=== PATIENT | female | born 1985 | race Caucasian/White ===

== ENCOUNTER → 2016-09-18 | Outpatient (CLI) | payer OTHER ==
[~2016-09-18] MED LIST: /CIPR75TA OR; /ONDA4TA OR; /TAMS4CA OR; ACET65TA PO; CIPR500T4 PO; COZA25TA8 PO; HUMALOG SC; HUMIRA SC; HUMUINJ IJ; LISI2.5T3 GT; NOVOLOG100 MG/ML SC; PERC5TAB8 PO; PERC7.5T8 PO; PRIL40CA PO; REMICADE IV; VICO5TAB OR; VIT D 2000 PO; [UNRECOGNIZED DRUG - OTHER] PO; [UNRECOGNIZED DRUG - OTHER] SUBQ
[2016-09-18 18:34] LABS: ALBUMIN 4.2 GM/DL (3.2-5.2); ANION GAP 10 MEQ/L (8-16); BLOOD UREA NITROGEN 21 MG/DL (7-18); CALCIUM LEVEL 9.1 MG/DL (8.5-10.1); CARBON DIOXIDE LEVEL 25 MEQ/L (21-32); CHLORIDE LEVEL 106 MEQ/L (98-107); CREATININE FOR GFR 0.67 MG/DL (0.55-1.02); GLOMERULAR FILTRATION RATE > 60.0 (>60); GLUCOSE, FASTING 81 MG/DL (70-105); PHOSPHORUS LEVEL 3.8 MG/DL (2.5-4.9); SODIUM LEVEL 141 MEQ/L (136-145)
== END ==
LOC: M LAB 16:31
PROVIDERS: ATTEND Internal Medicine Nephrology
DX: N18.2 Chronic kidney disease, stage 2 (mild) (principal); E10.21 Type 1 diabetes mellitus with diabetic nephropathy

== ENCOUNTER → 2016-10-15 | Outpatient (CLI) | payer OTHER ==
--- NOTE | 2016-10-15 15:07 | REP ---
MRI CERVICAL SPINE WITHOUT CONTRAST: HISTORY: Neck pain. There is no disc bulge or herniation. The spinal canal and the neural foramina are patent. The spinal cord is normal in signal intensity. There is no intradural extramedullary lesion. Normal signal intensity is present in the cervical vertebral bodies. IMPRESSION: There is no disc bulge or herniation. Signed by Jax Virk MD 10/15/2016 03:08 P
--- NOTE | 2016-10-15 15:08 | REP ---
MRI THORACIC SPINE WITHOUT CONTRAST: HISTORY: Neck and shoulder pain. There is no disc bulge or herniation. The spinal canal and the neural foramina are patent. The spinal cord is normal in signal intensity. There is no intradural extramedullary lesion. Normal signal intensity is present in the thoracic vertebral bodies. IMPRESSION: There is no disc bulge or herniation. Signed by Jax Virk MD 10/15/2016 03:09 P
--- NOTE | 2016-10-15 15:10 | REP ---
MRI LUMBAR SPINE WITHOUT CONTRAST: HISTORY: Back pain. There is no disc bulge or herniation at the L1-2 through L5-S1 levels. The nerves exit the neural foramina without compression. The conus medullaris is normal in appearance terminating at the level of the L1-2 intervertebral disc. Normal signal intensity is present in the lumbar intervertebral discs and vertebral bodies. IMPRESSION: There is no disc bulge or herniation. Signed by Jax Virk MD 10/15/2016 03:19 P
== END ==
LOC: M RAD 12:40
PROVIDERS: ATTEND Neurological Surgery
DX: M43.04 Spondylolysis, thoracic region (principal); M47.896 Other spondylosis, lumbar region

== ENCOUNTER → 2016-10-16 | Outpatient (CLI) | payer OTHER ==
--- NOTE | 2016-10-16 15:03 | REP ---
CERVICAL SPINE, EIGHT VIEWS: HISTORY: Ankylosing spondylitis. COMPARISON: 05/26/2016 There is no acute fracture. The intervertebral discs are normal in height. An osteophyte is present on the C4 vertebral body. The neural foramina are patent. There are 2 mm of anterior subluxation of C3 on C4 with flexion. There is 1 mm of retrolisthesis of C3 on C4 with extension. There are 2 mm of anterior subluxation of C4 on C5 with flexion. This is not seen in neutral or extension radiographs. IMPRESSION: Degenerative change as described above. Signed by Jax Virk MD 10/16/2016 03:04 P
--- NOTE | 2016-10-16 15:05 | REP ---
LUMBAR SPINE, SEVEN VIEWS: HISTORY: Ankylosing spondylitis. There is no acute fracture or subluxation. The L2-3 through L4-5 intervertebral discs are decreased in height, consistent with disc degeneration. The facet joints are normal in appearance. IMPRESSION: Degenerative change as described above. Signed by Jax Virk MD 10/16/2016 03:05 P
== END ==
LOC: M LAB 13:28
PROVIDERS: ATTEND Neurological Surgery
DX: M45.7 Ankylosing spondylitis of lumbosacral region (principal); M47.892 Other spondylosis, cervical region; M47.896 Other spondylosis, lumbar region

== ENCOUNTER → 2017-02-01 | Outpatient (CLI) | payer OTHER, MEDICAID | LOC: M LAB 17:08 | PROVIDERS: ATTEND Physician Assistant | DX: N91.2 Amenorrhea, unspecified (principal) ==

== ENCOUNTER → 2017-02-24 | Outpatient (CLI) | payer OTHER, MEDICAID ==
[2017-02-24 20:27] LABS: BASO # 0.1 K/mm3 (0.0-0.2); BASO % 1.6 % (0.0-1.0); EOS # 0.1 K/mm3 (0.0-0.50); EOS % 0.8 % (0.0-3.0); LARGE UNSTAINED CELL # 0.1 K/mm3 (0.0-0.4); LARGE UNSTAINED CELL % 1.7 % (0.0-4.0); LYMPH # 1.3 K/mm3 (1.5-4.5); LYMPH % 17.9 % (24.0-44.0); MEAN CORPUSCULAR HEMOGLOBIN 29.9 pg (27.0-33.0); MEAN CORPUSCULAR HGB CONC 33.1 g/dl (32.0-36.5); MEAN CORPUSCULAR VOLUME 90.2 fl (80.0-96.0); MONO # 0.3 K/mm3 (0.0-0.8); MONO % 4.5 % (0.0-5.0); NEUTROPHILS # 5.2 K/mm3 (1.8-7.7); NEUTROPHILS % 73.5 % (36.0-66.0); PLATELET COUNT, AUTOMATED 356 k/mm3 (150-450); RED CELL DISTRIBUTION WIDTH 12.7 % (11.5-14.5); WHITE BLOOD COUNT 7.1 K/mm3 (4.0-10.0)
[2017-02-26 11:31] LABS: HBsAg Prenatal NEGATIVE (NEGATIVE)
== END ==
LOC: M LAB 18:24
PROVIDERS: ATTEND Internal Medicine Rheumatology
DX: Z36 Encounter for antenatal screening of mother (principal); Z3A.00 Weeks of gestation of pregnancy not specified

== ENCOUNTER → 2017-05-10 | Outpatient (CLI) | payer OTHER, MEDICAID ==
--- NOTE | 2017-05-11 07:43 | REP ---
Clinical: Anatomical evaluation. Comparison: 04/22/2017 . Findings: Examination demonstrates a single live intrauterine in breech presentation. motion is identified by technologist. Placenta is noted anteriorly and grade zero without evidence for placenta previa or abruption. Amniotic fluid volume is normal. Cervix measures 3.4 cm in length and appears closed. Nuchal cord is suggested. Gestational age by current measurements 18 weeks 0 days with KAIA 10/11/2017 . FHR equals 150 beats per minute. BPD 4.1 cm 18 weeks 4 days HC 14.3 cm 17 weeks 4 days AC 12.4 cm 18 weeks 0 days FL 2.7 cm 18 weeks 0 days HL 2.5 cm 17 weeks 6 days HC/AC ratio 1.15 Estimated weight 220 grams ( 48th percentile). Anatomical assessment demonstrates normal structures including cranium, choroid plexus, cavum, cerebellum/posterior fossa, lungs, diaphragm, stomach, cord insertion/three-vessel cord, kidneys/bladder, spine, and extremities. Impression: 1. Single live intrauterine in breech presentation. Estimated weight normal. Nuchal cord suggested. 2. Limited evaluation of the facial features and heart/ventricular outflow tracts. Remainder of the anatomical assessment is complete and normal. Signed by Carter Goodman MD 05/11/2017 07:34 A
== END ==
LOC: M SMT 11:04
PROVIDERS: ATTEND Specialist
DX: Z36 Encounter for antenatal screening of mother (principal); Z3A.18 18 weeks gestation of pregnancy

== ENCOUNTER → 2017-05-11 | Outpatient (CLI) | payer OTHER, MEDICAID | LOC: M SMT 15:28 | PROVIDERS: ATTEND Specialist | DX: Z31.438 Encounter for other genetic testing of female for procreative management (principal) ==

== ENCOUNTER → 2017-06-07 | Outpatient (CLI) | payer OTHER, MEDICAID ==
--- NOTE | 2017-06-07 13:20 | REP ---
OB ULTRASOUND: Real-time sonographic evaluation of the gravid uterus performed. There is a single living intrauterine gestation. Estimated gestational age 22 weeks based on prior ultrasound EDC 10/11/2017. Today's measurements indicate appropriate growth. BPD 53 mm = 22 weeks 1 day, 53rd percentile HC 194 mm = 21 weeks 4 days, 39th percentile AC 174 mm = 22 weeks 2 days, 58th percentile Femur length 38 mm = 22 weeks 0 days, 51st percentile HC/AC ratio 1.11 within normal range. Estimated weight 479 grams, 51st percentile. Cervix is closed and measures 3.5 cm in length. heart rate 144 beats per minute. SEEN/GROSSLY UNREMARKABLE Lateral ventricles Yes Posterior fossa Yes Upper lip Yes Four-chamber heart Yes LVOT Yes RVOT Yes Stomach Yes Cord insertion Yes Three vessel cord Yes Kidneys Yes Bladder Yes Spine No position: Vertex. Placenta: Anterior and grade 0 with no previa or abruption. Amniotic fluid: Within normal limits. Signed by Jayjay Martinez MD 06/07/2017 04:32 P
== END ==
LOC: M SMT 10:35
PROVIDERS: ATTEND Specialist
DX: O24.012 Pre-existing type 1 diabetes mellitus, in pregnancy, second trimester (principal); Z36.89 Encounter for other specified antenatal screening; E10.9 Type 1 diabetes mellitus without complications; Z96.41 Presence of insulin pump (external) (internal); Z3A.22 22 weeks gestation of pregnancy

== ENCOUNTER 2017-07-12 09:46 | Outpatient (CLI) | payer MEDICAID, OTHER ==
[~2017-07-12] VITALS: Ht 165.1 cm; Wt 69.0 kg
[2017-07-12] VITALS (7 sets, daily range): BP systolic 116–140; BP diastolic 70–88
[2017-07-12] MEDS ORDERED: LR 1,000 ML IV SCH (10:15)
[2017-07-12] MEDS ORDERED: LACTATED RINGER'S 1000 ML IV ONE (10:15)
[2017-07-12] MEDS ORDERED: ONDANSETRON 4MG/2ML VIAL (J2405) IV ONE (10:30)
[2017-07-12] MEDS ORDERED: NS 1,000 ML IV ONE (11:00)
[2017-07-12] MEDS ORDERED: NS 500 ML IV SCH (11:00)
[2017-07-12] MEDS ORDERED: SODIUM CHLORIDE 0.9% 1000 ML IV SCH (11:00)
[2017-07-12 11:11] LABS: MEAN CORPUSCULAR HEMOGLOBIN 29.9 pg (27.0-33.0); MEAN CORPUSCULAR VOLUME 87.8 fl (80.0-96.0); PLATELET COUNT, AUTOMATED 301 10^3/uL (150-450); RED CELL DISTRIBUTION WIDTH 13.2 % (11.5-14.5); WHITE BLOOD COUNT 7.8 10^3/uL (4.0-10.0)
[2017-07-12] MEDS ORDERED: PRENTAB9 PO (11:19)
[2017-07-12 11:37] LABS: ALBUMIN 2.8 GM/DL (3.2-5.2); ALBUMIN/GLOBULIN RATIO 0.74 (1.00-1.93); ALKALINE PHOSPHATASE 66 U/L (45-117); ALT/SGPT 15 U/L (12-78); ANION GAP 17 MEQ/L (8-16); AST/SGOT 15 U/L (7-37); BILIRUBIN,TOTAL 0.5 MG/DL (0.2-1.0); BLOOD UREA NITROGEN 13 MG/DL (7-18); CALCIUM LEVEL 8.7 MG/DL (8.5-10.1); CARBON DIOXIDE LEVEL 14 MEQ/L (21-32); CHLORIDE LEVEL 103 MEQ/L (98-107); CREATININE FOR GFR 0.72 MG/DL (0.55-1.02); GLOMERULAR FILTRATION RATE > 60.0 (>60); GLUCOSE, FASTING 317 MG/DL (70-105); POTASSIUM SERUM 4.2 MEQ/L (3.5-5.1); SODIUM LEVEL 134 MEQ/L (136-145); TOTAL PROTEIN 6.6 GM/DL (6.4-8.2)
[2017-07-12] MEDS ORDERED: NS 1,000 ML IV SCH (12:00)
[2017-07-12] MEDS ORDERED: FAMOTIDINE IV BAG 20 MG in APPROPRIATE DILUENT 1 EA IV ONE (12:30)
--- NOTE | 2017-07-12 12:33 | IPNPDOC ---
Text Note Date of Service The patient was seen on 07/12/17. NOTE 32yo KAIA 10/07/17. Presents from office @ 27w4d with reports of vomiting since last night. Reports possible food poisoning altho no one else in the house has been ill. Unable to tolerate fluids since 2329. 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 Changed pump site this am. FH 150, moderate variability. No UC CBC 7.8>10.3/30.3<301 CMP - glucose 317, NA 134, K 4.2, LFT WNL UA 1+ protein, 3+ glucose, 2+ ketone, 1+ leuk esterase Consulted Dr King. IV hydration, antiemetics. Recheck labs after 2 litres NS infused. VS,Fishbone, I+O VS, Fishbone, I+O Laboratory Tests 07/12/17 10:47 Red Blood Count 3.45 L, Mean Corpuscular Volume 87.8, Mean Corpuscular Hemoglobin 29.9, Mean Corpuscular Hemoglobin Concent 34.0, Red Cell Distribution Width 13.2, Calcium Level 8.7, Aspartate Amino Transf (AST/SGOT) 15 , Alanine Aminotransferase (ALT/SGPT) 15, Alkaline Phosphatase 66, Total Bilirubin 0.5, Total Protein 6.6, Albumin 2.8 L Vital Signs Date Time Temp Pulse Resp B/P (MAP) Pulse Ox O2 Delivery O2 Flow Rate FiO2 07/12/17 11:13 114 18 140/88 (105) 07/12/17 10:19 98.8 I&O- Last 24 Hours up to 6 AM 07/13/17 06:00 Output Total 300 ml Balance -300 ml April Young CNM Jul 12, 2017 12:32
[2017-07-12 17:37] LABS: MEAN CORPUSCULAR HEMOGLOBIN 29.1 pg (27.0-33.0); MEAN CORPUSCULAR HGB CONC 33.1 g/dl (32.0-36.5); MEAN CORPUSCULAR VOLUME 87.9 fl (80.0-96.0); PLATELET COUNT, AUTOMATED 300 10^3/uL (150-450); RED CELL DISTRIBUTION WIDTH 13.2 % (11.5-14.5); WHITE BLOOD COUNT 6.8 10^3/uL (4.0-10.0)
[2017-07-12 17:57] LABS: ALBUMIN 2.5 GM/DL (3.2-5.2); ALBUMIN/GLOBULIN RATIO 0.63 (1.00-1.93); ALKALINE PHOSPHATASE 67 U/L (45-117); ALT/SGPT 15 U/L (12-78); ANION GAP 16 MEQ/L (8-16); AST/SGOT 11 U/L (7-37); BILIRUBIN,TOTAL 0.5 MG/DL (0.2-1.0); BLOOD UREA NITROGEN 12 MG/DL (7-18); CALCIUM LEVEL 7.6 MG/DL (8.5-10.1); CARBON DIOXIDE LEVEL 15 MEQ/L (21-32); CHLORIDE LEVEL 108 MEQ/L (98-107); CREATININE FOR GFR 0.62 MG/DL (0.55-1.02); GLOMERULAR FILTRATION RATE > 60.0 (>60); GLUCOSE, FASTING 144 MG/DL (70-105); POTASSIUM SERUM 3.8 MEQ/L (3.5-5.1); SODIUM LEVEL 139 MEQ/L (136-145); TOTAL PROTEIN 6.5 GM/DL (6.4-8.2)
--- NOTE | 2017-07-12 20:02 | IPNPDOC ---
Text Note Date of Service The patient was seen on 07/12/17. NOTE Much improved following IV hydration. Tolerating sips and chips NST reassuring. Glucose down to 144. CBC stable Consult Dr King. OK for discharge Encourage fluids, slow increase of solids Keep next appt. Warnings reviewed. VS,Fishbone, I+O VS, Fishbone, I+O Laboratory Tests 07/12/17 10:47 Red Blood Count 3.45 L, Mean Corpuscular Volume 87.8, Mean Corpuscular Hemoglobin 29.9, Mean Corpuscular Hemoglobin Concent 34.0, Red Cell Distribution Width 13.2, Calcium Level 8.7, Aspartate Amino Transf (AST/SGOT) 15 , Alanine Aminotransferase (ALT/SGPT) 15, Alkaline Phosphatase 66, Total Bilirubin 0.5, Total Protein 6.6, Albumin 2.8 L 07/12/17 17:16 Red Blood Count 3.23 L, Mean Corpuscular Volume 87.9, Mean Corpuscular Hemoglobin 29.1, Mean Corpuscular Hemoglobin Concent 33.1, Red Cell Distribution Width 13.2, Calcium Level 7.6 L, Aspartate Amino Transf (AST/SGOT) 11, Alanine Aminotransferase (ALT/SGPT) 15, Alkaline Phosphatase 67, Total Bilirubin 0.5, Total Protein 6.5, Albumin 2.5 L Vital Signs Date Time Temp Pulse Resp B/P (MAP) Pulse Ox O2 Delivery O2 Flow Rate FiO2 07/12/17 16:24 112 18 137/82 (100) 07/12/17 14:24 98.9 I&O- Last 24 Hours up to 6 AM 07/13/17 06:00 Intake Total 1800 ml Output Total 900 ml Balance 900 ml April Young CNM Jul 12, 2017 20:02
== END 2017-07-12 19:00 | disposition home or self-care (01) ==
LOC: M LDO 09:46
PROVIDERS: ATTEND Advanced Practice Midwife
DX: O99.89 Other specified diseases and conditions complicating pregnancy, childbirth and the puerperium (principal); Z3A.27 27 weeks gestation of pregnancy; R11.10 Vomiting, unspecified; O24.012 Pre-existing type 1 diabetes mellitus, in pregnancy, second trimester; E10.9 Type 1 diabetes mellitus without complications; Z96.41 Presence of insulin pump (external) (internal); Z88.8 Allergy status to other drugs, medicaments and biological substances; O99.612 Diseases of the digestive system complicating pregnancy, second trimester
CPT/HCPCS: 36415; 80053; 81001; 85027; 96360; 96361; 96375; J2405

== ENCOUNTER → 2017-07-28 | Outpatient (CLI) | payer OTHER ==
[~2017-07-28] MED LIST changes: +PRENTAB9 PO
--- NOTE | 2017-07-28 14:02 | REP ---
OB ULTRASOUND: Real-time sonographic evaluation of the gravid uterus performed. There is a single living intrauterine gestation. Estimated gestational age 29 weeks 2 days. EDC 10/11/2017. Today's measurements indicate appropriate growth. BPD 76 mm = 30 weeks 4 days, 69th percentile HC 281 mm = 30 weeks 5 days, 72nd percentile AC 273 mm = 31 weeks 3 days, 82nd percentile Femur length 55 mm = 29 weeks 0 days, 43rd percentile HC/AC ratio 1.03 within normal range. Estimated weight 1582 grams, 71st percentile. Cervix is closed and measures 4.3 cm in length. heart rate 144 beats per minute. Amniotic fluid within normal limits, [place] 17.7 within normal range of 9.1-22.2. Biophysical profile score 8 out of 8. S/D ratio 3.51 slightly above normal range of 2.5 to 3.5. RI 0.72 within normal range of 0.59-0.75. The lateral ventricles, posterior fossa, stomach, three vessel cord, kidneys, and bladder are visualized and are grossly unremarkable. position vertex. Placenta posterior and fundal with no previa or abruption, grade 2. Signed by Jayjay Martinez MD 07/29/2017 09:13 A
== END ==
LOC: M SMT 11:07
PROVIDERS: ATTEND Obstetrics & Gynecology
DX: O24.012 Pre-existing type 1 diabetes mellitus, in pregnancy, second trimester (principal); Z3A.30 30 weeks gestation of pregnancy

== ENCOUNTER 2017-08-09 18:23 | Emergency (ER) | payer OTHER ==
[~2017-08-09] VITALS: Ht 165.1 cm; Wt 69.1 kg
[2017-08-09 18:24] VITALS: BP 142/81
[2017-08-09] MEDS ORDERED: ACET50TA PO (19:06)
[2017-08-09] MEDS ORDERED: INSUH10VL SC (19:08)
[2017-08-09] MEDS ORDERED: TUMS500C PO (19:09)
[2017-08-09] MEDS ORDERED: ZANTTAB PO (19:09)
== END 2017-08-09 18:53 | disposition admitted as inpatient to this hospital (09) ==
LOC: M ED 18:23
DX: Z53.21 Procedure and treatment not carried out due to patient leaving prior to being seen by health care provider (principal)

== ENCOUNTER 2017-08-09 18:37 | Outpatient (CLI) | payer OTHER ==
[~2017-08-09] VITALS: Ht 165.1 cm; Wt 76.4 kg
[2017-08-09 18:49] VITALS: BP 146/87
[2017-08-09] MEDS ORDERED: ACET50TA PO (19:06)
[2017-08-09 19:08] VITALS: BP 132/78
[2017-08-09] MEDS ORDERED: INSUH10VL SC (19:08)
[2017-08-09] MEDS ORDERED: ZANTTAB PO (19:09)
[2017-08-09] MEDS ORDERED: TUMS500C PO (19:09)
[2017-08-09 19:23] VITALS: BP 128/90
[2017-08-09 19:35] LABS: BASO % 0.3 % (0.0-1.0); EOS % 0.1 % (0.0-3.0); IMMATURE GRANULOCYTE % 0.7 % (0-0); LYMPH # 0.9 10^3/uL (1.5-4.5); LYMPH % 12.2 % (24.0-44.0); MEAN CORPUSCULAR HEMOGLOBIN 27.9 pg (27.0-33.0); MEAN CORPUSCULAR HGB CONC 32.7 g/dl (32.0-36.5); MEAN CORPUSCULAR VOLUME 85.3 fl (80.0-96.0); MONO # 0.7 10^3/uL (0.0-0.8); MONO % 9.8 % (0.0-5.0); NEUTROPHILS # 5.7 10^3/uL (1.8-7.7); NEUTROPHILS % 76.9 % (36.0-66.0); PLATELET COUNT, AUTOMATED 328 10^3/uL (150-450); RED CELL DISTRIBUTION WIDTH 12.6 % (11.5-14.5); WHITE BLOOD COUNT 7.4 10^3/uL (4.0-10.0)
[2017-08-09] MEDS ORDERED: ACETAMINOPHEN 500 MG TAB PO PRN (20:00)
--- NOTE | 2017-08-09 20:00 | IPNPDOC ---
Text Note Date of Service The patient was seen on 08/09/17. NOTE 32yo KAIA 10/07/17. Presents from ED @ 31w4d with complaints of extreme shortness of breath since last night. Denies LOF or bleeding. Reports backache but no uterine contractions. Fetus active. History significant for type I diabetes. Pt uses an insulin pump. She has previously expeienced DKA. Denies recent n/v/d. Appears air hungry, slow deep inhalations VSS, 100% sat on room air FH 145, moderate variability, + accels Abdomen soft, gravid. No UC palpated or noted on monitor Lower extremity edema + [address] King for orders. Labs and xray pending. VS,Fishbone, I+O VS, Fishbone, I+O Laboratory Tests 08/09/17 19:22 Red Blood Count 3.19 L, Mean Corpuscular Volume 85.3, Mean Corpuscular Hemoglobin 27.9, Mean Corpuscular Hemoglobin Concent 32.7, Red Cell Distribution Width 12.6, Neutrophils (%) (Auto) 76.9 H, Lymphocytes (%) (Auto) 12.2 L, Monocytes (%) (Auto) 9.8 H, Eosinophils (%) (Auto) 0.1, Basophils (%) ( Auto) 0.3, Neutrophils # (Auto) 5.7, Lymphocytes # (Auto) 0.9 L, Monocytes # ( Auto) 0.7, Eosinophils # (Auto) 0.0, Basophils # (Auto) 0.0 Vital Signs Date Time Temp Pulse Resp B/P (MAP) Pulse Ox O2 Delivery O2 Flow Rate FiO2 08/09/17 19:24 111 08/09/17 19:23 128/90 (103) 08/09/17 19:08 22 100 Room Air 08/09/17 19:01 99.3 April Young CNM Aug 09, 2017 20:00
[2017-08-09 20:01] LABS: ALBUMIN 2.4 GM/DL (3.2-5.2); ALBUMIN/GLOBULIN RATIO 0.63 (1.00-1.93); ALKALINE PHOSPHATASE 112 U/L (45-117); ALT/SGPT 17 U/L (12-78); ANION GAP 7 MEQ/L (8-16); AST/SGOT 19 U/L (7-37); BILIRUBIN,TOTAL 0.4 MG/DL (0.2-1.0); BLOOD UREA NITROGEN 9 MG/DL (7-18); CALCIUM LEVEL 8.5 MG/DL (8.5-10.1); CARBON DIOXIDE LEVEL 25 MEQ/L (21-32); CHLORIDE LEVEL 106 MEQ/L (98-107); CREATININE FOR GFR 0.52 MG/DL (0.55-1.02); GLOMERULAR FILTRATION RATE > 60.0 (>60); GLUCOSE, FASTING 115 MG/DL (70-105); POTASSIUM SERUM 3.8 MEQ/L (3.5-5.1); SODIUM LEVEL 138 MEQ/L (136-145); TOTAL PROTEIN 6.2 GM/DL (6.4-8.2); URIC ACID 4.9 MG/DL (2.6-6.0)
--- NOTE | 2017-08-09 20:09 | REP ---
Clinical: Shortness of breath and tachycardia. Comparison: 03/03/2013 . Findings: The mediastinum and cardiac silhouette are stable and within normal limits for portable technique. The lung weber are clear without acute consolidation, effusion, or pneumothorax. Skeletal structures are intact. Impression: No acute cardiopulmonary process appreciated. Signed by Carter Goodman MD 08/09/2017 08:00 P
[2017-08-09] MEDS ORDERED: ALPRAZolam 0.25 MG TAB PO ONE (20:45)
--- NOTE | 2017-08-09 22:01 | ECGEPIP ---
Stationary ECG Study [facility] Test Date: 2017-08-09 Pat Name: YAJAIRA HUNG Department: Room: - Gender: F [employer]: : 1985 Requested By: April Mesa CNM Order Number: [id number] Reading MD: Naseem Cowart Measurements Intervals [place] Rate: 106 P: 44 IA: 130 QRS: 71 QRSD: 90 T: 9 QT: 329 QTc: 439 Interpretive Statements Sinus tachycardia Low QRS complex voltage in the limb leads Delayed anterior R wave progression Nonspecific T wave abnormality No significant change when compared to prior tracing of 11/12/2011 Electronically Signed On 08-09-2017 22:01:10 EST by Naseem Cowart
--- NOTE | 2017-08-09 22:09 | IPNPDOC ---
Text Note Date of Service The patient was seen on 08/09/17. NOTE Pt reports feeling improvement with add'l tylenol and xanax. Respirations easy, vital signs remain stable Cat I tracing EKG stable compared to 2011. Reviewed pt status with Dr King. OK to discharge home with instructions to call with any concerns. Pt has appt tomorrow am. VS,Fishbone, I+O VS, Fishbone, I+O Laboratory Tests 08/09/17 19:22 Red Blood Count 3.19 L, Mean Corpuscular Volume 85.3, Mean Corpuscular Hemoglobin 27.9, Mean Corpuscular Hemoglobin Concent 32.7, Red Cell Distribution Width 12.6, Neutrophils (%) (Auto) 76.9 H, Lymphocytes (%) (Auto) 12.2 L, Monocytes (%) (Auto) 9.8 H, Eosinophils (%) (Auto) 0.1, Basophils (%) ( Auto) 0.3, Neutrophils # (Auto) 5.7, Lymphocytes # (Auto) 0.9 L, Monocytes # ( Auto) 0.7, Eosinophils # (Auto) 0.0, Basophils # (Auto) 0.0, Calcium Level 8.5, Aspartate Amino Transf (AST/SGOT) 19, Alanine Aminotransferase (ALT/SGPT) 17, Lactate Dehydrogenase 181, Alkaline Phosphatase 112, Total Bilirubin 0.4, Uric Acid 4.9, Total Protein 6.2 L, Albumin 2.4 L Vital Signs Date Time Temp Pulse Resp B/P (MAP) Pulse Ox O2 Delivery O2 Flow Rate FiO2 08/09/17 19:24 111 08/09/17 19:23 128/90 (103) 08/09/17 19:08 22 100 Room Air 08/09/17 19:01 99.3 April Young CNM Aug 09, 2017 22:09
== END 2017-08-09 22:20 | disposition home or self-care (01) ==
LOC: M LDO 18:37
PROVIDERS: ATTEND Advanced Practice Midwife
DX: O99.89 Other specified diseases and conditions complicating pregnancy, childbirth and the puerperium (principal); Z3A.31 31 weeks gestation of pregnancy; R06.02 Shortness of breath; M54.9 Dorsalgia, unspecified; O24.013 Pre-existing type 1 diabetes mellitus, in pregnancy, third trimester; Z96.41 Presence of insulin pump (external) (internal); Z88.8 Allergy status to other drugs, medicaments and biological substances; O26.893 Other specified pregnancy related conditions, third trimester

== ENCOUNTER → 2017-08-10 | Outpatient (CLI) | payer OTHER ==
[~2017-08-10] MED LIST changes: +ACET50TA PO; +INSUH10VL SC; +TUMS500C PO; +ZANTTAB PO
== END ==
LOC: M SMT 11:57
PROVIDERS: ATTEND Specialist
DX: R06.09 Other forms of dyspnea (principal)

== ENCOUNTER → 2017-08-17 | Outpatient (CLI) | payer OTHER | LOC: M SMT 13:00 | DX: O24.012 Pre-existing type 1 diabetes mellitus, in pregnancy, second trimester (principal); Z3A.32 32 weeks gestation of pregnancy | CPT/HCPCS: 76816 ==

== ENCOUNTER 2017-08-30 11:34 | Inpatient (IN) | payer OTHER ==
[2017-08-30] MEDS ORDERED: LR 1,000 ML IV (11:55)
[2017-08-30 13:21] LABS: HEMATOCRIT 29.4 % (36.0-47.0); HEMOGLOBIN 9.7 g/dl (12.0-16.0); MEAN CORPUSCULAR HEMOGLOBIN 27.6 pg (27.0-33.0); MEAN CORPUSCULAR VOLUME 83.5 fl (80.0-96.0); PLATELET COUNT, AUTOMATED 246 10^3/uL (150-450); RED BLOOD COUNT 3.52 10^6/uL (4.00-5.40); RED CELL DISTRIBUTION WIDTH 13.9 % (11.5-14.5); WHITE BLOOD COUNT 6.5 10^3/uL (4.0-10.0)
[2017-08-30 13:31] LABS: FIBRINOGEN 394 MG/DL (221-452)
[2017-08-30 13:43] LABS: AMPHETAMINES URINE REFLEX NEGATIVE (NEGATIVE); BARBITURATES URINE REFLEX NEGATIVE (NEGATIVE); BENZODIAZEPINES URINE REFLEX NEGATIVE (NEGATIVE); CANNABINOIDS URINE REFLEX NEGATIVE (NEGATIVE); COCAINE METABOLITE URINE REFLE NEGATIVE (NEGATIVE); METHADONE URINE REFLEX NEGATIVE (NEGATIVE); OPIATES URINE REFLEX NEGATIVE (NEGATIVE); PHENCYCLIDINE URINE REFLEX NEGATIVE (NEGATIVE)
[2017-08-30 13:45] LABS: PROTHROMBIN TIME 12.2 SECONDS (12.4-14.5)
[2017-08-30 13:46] LABS: PARTIAL THROMBOPLASTIN TIME 24.7 SECONDS (26.8-37.9)
[2017-08-30 13:53] LABS: ALBUMIN 2.3 GM/DL (3.2-5.2); ALBUMIN/GLOBULIN RATIO 0.62 (1.00-1.93); ALKALINE PHOSPHATASE 93 U/L (45-117); ALT/SGPT 17 U/L (12-78); ANION GAP 10 MEQ/L (8-16); AST/SGOT 23 U/L (7-37); BILIRUBIN,TOTAL 0.4 MG/DL (0.2-1.0); BLOOD UREA NITROGEN 14 MG/DL (7-18); CARBON DIOXIDE LEVEL 22 MEQ/L (21-32); CHLORIDE LEVEL 104 MEQ/L (98-107); CREATININE FOR GFR 0.71 MG/DL (0.55-1.02); GLOMERULAR FILTRATION RATE > 60.0 (>60); GLUCOSE, FASTING 211 MG/DL (70-105); LDH LACTATE DEHYDROGENASE 224 U/L (84-246); POTASSIUM SERUM 4.1 MEQ/L (3.5-5.1); SODIUM LEVEL 136 MEQ/L (136-145); URIC ACID 7.2 MG/DL (2.6-6.0)
[2017-08-30 15:17] LABS: APPEARANCE, URINE CLOUDY (CLEAR); BACTERIA, URINE AUTO 1+ (NEGATIVE); BILIRUBIN, URINE AUTO NEGATIVE (NEGATIVE); BLOOD, URINE BLOOD 2+ (NEGATIVE); COLOR, URINE YELLOW (YELLOW); GLUCOSE, URINE (UA) AUTO 3+ mg/dL (NEGATIVE); KETONE, URINE AUTO NEGATIVE (NEGATIVE); LEUKOCYTE ESTERASE, URINE AUTO NEGATIVE (NEGATIVE); MUCUS, URINE SMALL (NEGATIVE); NITRITE, URINE AUTO NEGATIVE (NEGATIVE); PROTEIN, URINE AUTO 3+ mg/dL (NEGATIVE); RBC, URINE AUTO 52 /HPF (0-3); SPECIFIC GRAVITY URINE AUTO 1.022 (1.002-1.035); SQUAMOUS EPITHELIAL CELL UR AU 11 /HPF (0-6); UROBILINOGEN, URINE AUTO 0.2 mg/dL (0.0-2.0); WBC, URINE AUTO 8 /HPF (0-3)
[2017-08-30 15:29] LABS: TOTAL PROTEIN,RANDOM URINE 619.9 MG/DL (0.0-12.0)
[2017-08-30] MEDS ORDERED: INSULIN IV RATE CHANGE DOCUMENTATION ML/HR XX (19:30)
[2017-08-30 19:48] LABS: BEDSIDE GLUCOSE 139 MG/DL (70-105)
[2017-08-30] MEDS: NS 1,000 ML IV (19:49)
[2017-08-30] MEDS: BETAMETHASONE SOLUSPAN 6MG/ML INJ 5ML (J0702) IM (19:53)
[2017-08-30] MEDS: INSULIN HUMAN REGULAR 100 UNITS in NS 99 ML IV (20:11)
[2017-08-30] MEDS: FAMOTIDINE 20 MG TAB PO (20:15)
[2017-08-30 21:00] LABS: ESTIMATED AVERAGE GLUCOSE 223 MG/DL (60-110); HEMOGLOBIN A1c 9.4 %
[2017-08-30 21:49] LABS: BEDSIDE GLUCOSE 111 MG/DL (70-105)
[2017-08-30] MEDS: D5W/0.9% SODIUM CHLORIDE 1,000 ML IV (23:44)
[2017-08-30 23:47] LABS: BEDSIDE GLUCOSE 65 MG/DL (70-105)
[2017-08-31] MEDS: NS 1,000 ML IV ×3 (01:42→22:46)
[2017-08-31 06:46] LABS: BEDSIDE GLUCOSE 142 MG/DL (70-105)
[2017-08-31 07:14] LABS: BEDSIDE GLUCOSE 79 MG/DL (70-105)
[2017-08-31 07:14] LABS: BEDSIDE GLUCOSE 84 MG/DL (70-105)
[2017-08-31 07:21] LABS: BASO % 0.2 % (0.0-1.0); EOS % 0.2 % (0.0-3.0); HEMATOCRIT 30.5 % (36.0-47.0); HEMOGLOBIN 9.7 g/dl (12.0-16.0); IMMATURE GRANULOCYTE # 0.1 10^3/uL (0-0); IMMATURE GRANULOCYTE % 1.2 % (0-0); LYMPH # 0.7 10^3/uL (1.5-4.5); MEAN CORPUSCULAR HGB CONC 31.8 g/dl (32.0-36.5); MONO # 0.3 10^3/uL (0.0-0.8); MONO % 3.8 % (0.0-5.0); NEUTROPHILS # 5.5 10^3/uL (1.8-7.7); NEUTROPHILS % 83.6 % (36.0-66.0); PLATELET COUNT, AUTOMATED 282 10^3/uL (150-450); RED BLOOD COUNT 3.59 10^6/uL (4.00-5.40); RED CELL DISTRIBUTION WIDTH 14.5 % (11.5-14.5); WHITE BLOOD COUNT 6.5 10^3/uL (4.0-10.0)
[2017-08-31 07:52] LABS: BEDSIDE GLUCOSE 139 MG/DL (70-105)
[2017-08-31 07:55] LABS: ALBUMIN 2.4 GM/DL (3.2-5.2); ALBUMIN/GLOBULIN RATIO 0.63 (1.00-1.93); ALKALINE PHOSPHATASE 84 U/L (45-117); ALT/SGPT 19 U/L (12-78); ANION GAP 12 MEQ/L (8-16); AST/SGOT 37 U/L (7-37); BILIRUBIN,TOTAL 0.5 MG/DL (0.2-1.0); BLOOD UREA NITROGEN 17 MG/DL (7-18); CALCIUM LEVEL 7.7 MG/DL (8.5-10.1); CARBON DIOXIDE LEVEL 18 MEQ/L (21-32); CHLORIDE LEVEL 105 MEQ/L (98-107); CREATININE FOR GFR 0.79 MG/DL (0.55-1.02); GLOMERULAR FILTRATION RATE > 60.0 (>60); GLUCOSE, FASTING 121 MG/DL (70-105); LDH LACTATE DEHYDROGENASE 217 U/L (84-246); POTASSIUM SERUM 4.6 MEQ/L (3.5-5.1); SODIUM LEVEL 135 MEQ/L (136-145); TOTAL PROTEIN 6.2 GM/DL (6.4-8.2); URIC ACID 7.5 MG/DL (2.6-6.0)
[2017-08-31] MEDS: INSULIN HUMAN REGULAR 100 UNITS in NS 99 ML IV (08:01)
[2017-08-31] MEDS: BETAMETHASONE SOLUSPAN 6MG/ML INJ 5ML (J0702) IM (09:16)
[2017-08-31] MEDS ORDERED: ONDANSETRON 4MG/2ML VIAL (J2405) IV (09:17)
[2017-08-31] MEDS ORDERED: NALOXONE INJ 0.4 MG/1 ML VIAL (J2310) IV ×2 (09:17)
[2017-08-31] MEDS ORDERED: METOCLOPRAMIDE INJ 10MG/2ML VIAL (J2765) IV (09:17)
[2017-08-31] MEDS ORDERED: NALBUPHINE HCL 10 MG/ML AMP (J2300) IV (09:17)
[2017-08-31 09:41] LABS: BEDSIDE GLUCOSE 111 MG/DL (70-105)
[2017-08-31] MEDS: BICITRA 30ML SOLN UDC PO (10:25)
[2017-08-31] MEDS ORDERED: OXYTOCIN INJ 10 UNITS/ML VIAL (J2590) As Ordered (10:58)
[2017-08-31] MEDS ORDERED: MORPHINE PRES-FREE INJ 10 MG/10 ML VIAL (J2274) As Ordered (10:58)
[2017-08-31] MEDS ORDERED: PHENYLephrine HCL 500 MCG/5 ML (100MCG/ML) SYRINGE (J2370) As Ordered (10:58)
[2017-08-31] MEDS ORDERED: ONDANSETRON 4MG/2ML VIAL (J2405) As Ordered (10:58)
[2017-08-31 11:22] LABS: CORD GAS ABE A -9.6; CORD GAS ABE V -8.7; CORD GAS HCO3 A 21.4 MEQ/L; CORD GAS HCO3 V 19.1 MEQ/L; CORD GAS O2 SAT A 19.4 %; CORD GAS O2 SAT V 37.6 %; CORD GAS PCO2 A 71.6 mmHg; CORD GAS PCO2 V 48.3 mmHg; CORD GAS PH A 7.093 UNITS; CORD GAS PH V 7.214 UNITS; CORD GAS PO2 A 14.3 mmHg; CORD GAS PO2 V 20.6 mmHg; CORD GAS SBC A 15.4 MEQ/L; CORD GAS SBC V 16.3 MEQ/L; CORD GAS TCO2 A 23.6 MEQ/L; CORD GAS TCO2 V 20.5 MEQ/L
[2017-08-31] MEDS: OXYTOCIN DRIP 30 UNITS in APPROPRIATE DILUENT 1 EA IV (11:45)
[2017-08-31] MEDS ORDERED: PERCOCET 5MG/325MG TAB PO (11:45)
[2017-08-31] MEDS ORDERED: fentaNYL 100 MCG/2 ML INJECTION (J3010) IV (11:45)
[2017-08-31] MEDS ORDERED: MEPERIDINE INJ 25 MG/ML VIAL (J2175) IV (11:45)
[2017-08-31] MEDS ORDERED: DOCUSATE SODIUM 100 MG CAP PO (11:45)
[2017-08-31] MEDS ORDERED: KETOROLAC 30 MG/ML VIAL (J1885) IV (12:00)
[2017-08-31] MEDS: MAG Sulf (L&D) 4 GM/100 ML 4 GM in APPROPRIATE DILUENT 1 EA IV (12:30)
[2017-08-31] MEDS: MAG Sulf (OBGYN) 20GM/500ML 20,000 MG in APPROPRIATE DILUENT 1 EA IV ×2 (12:50→21:34)
[2017-08-31 13:19] LABS: BEDSIDE GLUCOSE 198 MG/DL (70-105)
[2017-08-31] MEDS: RHOGAM 300 MCG (1500 IU) INJ (J2790) IM (14:51)
[2017-08-31] MEDS: MEASLES,MUMPS,RUBELLA VACCINE INJ (MMR-II) (90707) SC (14:51)
[2017-08-31] MEDS: LR 1,000 ML IV (15:44)
[2017-08-31] MEDS: KETOROLAC 30 MG/ML VIAL (J1885) IV ×2 (17:09→23:29)
[2017-08-31 17:31] LABS: BEDSIDE GLUCOSE 228 MG/DL (70-105)
[2017-08-31] MEDS: ONDANSETRON 4MG/2ML VIAL (J2405) IV (19:50)
[2017-08-31] MEDS ORDERED: INSULIN HUMAN REGULAR 100 UNITS in NS 99 ML IV ×2 (21:11→21:14)
[2017-08-31] MEDS ORDERED: NS 1,000 ML IV (21:14)
[2017-08-31] MEDS ORDERED: INSULIN IV RATE CHANGE DOCUMENTATION ML/HR XX (21:15)
[2017-08-31] MEDS: PROMETHAZINE INJ 25 MG/ML VIAL (J2550) IV (22:35)
[2017-08-31] MEDS: ACETAMINOPHEN 500 MG TAB PO (22:43)
[2017-08-31 22:56] LABS: BEDSIDE GLUCOSE 265 MG/DL (70-105)
[2017-08-31 23:07] LABS: MAGNESIUM LEVEL 6.8 MG/DL (1.8-2.4)
[2017-08-31 23:48] LABS: BEDSIDE GLUCOSE 313 MG/DL (70-105)
[2017-09-01 04:49] LABS: BEDSIDE GLUCOSE 251 MG/DL (70-105)
[2017-09-01] MEDS: NS 1,000 ML IV ×3 (05:11→21:11)
[2017-09-01] MEDS: KETOROLAC 30 MG/ML VIAL (J1885) IV ×2 (05:40→11:45)
[2017-09-01 07:09] LABS: HEMATOCRIT 26.4 % (36.0-47.0); HEMOGLOBIN 8.7 g/dl (12.0-16.0); MEAN CORPUSCULAR HEMOGLOBIN 27.8 pg (27.0-33.0); MEAN CORPUSCULAR VOLUME 84.3 fl (80.0-96.0); PLATELET COUNT, AUTOMATED 269 10^3/uL (150-450); RED BLOOD COUNT 3.13 10^6/uL (4.00-5.40); RED CELL DISTRIBUTION WIDTH 14.6 % (11.5-14.5); WHITE BLOOD COUNT 13.5 10^3/uL (4.0-10.0)
[2017-09-01 07:26] LABS: ALT/SGPT 26 U/L (12-78); AST/SGOT 58 U/L (7-37); BILIRUBIN,TOTAL 0.3 MG/DL (0.2-1.0); CREATININE FOR GFR 0.81 MG/DL (0.55-1.02); GLOMERULAR FILTRATION RATE > 60.0 (>60); LDH LACTATE DEHYDROGENASE 289 U/L (84-246); URIC ACID 8.1 MG/DL (2.6-6.0)
[2017-09-01 08:17] LABS: BEDSIDE GLUCOSE 174 MG/DL (70-105)
[2017-09-01] MEDS: PRENATAL VITAMINS CHEWABLE TABLET PO (08:55)
[2017-09-01] MEDS: MAG Sulf (OBGYN) 20GM/500ML 20,000 MG in APPROPRIATE DILUENT 1 EA IV (08:55)
[2017-09-01] MEDS ORDERED: SLF 3 ML SYR IV (12:15)
[2017-09-01 12:33] LABS: BEDSIDE GLUCOSE 157 MG/DL (70-105)
[2017-09-01] MEDS: SLF 3 ML SYR IV ×2 (14:30→22:00)
[2017-09-01] MEDS: PERCOCET 5MG/325MG TAB PO (17:51)
[2017-09-01 17:52] LABS: BEDSIDE GLUCOSE 135 MG/DL (70-105)
[2017-09-01] MEDS: IBUPROFEN 800 MG TAB PO (18:42)
[2017-09-02] MEDS: PERCOCET 5MG/325MG TAB PO ×3 (00:57→17:29)
[2017-09-02] MEDS: IBUPROFEN 800 MG TAB PO ×3 (03:08→18:32)
[2017-09-02] MEDS: NS 1,000 ML IV ×3 (05:11→21:11)
[2017-09-02] MEDS: SLF 3 ML SYR IV ×3 (06:00→22:00)
[2017-09-02] MEDS ORDERED: medroxyPROGESTERone ACET IM SUSP 150 MG/ML VIAL (J1050) IM (06:30)
[2017-09-02] MEDS: ONDANSETRON 4MG/2ML VIAL (J2405) IV (08:21)
[2017-09-02] MEDS: PRENATAL VITAMINS CHEWABLE TABLET PO (09:00)
[2017-09-02 11:16] LABS: BEDSIDE GLUCOSE 69 MG/DL (70-105)
[2017-09-02 14:53] LABS: BEDSIDE GLUCOSE 271 MG/DL (70-105)
[2017-09-02 18:45] LABS: BEDSIDE GLUCOSE 153 MG/DL (70-105)
[2017-09-02] MEDS: LABETALOL 100 MG TAB PO (20:55)
[2017-09-02] MEDS: ALPRAZolam 0.25 MG TAB PO (21:03)
[2017-09-02 21:12] LABS: BEDSIDE GLUCOSE 105 MG/DL (70-105)
[2017-09-03] MEDS: PERCOCET 5MG/325MG TAB PO (00:08)
[2017-09-03] MEDS: IBUPROFEN 800 MG TAB PO ×3 (02:56→19:04)
[2017-09-03] MEDS: NS 1,000 ML IV ×3 (05:11→20:20)
[2017-09-03] MEDS: SLF 3 ML SYR IV ×3 (08:29→21:17)
[2017-09-03] MEDS: ONDANSETRON 4MG/2ML VIAL (J2405) IV (08:29)
[2017-09-03] MEDS: PRENATAL VITAMINS CHEWABLE TABLET PO (09:50)
[2017-09-03] MEDS: LABETALOL 100 MG TAB PO ×2 (09:51→20:12)
[2017-09-03 12:04] LABS: BEDSIDE GLUCOSE 225 MG/DL (70-105)
[2017-09-03 18:31] LABS: BEDSIDE GLUCOSE 165 MG/DL (70-105)
[2017-09-03 18:31] LABS: BEDSIDE GLUCOSE 149 MG/DL (70-105)
[2017-09-04] MEDS: IBUPROFEN 800 MG TAB PO ×2 (03:28→11:44)
[2017-09-04] MEDS: NS 1,000 ML IV (05:11)
[2017-09-04] MEDS: SLF 3 ML SYR IV (05:49)
[2017-09-04] MEDS: ONDANSETRON 4MG/2ML VIAL (J2405) IV (05:56)
[2017-09-04] MEDS: LABETALOL 100 MG TAB PO (08:03)
[2017-09-04] MEDS: PRENATAL VITAMINS CHEWABLE TABLET PO (08:03)
[2017-09-04] MEDS: medroxyPROGESTERone ACET IM SUSP 150 MG/ML VIAL (J1050) IM (12:25)
[2017-09-04 12:28] LABS: BEDSIDE GLUCOSE 290 MG/DL (70-105)
[2017-09-04 12:28] LABS: BEDSIDE GLUCOSE 287 MG/DL (70-105)
== END 2017-09-04 12:46 | disposition home or self-care (01) | DRG 540 ==
LOC: M LDO 11:34 → M OBS 08-31 18:53 → M LDI 20:00
PROC: 10D00Z1 Extraction of Products of Conception, Low, Open Approach (ICD-10-PCS; principal; 2017-08-31 10:32)
DX: O14.14 Severe pre-eclampsia complicating childbirth (principal); O24.013 Pre-existing type 1 diabetes mellitus, in pregnancy, third trimester; Z3A.34 34 weeks gestation of pregnancy; Z79.4 Long term (current) use of insulin; O34.211 Maternal care for low transverse scar from previous cesarean delivery; O76 Abnormality in fetal heart rate and rhythm complicating labor and delivery; Z37.0 Single live birth

== ENCOUNTER → 2017-12-13 | Outpatient (REF) | payer OTHER | LOC: M LAB REF 12-14 18:58 | DX: J02.0 Streptococcal pharyngitis (principal) | CPT/HCPCS: 87070 ==

== ENCOUNTER → 2020-12-20 | Outpatient (CLI) | payer OTHER ==
[~2020-12-20] MED LIST changes: -/ONDA4TA OR; -/TAMS4CA OR; -ACET50TA PO; +COLA100C5 PO; +FLOM0.4C39 OR; +LABE100T4 PO; +LISI2.5T2 GT; -LISI2.5T3 GT; +MAPA500T2 PO; +MOTR200T44 PO; +ONDA-1 OR; +OXYC1TAB23 PO; +RANI15TA PO; +XANA0.25 PO; +ZANT150T40 PO; -ZANTTAB PO
[2020-12-20 16:27] LABS: BASO # 0.1 10^3/uL (0.0-0.2); BASO % 0.7 % (0.0-1.0); EOS # 0.1 10^3/uL (0.0-0.5); EOS % 1.4 % (0.0-3.0); HEMATOCRIT 35.4 % (36.0-47.0); HEMOGLOBIN 11.1 g/dl (12.0-15.5); LYMPH # 1.1 10^3/uL (1.5-5.0); LYMPH % 16.2 % (24.0-44.0); MEAN CORPUSCULAR HEMOGLOBIN 25.5 pg (27.0-33.0); MEAN CORPUSCULAR HGB CONC 31.4 g/dl (32.0-36.5); MEAN CORPUSCULAR VOLUME 81.4 fl (80.0-96.0); MONO # 0.5 10^3/uL (0.0-0.8); NEUTROPHILS # 5.2 10^3/uL (1.5-8.5); NEUTROPHILS % 74.4 % (36.0-66.0); PLATELET COUNT, AUTOMATED 451 10^3/uL (150-450); RED BLOOD COUNT 4.35 10^6/uL (4.00-5.40)
--- NOTE | 2020-12-20 16:36 | REP ---
INDICATION: RHEUMATOID ARTH W RHEUMATOID FACTOR,LABS 1ST. COMPARISON: Right ankle of 01/03/2016 no prior left ankle TECHNIQUE: Four views bilateral FINDINGS: There is no evidence of a gross fracture.. The examination was obtained with the ankle in extreme flexion. This causes significant limitation as the os calcis is superimposed over the distal tibia, distal fibula, and the talus on all views. IMPRESSION: Extreme limitation in findings as described above bilateral. <Electronically signed by Matti Mcarthur > 12/20/20 [id number]
--- NOTE | 2020-12-20 16:38 | REP ---
INDICATION: RHEUMATOID ARTH W RHEUMATOID FACTOR,LABS 1ST. COMPARISON: None. TECHNIQUE: Three views of the bilateral shoulder were performed. FINDINGS: The acromioclavicular and glenohumeral relationships are within normal limits. There is no acute fracture or destructive osseous lesion. IMPRESSION: Within normal limits bilateral <Electronically signed by Matti Mcarthur > 12/20/20 [id number]
[2020-12-20 16:51] LABS: ALBUMIN 3.8 GM/DL (3.2-5.2); ALT/SGPT 13 U/L (12-78); BILIRUBIN,DIRECT 0.1 MG/DL (0.0-0.2); BILIRUBIN,TOTAL 0.4 MG/DL (0.2-1.0); BLOOD UREA NITROGEN 15 MG/DL (7-18); C REACTIVE PROTEIN QUANTITATIV 3.27 MG/DL (0.00-0.30); CALCIUM LEVEL 9.5 MG/DL (8.5-10.1); CARBON DIOXIDE LEVEL 28 MEQ/L (21-32); CHLORIDE LEVEL 106 MEQ/L (98-107); CREATININE FOR GFR 0.58 MG/DL (0.55-1.30); GLOMERULAR FILTRATION RATE > 60.0 (>60); GLUCOSE, FASTING 93 MG/DL (70-100); POTASSIUM SERUM 4.3 MEQ/L (3.5-5.1); SODIUM LEVEL 138 MEQ/L (136-145); TOTAL PROTEIN 7.8 GM/DL (6.4-8.2)
--- NOTE | 2020-12-20 16:52 | REP ---
INDICATION: RHEUMATOID ARTH W RHEUMATOID FACTOR,LABS 1ST. COMPARISON: None. Prior right wrist examination 08/17/2006 does not load on the read station. It cannot be accessed at this time. TECHNIQUE: Four views each wrist FINDINGS: Right wrist: There is subchondral cyst formation seen involving the distal radius with extreme radiocarpal joint space narrowing. Marginal erosions are seen involving the proximal pole the scaphoid, the trapezium, in the proximal articular surface of the 1st metacarpal. There is no evidence of an acute fracture. Left wrist: There is radiocarpal joint space narrowing and widening of the scapholunate interval. Marginal erosions are seen involving the articular surface of the proximal aspect of the 1st metacarpal and involving the trapezium with advanced degenerative changes seen involving the 1st metacarpophalangeal joint on this wrist series. IMPRESSION: Advanced degenerative changes seen bilaterally as described above. <Electronically signed by Matti Mcarthur > 12/20/20 [id number]
[2020-12-20 16:57] LABS: HEPATITIS B SURFACE ANTIBODY POSITIVE (POSITIVE)
--- NOTE | 2020-12-20 17:07 | REP ---
INDICATION: RHEUMATOID ARTH W RHEUMATOID FACTOR,LABS 1ST. COMPARISON: None. TECHNIQUE: Four views each foot FINDINGS: Left foot: There is significant joint space narrowing seen throughout the foot. Marginal erosions are seen involving the heads of the 2nd through 5th metatarsal tarsals. There multiple hammertoe deformities. Marginal erosions are seen involving the proximal aspect of the proximal phalanx of the 2nd digit. Right foot: Advanced marginal erosions are seen involving the heads of the 2nd through 4th metatarsals. Marginal erosions are also seen involving the bases of the proximal phalanges of the 2nd through the 5th digits. There is advanced asymmetric joint space narrowing throughout. There are multiple hammertoe deformities. IMPRESSION: Chronic bilateral erosive appearing degenerative changes as described above. <Electronically signed by Matti Mcarthur > 12/20/20 [id number]
[2020-12-20 17:09] LABS: HEPATITIS B SURFACE ANTIGEN NEGATIVE (NEGATIVE)
--- NOTE | 2020-12-20 17:11 | REP ---
INDICATION: RHEUMATOID ARTH W RHEUMATOID FACTOR,LABS 1ST. COMPARISON: None. TECHNIQUE: Four views each hand FINDINGS: Left hand: There is significant asymmetric intra digital joint space narrowing affecting all proximal interphalangeal joints and to a lesser degree the distal interphalangeal joints. Marginal erosions are seen involving both sides of all proximal interphalangeal joints and the 5th digital distal interphalangeal joint and the 2nd digital interphalangeal joint. Erosive degenerative changes seen involving the 5th distal interphalangeal joint there is evidence of a 5th digital boutonniere deformity. Right hand: Advanced asymmetric intra digital joint space narrowing is seen involving all proximal interphalangeal joints and to a lesser degree the distal interphalangeal joints of all digits with marginal erosions seen in on both sides of all and PIP joints. There are multiple digits in flexion and possibly developing into boutonniere deformities. IMPRESSION: Severe degenerative changes bilateral as described above. <Electronically signed by Matti Mcarthur > 12/20/20 [id number]
--- NOTE | 2020-12-20 17:14 | REP ---
INDICATION: RHEUMATOID ARTH W RHEUMATOID FACTOR,LABS 1ST COMPARISON: None TECHNIQUE: Multiple views each knee FINDINGS: There is tricompartmental narrowing bilaterally there is no acute fracture, dislocation, or subluxation bilaterally. The bones appear demineralized bilaterally. IMPRESSION: Chronic changes as described above. <Electronically signed by Matti Mcarthur > 12/20/20 [id number]
[2020-12-20 17:48] LABS: ERYTHROCYTE SEDIMENTATION RATE 63 mm/hr (0-20)
[2020-12-24 00:10] LABS: ANA (HEP2) Positive (.); CYCLIC CITRULLINATED PEPTIDE > 250 units (0-19); G6PD2 4.24 x10E6/uL (3.77-5.28); HEPATITIS B CORE ANTIBODY IGG Negative (Negative); SSA SJOGRENS A 0.4 AI (0.0-0.9); SSB SJOGRENS B <0.2 AI (0.0-0.9)
== END ==
LOC: M LAB 15:12
PROVIDERS: ATTEND Internal Medicine
DX: M05.9 Rheumatoid arthritis with rheumatoid factor, unspecified (principal)

== ENCOUNTER → 2021-04-15 | Outpatient (CLI) | payer OTHER ==
[~2021-04-15] MED LIST changes: -LISI2.5T2 GT; +LISI2.5T9 GT
[2021-04-15 15:49] LABS: BASO # 0.1 10^3/uL (0.0-0.2); BASO % 0.8 % (0.0-1.0); EOS # 0.1 10^3/uL (0.0-0.5); EOS % 1.7 % (0.0-3.0); HEMOGLOBIN 11.6 g/dl (12.0-15.5); LYMPH # 1.9 10^3/uL (1.5-5.0); LYMPH % 25.7 % (24.0-44.0); MEAN CORPUSCULAR HGB CONC 31.4 g/dl (32.0-36.5); MEAN CORPUSCULAR VOLUME 82.8 fl (80.0-96.0); MONO # 0.5 10^3/uL (0.0-0.8); MONO % 7.2 % (2.0-8.0); NEUTROPHILS # 4.6 10^3/uL (1.5-8.5); NEUTROPHILS % 63.5 % (36.0-66.0); PLATELET COUNT, AUTOMATED 410 10^3/uL (150-450); RED BLOOD COUNT 4.47 10^6/uL (4.00-5.40); WHITE BLOOD COUNT 7.3 10^3/uL (4.0-10.0)
[2021-04-15 16:14] LABS: ERYTHROCYTE SEDIMENTATION RATE 13 mm/hr (0-20)
[2021-04-15 16:19] LABS: ALBUMIN 3.2 GM/DL (3.2-5.2); ALT/SGPT 25 U/L (12-78); BILIRUBIN,DIRECT 0.1 MG/DL (0.0-0.2); BILIRUBIN,TOTAL 0.4 MG/DL (0.2-1.0); BLOOD UREA NITROGEN 13 MG/DL (7-18); C REACTIVE PROTEIN QUANTITATIV 0.51 MG/DL (0.00-0.30); CALCIUM LEVEL 8.3 MG/DL (8.5-10.1); CARBON DIOXIDE LEVEL 28 MEQ/L (21-32); CHLORIDE LEVEL 104 MEQ/L (98-107); CREATININE FOR GFR 0.61 MG/DL (0.55-1.30); GLOMERULAR FILTRATION RATE > 60.0 (>60); GLUCOSE, FASTING 303 MG/DL (70-100); POTASSIUM SERUM 4.2 MEQ/L (3.5-5.1); SODIUM LEVEL 135 MEQ/L (136-145); TOTAL PROTEIN 6.5 GM/DL (6.4-8.2)
[2021-04-16 13:45] LABS: PTH INTACT 49.1 PG/ML (18.5-88.0)
== END ==
LOC: M LAB 14:35
PROVIDERS: ATTEND Physician Assistant
DX: M05.9 Rheumatoid arthritis with rheumatoid factor, unspecified (principal); E83.51 Hypocalcemia

== ENCOUNTER → 2021-06-13 | Outpatient (CLI) | payer OTHER ==
[2021-06-13 18:24] LABS: BASO % 0.4 % (0.0-1.0); EOS # 0.1 10^3/uL (0.0-0.5); EOS % 0.6 % (0.0-3.0); HEMATOCRIT 35.2 % (36.0-47.0); HEMOGLOBIN 11.3 g/dl (12.0-15.5); LYMPH # 1.6 10^3/uL (1.5-5.0); LYMPH % 17.5 % (24.0-44.0); MEAN CORPUSCULAR HEMOGLOBIN 27.8 pg (27.0-33.0); MEAN CORPUSCULAR HGB CONC 32.1 g/dl (32.0-36.5); MEAN CORPUSCULAR VOLUME 86.5 fl (80.0-96.0); MONO # 0.5 10^3/uL (0.0-0.8); MONO % 5.8 % (2.0-8.0); PLATELET COUNT, AUTOMATED 403 10^3/uL (150-450); RED BLOOD COUNT 4.07 10^6/uL (4.00-5.40); WHITE BLOOD COUNT 9.3 10^3/uL (4.0-10.0)
[2021-06-13 19:01] LABS: ALBUMIN 3.6 GM/DL (3.2-5.2); ALT/SGPT 28 U/L (12-78); BILIRUBIN,DIRECT 0.2 MG/DL (0.0-0.2); BILIRUBIN,TOTAL 0.6 MG/DL (0.2-1.0); BLOOD UREA NITROGEN 10 MG/DL (7-18); CALCIUM LEVEL 8.8 MG/DL (8.5-10.1); CARBON DIOXIDE LEVEL 27 MEQ/L (21-32); CHLORIDE LEVEL 103 MEQ/L (98-107); GLOMERULAR FILTRATION RATE > 60.0 (>60); GLUCOSE, FASTING 201 MG/DL (70-100); POTASSIUM SERUM 4.2 MEQ/L (3.5-5.1); SODIUM LEVEL 137 MEQ/L (136-145); TOTAL PROTEIN 6.9 GM/DL (6.4-8.2)
[2021-06-13 19:32] LABS: ERYTHROCYTE SEDIMENTATION RATE 26 mm/hr (0-20)
== END ==
LOC: M LAB 17:03
PROVIDERS: ATTEND Internal Medicine
DX: M05.9 Rheumatoid arthritis with rheumatoid factor, unspecified (principal)

== ENCOUNTER 2021-07-18 08:31 | Outpatient (CLI) | payer OTHER ==
[~2021-07-18] VITALS: Ht 165.1 cm; Wt 69.0 kg
[~2021-07-18 08:31] MED LIST changes: +ALBUTEROL 90 MCG/ACT 8GM HFA INHALER INH PRN; +ALBUTEROL SULFATE 2.5 MG/0.5 ML INH NEB SOLN INH PRN; +EPINEPHrine INJ 1 MG/ML 1ML AMP IM PRN; +NS 1,000 ML IV SCH; +diphenhydrAMINE 50MG/ML VIAL (J1200) IV PRN; +methylPREDNISolone 125MG 2ML VIAL IV PRN
[2021-07-18 08:57] VITALS: BP 151/83
[2021-07-18] MEDS ORDERED: ACETAMINOPHEN TAB 650MG DOSE (2X325MG) PO ONE (09:00)
[2021-07-18] MEDS ORDERED: [UNRECOGNIZED DRUG - OTHER] IV ONE (09:00)
[2021-07-18 09:27] VITALS: BP 158/79
[2021-07-18 09:57] VITALS: BP 158/72
[2021-07-18 10:57] VITALS: BP 138/81
== END 2021-07-18 10:57 | disposition home or self-care (01) ==
LOC: M OPCLI4PR 08:31
PROVIDERS: ATTEND Physician Assistant
DX: U07.1 COVID-19 (principal)

== ENCOUNTER → 2021-08-12 | Outpatient (CLI) | payer OTHER ==
[~2021-08-12] MED LIST changes: -ALBUTEROL 90 MCG/ACT 8GM HFA INHALER INH PRN; -ALBUTEROL SULFATE 2.5 MG/0.5 ML INH NEB SOLN INH PRN; -EPINEPHrine INJ 1 MG/ML 1ML AMP IM PRN; -NS 1,000 ML IV SCH; -diphenhydrAMINE 50MG/ML VIAL (J1200) IV PRN; -methylPREDNISolone 125MG 2ML VIAL IV PRN
[2021-08-12 17:49] LABS: BASO % 0.4 % (0.0-1.0); EOS % 0.3 % (0.0-3.0); HEMATOCRIT 39.8 % (36.0-47.0); HEMOGLOBIN 12.8 g/dl (12.0-15.5); LYMPH # 1.3 10^3/uL (1.5-5.0); LYMPH % 13.7 % (24.0-44.0); MEAN CORPUSCULAR HEMOGLOBIN 27.9 pg (27.0-33.0); MEAN CORPUSCULAR HGB CONC 32.2 g/dl (32.0-36.5); MEAN CORPUSCULAR VOLUME 86.7 fl (80.0-96.0); MONO # 0.7 10^3/uL (0.0-0.8); MONO % 8.1 % (2.0-8.0); NEUTROPHILS # 7.1 10^3/uL (1.5-8.5); NEUTROPHILS % 77.1 % (36.0-66.0); PLATELET COUNT, AUTOMATED 375 10^3/uL (150-450); RED BLOOD COUNT 4.59 10^6/uL (4.00-5.40); WHITE BLOOD COUNT 9.2 10^3/uL (4.0-10.0)
[2021-08-12 18:08] LABS: ALBUMIN 3.7 GM/DL (3.2-5.2); ALT/SGPT 23 U/L (12-78); BILIRUBIN,DIRECT 0.1 MG/DL (0.0-0.2); BILIRUBIN,TOTAL 0.4 MG/DL (0.2-1.0); BLOOD UREA NITROGEN 12 MG/DL (7-18); C REACTIVE PROTEIN QUANTITATIV 0.31 MG/DL (0.00-0.30); CALCIUM LEVEL 8.7 MG/DL (8.5-10.1); CARBON DIOXIDE LEVEL 27 MEQ/L (21-32); CHLORIDE LEVEL 106 MEQ/L (98-107); GLOMERULAR FILTRATION RATE > 60.0 (>60); GLUCOSE, FASTING 130 MG/DL (70-100); POTASSIUM SERUM 4.3 MEQ/L (3.5-5.1); SODIUM LEVEL 139 MEQ/L (136-145); TOTAL PROTEIN 7.3 GM/DL (6.4-8.2)
[2021-08-12 18:45] LABS: ERYTHROCYTE SEDIMENTATION RATE 25 mm/hr (0-20)
== END ==
LOC: M LAB 17:01
PROVIDERS: ATTEND Internal Medicine
DX: M05.9 Rheumatoid arthritis with rheumatoid factor, unspecified (principal)

== ENCOUNTER → 2021-09-06 | Outpatient (CLI) | payer OTHER ==
[2021-09-06 11:30] LABS: BASO # 0.1 10^3/uL (0.0-0.2); BASO % 0.5 % (0.0-1.0); EOS % 0.3 % (0.0-3.0); HEMATOCRIT 42.8 % (36.0-47.0); HEMOGLOBIN 13.7 g/dl (12.0-15.5); LYMPH % 8.4 % (24.0-44.0); MEAN CORPUSCULAR HEMOGLOBIN 27.7 pg (27.0-33.0); MEAN CORPUSCULAR VOLUME 86.6 fl (80.0-96.0); MONO # 0.7 10^3/uL (0.0-0.8); MONO % 5.8 % (2.0-8.0); NEUTROPHILS # 10.2 10^3/uL (1.5-8.5); NEUTROPHILS % 84.4 % (36.0-66.0); PLATELET COUNT, AUTOMATED 440 10^3/uL (150-450); RED BLOOD COUNT 4.94 10^6/uL (4.00-5.40); WHITE BLOOD COUNT 12.1 10^3/uL (4.0-10.0)
[2021-09-06 11:54] LABS: ERYTHROCYTE SEDIMENTATION RATE 40 mm/hr (0-20)
[2021-09-06 11:58] LABS: ALBUMIN 3.8 GM/DL (3.2-5.2); ALT/SGPT 25 U/L (12-78); BILIRUBIN,DIRECT 0.1 MG/DL (0.0-0.2); BILIRUBIN,TOTAL 0.5 MG/DL (0.2-1.0); BLOOD UREA NITROGEN 11 MG/DL (7-18); C REACTIVE PROTEIN QUANTITATIV 1.11 MG/DL (0.00-0.30); CALCIUM LEVEL 8.7 MG/DL (8.5-10.1); CARBON DIOXIDE LEVEL 25 MEQ/L (21-32); CHLORIDE LEVEL 106 MEQ/L (98-107); CREATININE FOR GFR 0.64 MG/DL (0.55-1.30); GLOMERULAR FILTRATION RATE > 60.0 (>60); GLUCOSE, FASTING 151 MG/DL (70-100); POTASSIUM SERUM 4.1 MEQ/L (3.5-5.1); SODIUM LEVEL 139 MEQ/L (136-145); TOTAL PROTEIN 7.8 GM/DL (6.4-8.2)
== END ==
LOC: M LAB 09:25
PROVIDERS: ATTEND Internal Medicine
DX: M05.9 Rheumatoid arthritis with rheumatoid factor, unspecified (principal)

== ENCOUNTER → 2021-11-11 | Outpatient (CLI) | payer OTHER ==
[2021-11-11 18:33] LABS: BASO % 0.5 % (0.0-1.0); EOS % 0.2 % (0.0-3.0); HEMATOCRIT 40.3 % (36.0-47.0); HEMOGLOBIN 13.6 g/dl (12.0-15.5); LYMPH # 2.2 10^3/uL (1.5-5.0); LYMPH % 25.5 % (24.0-44.0); MEAN CORPUSCULAR HGB CONC 33.7 g/dl (32.0-36.5); MEAN CORPUSCULAR VOLUME 85.9 fl (80.0-96.0); MONO # 0.6 10^3/uL (0.0-0.8); MONO % 6.5 % (2.0-8.0); NEUTROPHILS # 5.8 10^3/uL (1.5-8.5); NEUTROPHILS % 66.7 % (36.0-66.0); PLATELET COUNT, AUTOMATED 458 10^3/uL (150-450); RED BLOOD COUNT 4.69 10^6/uL (4.00-5.40); WHITE BLOOD COUNT 8.6 10^3/uL (4.0-10.0)
[2021-11-11 18:53] LABS: ALBUMIN 3.7 GM/DL (3.2-5.2); ALT/SGPT 29 U/L (12-78); BILIRUBIN,DIRECT 0.2 MG/DL (0.0-0.2); BLOOD UREA NITROGEN 16 MG/DL (7-18); C REACTIVE PROTEIN QUANTITATIV 1.41 MG/DL (0.00-0.30); CARBON DIOXIDE LEVEL 27 MEQ/L (21-32); CHLORIDE LEVEL 106 MEQ/L (98-107); CREATININE FOR GFR 0.62 MG/DL (0.55-1.30); GLOMERULAR FILTRATION RATE > 60.0 (>60); GLUCOSE, FASTING 56 MG/DL (70-100); SODIUM LEVEL 138 MEQ/L (136-145)
[2021-11-11 18:56] LABS: ERYTHROCYTE SEDIMENTATION RATE 13 mm/hr (0-20)
== END ==
LOC: M LAB 16:52
PROVIDERS: ATTEND Internal Medicine
DX: M05.9 Rheumatoid arthritis with rheumatoid factor, unspecified (principal)

== ENCOUNTER 2021-12-02 15:27 | Outpatient (CLI) | payer MEDICAID, OTHER ==
[~2021-12-02] VITALS: Ht 165.1 cm; Wt 71.2 kg
[~2021-12-02 15:27] MED LIST changes: +ABATACEPT 750 MG OVER 30 MINUTES IV ONE; +ACETAMINOPHEN 650MG ER TAB (TYLENOL ARTHRITIS) PO ONE; +ALBUTEROL SULFATE 2.5 MG/0.5 ML INH NEB SOLN INH PRN; +EPINEPHrine INJ 1 MG/ML 1ML AMP IM PRN; +NS 1,000 ML IV SCH; +diphenhydrAMINE 50MG CAP PO ONE; +diphenhydrAMINE 50MG/ML VIAL (J1200) IV PRN; +methylPREDNISolone 125MG 2ML VIAL IV PRN
[2021-12-02 15:30] VITALS: BP 126/71
[2021-12-02 16:41] VITALS: BP 132/80
== END 2021-12-02 16:40 | disposition home or self-care (01) ==
LOC: M INFU 15:27
PROVIDERS: ATTEND Internal Medicine
DX: M05.9 Rheumatoid arthritis with rheumatoid factor, unspecified (principal)
CPT/HCPCS: 96365; J0129

== ENCOUNTER → 2021-12-13 | Outpatient (CLI) | payer OTHER ==
[~2021-12-13] MED LIST changes: -ABATACEPT 750 MG OVER 30 MINUTES IV ONE; -ACETAMINOPHEN 650MG ER TAB (TYLENOL ARTHRITIS) PO ONE; -ALBUTEROL SULFATE 2.5 MG/0.5 ML INH NEB SOLN INH PRN; -EPINEPHrine INJ 1 MG/ML 1ML AMP IM PRN; -NS 1,000 ML IV SCH; -diphenhydrAMINE 50MG CAP PO ONE; -diphenhydrAMINE 50MG/ML VIAL (J1200) IV PRN; -methylPREDNISolone 125MG 2ML VIAL IV PRN
[2021-12-13 12:48] LABS: ALBUMIN 3.5 GM/DL (3.2-5.2); ALT/SGPT 30 U/L (12-78); BILIRUBIN,TOTAL 0.5 MG/DL (0.2-1.0); BLOOD UREA NITROGEN 15 MG/DL (7-18); CALCIUM LEVEL 9.3 MG/DL (8.5-10.1); CARBON DIOXIDE LEVEL 25 MEQ/L (21-32); CHLORIDE LEVEL 107 MEQ/L (98-107); CHOLESTEROL LEVEL 220 MG/DL (<200); CHOLESTEROL RISK RATIO 3.055 (<5); GLOMERULAR FILTRATION RATE > 60.0 (>60); GLUCOSE, FASTING 131 MG/DL (70-100); HDL CHOLESTEROL 72 MG/DL (>40); LDL CHOLESTEROL 132 MG/DL (<100); NON-HDL-C 148 MG/DL; POTASSIUM SERUM 4.4 MEQ/L (3.5-5.1); SODIUM LEVEL 138 MEQ/L (136-145); TOTAL PROTEIN 7.4 GM/DL (6.4-8.2); TRIGLYCERIDES LEVEL 79 MG/DL (<150)
[2021-12-13 15:07] LABS: HEMOGLOBIN A1c 10.2 %
== END ==
LOC: M LAB 11:37
PROVIDERS: ATTEND Physician Assistant
DX: E10.40 Type 1 diabetes mellitus with diabetic neuropathy, unspecified (principal)

== ENCOUNTER → 2021-12-13 | Outpatient (CLI) | payer OTHER ==
[2021-12-13 12:22] LABS: BASO # 0.1 10^3/uL (0.0-0.2); BASO % 0.7 % (0.0-1.0); EOS % 0.1 % (0.0-3.0); HEMATOCRIT 40.2 % (36.0-47.0); HEMOGLOBIN 12.9 g/dl (12.0-15.5); LYMPH # 1.1 10^3/uL (1.5-5.0); LYMPH % 14.7 % (24.0-44.0); MEAN CORPUSCULAR HEMOGLOBIN 28.9 pg (27.0-33.0); MEAN CORPUSCULAR HGB CONC 32.1 g/dl (32.0-36.5); MEAN CORPUSCULAR VOLUME 90.1 fl (80.0-96.0); MONO # 0.6 10^3/uL (0.0-0.8); MONO % 7.3 % (2.0-8.0); NEUTROPHILS # 5.9 10^3/uL (1.5-8.5); NEUTROPHILS % 76.5 % (36.0-66.0); PLATELET COUNT, AUTOMATED 437 10^3/uL (150-450); RED BLOOD COUNT 4.46 10^6/uL (4.00-5.40); WHITE BLOOD COUNT 7.7 10^3/uL (4.0-10.0)
[2021-12-13 12:47] LABS: ALBUMIN 3.5 GM/DL (3.2-5.2); ALT/SGPT 33 U/L (12-78); BILIRUBIN,DIRECT 0.2 MG/DL (0.0-0.2); BILIRUBIN,TOTAL 0.7 MG/DL (0.2-1.0); BLOOD UREA NITROGEN 16 MG/DL (7-18); C REACTIVE PROTEIN QUANTITATIV 0.67 MG/DL (0.00-0.30); CALCIUM LEVEL 8.7 MG/DL (8.5-10.1); CARBON DIOXIDE LEVEL 27 MEQ/L (21-32); CHLORIDE LEVEL 106 MEQ/L (98-107); CREATININE FOR GFR 0.68 MG/DL (0.55-1.30); GLOMERULAR FILTRATION RATE > 60.0 (>60); GLUCOSE, FASTING 132 MG/DL (70-100); POTASSIUM SERUM 4.5 MEQ/L (3.5-5.1); SODIUM LEVEL 137 MEQ/L (136-145); TOTAL PROTEIN 6.8 GM/DL (6.4-8.2)
[2021-12-13 12:51] LABS: ERYTHROCYTE SEDIMENTATION RATE 20 mm/hr (0-20)
== END ==
LOC: M LAB 11:40
PROVIDERS: ATTEND Internal Medicine
DX: M05.9 Rheumatoid arthritis with rheumatoid factor, unspecified (principal)

== ENCOUNTER 2021-12-16 15:33 | Outpatient (CLI) | payer OTHER ==
[~2021-12-16] VITALS: Ht 165.1 cm; Wt 71.2 kg
[~2021-12-16 15:33] MED LIST changes: +ABATACEPT 750 MG OVER 30 MINUTES IV ONE; +ACETAMINOPHEN 650MG ER TAB (TYLENOL ARTHRITIS) PO ONE; +ALBUTEROL SULFATE 2.5 MG/0.5 ML INH NEB SOLN INH PRN; +EPINEPHrine INJ 1 MG/ML 1ML AMP IM PRN; +diphenhydrAMINE 50MG CAP PO ONE; +diphenhydrAMINE 50MG/ML VIAL (J1200) IV PRN; +methylPREDNISolone 125MG 2ML VIAL IV PRN
[2021-12-16 15:55] VITALS: BP 142/80
[2021-12-16 16:32] VITALS: BP 142/79
== END 2021-12-16 16:30 | disposition home or self-care (01) ==
LOC: M INFU 15:33
PROVIDERS: ATTEND Internal Medicine
DX: M05.9 Rheumatoid arthritis with rheumatoid factor, unspecified (principal)
CPT/HCPCS: 96365; J0129

== ENCOUNTER 2021-12-30 15:20 | Outpatient (CLI) | payer OTHER ==
[~2021-12-30] VITALS: Ht 165.1 cm; Wt 71.2 kg
[~2021-12-30 15:20] MED LIST changes: -ACETAMINOPHEN 650MG ER TAB (TYLENOL ARTHRITIS) PO ONE; +ACETAMINOPHEN TAB 650MG DOSE (2X325MG) PO ONE; +NS 1,000 ML IV SCH; +diphenhydrAMINE 25MG CAP PO ONE; -diphenhydrAMINE 50MG CAP PO ONE
[2021-12-30 15:53] VITALS: BP 138/82
[2021-12-30 16:36] VITALS: BP 120/81
== END 2021-12-30 16:35 | disposition home or self-care (01) ==
LOC: M INFU 15:20
PROVIDERS: ATTEND Internal Medicine
DX: M05.9 Rheumatoid arthritis with rheumatoid factor, unspecified (principal)
CPT/HCPCS: 96365; J0129

== ENCOUNTER → 2022-01-13 | Outpatient (CLI) | payer OTHER ==
[~2022-01-13] MED LIST changes: -ABATACEPT 750 MG OVER 30 MINUTES IV ONE; -ACETAMINOPHEN TAB 650MG DOSE (2X325MG) PO ONE; -ALBUTEROL SULFATE 2.5 MG/0.5 ML INH NEB SOLN INH PRN; -EPINEPHrine INJ 1 MG/ML 1ML AMP IM PRN; -NS 1,000 ML IV SCH; -diphenhydrAMINE 25MG CAP PO ONE; -diphenhydrAMINE 50MG/ML VIAL (J1200) IV PRN; -methylPREDNISolone 125MG 2ML VIAL IV PRN
[2022-01-13 17:41] LABS: BASO # 0.1 10^3/uL (0.0-0.2); BASO % 0.4 % (0.0-1.0); EOS % 0.3 % (0.0-3.0); HEMATOCRIT 39.2 % (36.0-47.0); HEMOGLOBIN 12.6 g/dl (12.0-15.5); LYMPH # 2.1 10^3/uL (1.5-5.0); LYMPH % 17.9 % (24.0-44.0); MEAN CORPUSCULAR HEMOGLOBIN 29.1 pg (27.0-33.0); MEAN CORPUSCULAR HGB CONC 32.1 g/dl (32.0-36.5); MEAN CORPUSCULAR VOLUME 90.5 fl (80.0-96.0); MONO # 0.8 10^3/uL (0.0-0.8); MONO % 6.7 % (2.0-8.0); NEUTROPHILS # 8.6 10^3/uL (1.5-8.5); NEUTROPHILS % 74.2 % (36.0-66.0); PLATELET COUNT, AUTOMATED 348 10^3/uL (150-450); RED BLOOD COUNT 4.33 10^6/uL (4.00-5.40); WHITE BLOOD COUNT 11.6 10^3/uL (4.0-10.0)
[2022-01-13 18:09] LABS: ALBUMIN 3.5 GM/DL (3.2-5.2); ALT/SGPT 27 U/L (12-78); BILIRUBIN,DIRECT 0.1 MG/DL (0.0-0.2); BILIRUBIN,TOTAL 0.4 MG/DL (0.2-1.0); BLOOD UREA NITROGEN 20 MG/DL (7-18); CALCIUM LEVEL 9.7 MG/DL (8.5-10.1); CARBON DIOXIDE LEVEL 27 MEQ/L (21-32); CHLORIDE LEVEL 104 MEQ/L (98-107); CREATININE FOR GFR 0.85 MG/DL (0.55-1.30); GLOMERULAR FILTRATION RATE > 60.0 (>60); GLUCOSE, FASTING 256 MG/DL (70-100); POTASSIUM SERUM 4.3 MEQ/L (3.5-5.1); SODIUM LEVEL 139 MEQ/L (136-145); TOTAL PROTEIN 6.7 GM/DL (6.4-8.2)
[2022-01-13 18:14] LABS: ERYTHROCYTE SEDIMENTATION RATE 13 mm/hr (0-20)
== END ==
LOC: M LAB 17:08
PROVIDERS: ATTEND Internal Medicine
DX: M05.9 Rheumatoid arthritis with rheumatoid factor, unspecified (principal)

== ENCOUNTER → 2022-02-09 | Outpatient (CLI) | payer OTHER ==
[2022-02-09 18:07] LABS: BASO # 0.1 10^3/uL (0.0-0.2); BASO % 0.5 % (0.0-1.0); EOS % 0.2 % (0.0-3.0); HEMATOCRIT 39.5 % (36.0-47.0); HEMOGLOBIN 12.8 g/dl (12.0-15.5); LYMPH # 1.9 10^3/uL (1.5-5.0); LYMPH % 19.8 % (24.0-44.0); MEAN CORPUSCULAR HGB CONC 32.4 g/dl (32.0-36.5); MEAN CORPUSCULAR VOLUME 89.6 fl (80.0-96.0); MONO # 0.7 10^3/uL (0.0-0.8); MONO % 6.8 % (2.0-8.0); NEUTROPHILS # 6.8 10^3/uL (1.5-8.5); PLATELET COUNT, AUTOMATED 439 10^3/uL (150-450); RED BLOOD COUNT 4.41 10^6/uL (4.00-5.40); WHITE BLOOD COUNT 9.5 10^3/uL (4.0-10.0)
[2022-02-09 18:29] LABS: ALBUMIN 3.5 GM/DL (3.2-5.2); ALT/SGPT 29 U/L (12-78); BILIRUBIN,DIRECT 0.2 MG/DL (0.0-0.2); BILIRUBIN,TOTAL 0.5 MG/DL (0.2-1.0); BLOOD UREA NITROGEN 13 MG/DL (7-18); C REACTIVE PROTEIN QUANTITATIV 1.99 MG/DL (0.00-0.30); CALCIUM LEVEL 9.3 MG/DL (8.5-10.1); CARBON DIOXIDE LEVEL 25 MEQ/L (21-32); CHLORIDE LEVEL 107 MEQ/L (98-107); CREATININE FOR GFR 0.63 MG/DL (0.55-1.30); GLOMERULAR FILTRATION RATE > 60.0 (>60); GLUCOSE, FASTING 95 MG/DL (70-100); POTASSIUM SERUM 4.2 MEQ/L (3.5-5.1); SODIUM LEVEL 139 MEQ/L (136-145)
[2022-02-09 19:03] LABS: ERYTHROCYTE SEDIMENTATION RATE 24 mm/hr (0-20)
== END ==
LOC: M LAB 17:25
PROVIDERS: ATTEND Internal Medicine
DX: M05.9 Rheumatoid arthritis with rheumatoid factor, unspecified (principal)

== ENCOUNTER 2022-02-24 15:05 | Outpatient (CLI) | payer OTHER ==
[~2022-02-24] VITALS: Ht 165.1 cm; Wt 71.2 kg
[~2022-02-24 15:05] MED LIST changes: +ABATACEPT 750 MG OVER 30 MINUTES IV ONE; +ACETAMINOPHEN 650MG ER TAB (TYLENOL ARTHRITIS) PO ONE; +ALBUTEROL SULFATE 2.5 MG/0.5 ML INH NEB SOLN INH PRN; +EPINEPHrine INJ 1 MG/ML 1ML AMP IM PRN; +NS 1,000 ML IV SCH; +diphenhydrAMINE 50MG CAP PO ONE; +diphenhydrAMINE 50MG/ML VIAL (J1200) IV PRN; +methylPREDNISolone 125MG 2ML VIAL IV PRN
[2022-02-24 15:23] VITALS: BP 160/84
[2022-02-24 16:12] VITALS: BP 131/82
== END 2022-02-24 16:20 | disposition home or self-care (01) ==
LOC: M INFU 15:05
PROVIDERS: ATTEND Internal Medicine
DX: M05.9 Rheumatoid arthritis with rheumatoid factor, unspecified (principal)
CPT/HCPCS: 96365; J0129

== ENCOUNTER → 2022-03-14 | Outpatient (CLI) | payer OTHER ==
[~2022-03-14] MED LIST changes: -ABATACEPT 750 MG OVER 30 MINUTES IV ONE; -ACETAMINOPHEN 650MG ER TAB (TYLENOL ARTHRITIS) PO ONE; -ALBUTEROL SULFATE 2.5 MG/0.5 ML INH NEB SOLN INH PRN; -EPINEPHrine INJ 1 MG/ML 1ML AMP IM PRN; -LABE100T4 PO; +LABE100T6 PO; -NS 1,000 ML IV SCH; -diphenhydrAMINE 50MG CAP PO ONE; -diphenhydrAMINE 50MG/ML VIAL (J1200) IV PRN; -methylPREDNISolone 125MG 2ML VIAL IV PRN
[2022-03-14 12:17] LABS: BASO # 0.1 10^3/uL (0.0-0.2); BASO % 1.1 % (0.0-1.0); EOS # 0.1 10^3/uL (0.0-0.5); EOS % 1.6 % (0.0-3.0); HEMATOCRIT 41.7 % (36.0-47.0); HEMOGLOBIN 13.3 g/dl (12.0-15.5); LYMPH # 2.3 10^3/uL (1.5-5.0); LYMPH % 25.5 % (24.0-44.0); MEAN CORPUSCULAR HEMOGLOBIN 28.3 pg (27.0-33.0); MEAN CORPUSCULAR HGB CONC 31.9 g/dl (32.0-36.5); MEAN CORPUSCULAR VOLUME 88.7 fl (80.0-96.0); MONO # 0.8 10^3/uL (0.0-0.8); MONO % 8.8 % (2.0-8.0); NEUTROPHILS # 5.5 10^3/uL (1.5-8.5); PLATELET COUNT, AUTOMATED 445 10^3/uL (150-450); WHITE BLOOD COUNT 8.9 10^3/uL (4.0-10.0)
[2022-03-14 12:51] LABS: ALBUMIN 3.3 GM/DL (3.2-5.2); ALT/SGPT 31 U/L (12-78); BILIRUBIN,DIRECT < 0.1 MG/DL (0.0-0.2); BILIRUBIN,TOTAL 0.4 MG/DL (0.2-1.0); BLOOD UREA NITROGEN 11 MG/DL (7-18); C REACTIVE PROTEIN QUANTITATIV 0.36 MG/DL (0.00-0.30); CALCIUM LEVEL 8.5 MG/DL (8.5-10.1); CARBON DIOXIDE LEVEL 23 MEQ/L (21-32); CHLORIDE LEVEL 111 MEQ/L (98-107); CREATININE FOR GFR 0.69 MG/DL (0.55-1.30); GLOMERULAR FILTRATION RATE > 60.0 (>60); GLUCOSE, FASTING 69 MG/DL (70-100); POTASSIUM SERUM 3.6 MEQ/L (3.5-5.1); SODIUM LEVEL 142 MEQ/L (136-145); TOTAL PROTEIN 6.9 GM/DL (6.4-8.2)
[2022-03-14 12:58] LABS: ERYTHROCYTE SEDIMENTATION RATE 15 mm/hr (0-20)
== END ==
LOC: M LAB 11:49
PROVIDERS: ATTEND Internal Medicine
DX: M05.9 Rheumatoid arthritis with rheumatoid factor, unspecified (principal)

== ENCOUNTER → 2022-03-14 | Outpatient (CLI) | payer OTHER ==
[2022-03-14 12:52] LABS: HEMOGLOBIN A1c 11.2 %
== END ==
LOC: M LAB 11:52
PROVIDERS: ATTEND Physician Assistant
DX: E10.40 Type 1 diabetes mellitus with diabetic neuropathy, unspecified (principal)

== ENCOUNTER 2022-03-24 15:15 | Outpatient (CLI) | payer OTHER ==
[~2022-03-24] VITALS: Ht 165.1 cm; Wt 71.2 kg
[~2022-03-24 15:15] MED LIST changes: +ABATACEPT 750 MG OVER 30 MINUTES IV ONE; +ACETAMINOPHEN 650MG ER TAB (TYLENOL ARTHRITIS) PO ONE; +ALBUTEROL SULFATE 2.5 MG/0.5 ML INH NEB SOLN INH PRN; +EPINEPHrine INJ 1 MG/ML 1ML AMP IM PRN; +NS 1,000 ML IV SCH; +diphenhydrAMINE 50MG CAP PO ONE; +diphenhydrAMINE 50MG/ML VIAL (J1200) IV PRN; +methylPREDNISolone 125MG 2ML VIAL IV PRN
[2022-03-24 16:15] VITALS: BP 153/77
== END 2022-03-24 16:15 | disposition home or self-care (01) ==
LOC: M INFU 15:15
PROVIDERS: ATTEND Internal Medicine
DX: M05.9 Rheumatoid arthritis with rheumatoid factor, unspecified (principal); Z88.8 Allergy status to other drugs, medicaments and biological substances
CPT/HCPCS: 96365; J0129

== ENCOUNTER → 2022-04-15 | Outpatient (CLI) | payer OTHER ==
[~2022-04-15] MED LIST changes: -ABATACEPT 750 MG OVER 30 MINUTES IV ONE; -ACETAMINOPHEN 650MG ER TAB (TYLENOL ARTHRITIS) PO ONE; -ALBUTEROL SULFATE 2.5 MG/0.5 ML INH NEB SOLN INH PRN; -EPINEPHrine INJ 1 MG/ML 1ML AMP IM PRN; -NS 1,000 ML IV SCH; -diphenhydrAMINE 50MG CAP PO ONE; -diphenhydrAMINE 50MG/ML VIAL (J1200) IV PRN; -methylPREDNISolone 125MG 2ML VIAL IV PRN
[2022-04-15 17:58] LABS: BASO # 0.1 10^3/uL (0.0-0.2); BASO % 0.7 % (0.0-1.0); EOS % 0.1 % (0.0-3.0); HEMATOCRIT 35.7 % (36.0-47.0); HEMOGLOBIN 11.2 g/dl (12.0-15.5); LYMPH # 1.1 10^3/uL (1.5-5.0); LYMPH % 14.8 % (24.0-44.0); MEAN CORPUSCULAR HEMOGLOBIN 28.2 pg (27.0-33.0); MEAN CORPUSCULAR HGB CONC 31.4 g/dl (32.0-36.5); MEAN CORPUSCULAR VOLUME 89.9 fl (80.0-96.0); MONO # 0.5 10^3/uL (0.0-0.8); MONO % 7.3 % (2.0-8.0); NEUTROPHILS # 5.6 10^3/uL (1.5-8.5); NEUTROPHILS % 76.4 % (36.0-66.0); PLATELET COUNT, AUTOMATED 443 10^3/uL (150-450); RED BLOOD COUNT 3.97 10^6/uL (4.00-5.40); WHITE BLOOD COUNT 7.3 10^3/uL (4.0-10.0)
[2022-04-15 18:25] LABS: BLOOD UREA NITROGEN 13 MG/DL (7-18); CALCIUM LEVEL 8.6 MG/DL (8.5-10.1); CARBON DIOXIDE LEVEL 26 MEQ/L (21-32); CHLORIDE LEVEL 109 MEQ/L (98-107); GLOMERULAR FILTRATION RATE > 60.0 (>60); GLUCOSE, FASTING 99 MG/DL (70-100); POTASSIUM SERUM 4.2 MEQ/L (3.5-5.1); SODIUM LEVEL 140 MEQ/L (136-145)
[2022-04-15 18:26] LABS: ALBUMIN 3.1 GM/DL (3.2-5.2); ALT/SGPT 36 U/L (12-78); BILIRUBIN,DIRECT < 0.1 MG/DL (0.0-0.2); BILIRUBIN,TOTAL 0.3 MG/DL (0.2-1.0); C REACTIVE PROTEIN QUANTITATIV 0.89 MG/DL (0.00-0.30); TOTAL PROTEIN 6.5 GM/DL (6.4-8.2)
[2022-04-15 18:50] LABS: ERYTHROCYTE SEDIMENTATION RATE 22 mm/hr (0-20)
== END ==
LOC: M LAB 17:08
PROVIDERS: ATTEND Internal Medicine
DX: M05.9 Rheumatoid arthritis with rheumatoid factor, unspecified (principal)

== ENCOUNTER 2022-04-21 15:30 | Outpatient (CLI) | payer MEDICAID, OTHER ==
[~2022-04-21] VITALS: Ht 165.1 cm; Wt 71.0 kg
[2022-04-21 15:30] VITALS: BP 153/94
[~2022-04-21 15:30] MED LIST changes: +ABATACEPT 750 MG OVER 30 MINUTES IV ONE; +ACETAMINOPHEN 650MG ER TAB (TYLENOL ARTHRITIS) PO ONE; +ALBUTEROL SULFATE 2.5 MG/0.5 ML INH NEB SOLN INH PRN; +EPINEPHrine INJ 1 MG/ML 1ML AMP IM PRN; +diphenhydrAMINE 50MG CAP PO ONE; +diphenhydrAMINE 50MG/ML VIAL (J1200) IV PRN; +methylPREDNISolone 125MG 2ML VIAL IV PRN
[2022-04-21 16:20] VITALS: BP 142/81
== END 2022-04-21 16:20 | disposition home or self-care (01) ==
LOC: M INFU 15:30
PROVIDERS: ATTEND Internal Medicine
DX: M05.9 Rheumatoid arthritis with rheumatoid factor, unspecified (principal); Z88.8 Allergy status to other drugs, medicaments and biological substances
CPT/HCPCS: 96365; J0129

== ENCOUNTER 2022-05-19 15:05 | Outpatient (CLI) | payer MEDICAID, OTHER ==
[~2022-05-19] VITALS: Ht 165.1 cm; Wt 74.0 kg
[~2022-05-19 15:05] MED LIST changes: +NS 1,000 ML IV SCH; +diphenhydrAMINE 25MG CAP PO ONE; -diphenhydrAMINE 50MG CAP PO ONE
[2022-05-19 15:15] VITALS: BP 122/82
[2022-05-19 16:21] VITALS: BP 129/79
== END 2022-05-19 16:15 | disposition home or self-care (01) ==
LOC: M INFU 15:05
PROVIDERS: ATTEND Internal Medicine
DX: M05.9 Rheumatoid arthritis with rheumatoid factor, unspecified (principal); Z88.8 Allergy status to other drugs, medicaments and biological substances
CPT/HCPCS: 96365; J0129

== ENCOUNTER → 2022-06-15 | Outpatient (CLI) | payer OTHER ==
[~2022-06-15] MED LIST changes: -ABATACEPT 750 MG OVER 30 MINUTES IV ONE; -ACETAMINOPHEN 650MG ER TAB (TYLENOL ARTHRITIS) PO ONE; -ALBUTEROL SULFATE 2.5 MG/0.5 ML INH NEB SOLN INH PRN; -EPINEPHrine INJ 1 MG/ML 1ML AMP IM PRN; -NS 1,000 ML IV SCH; -diphenhydrAMINE 25MG CAP PO ONE; -diphenhydrAMINE 50MG/ML VIAL (J1200) IV PRN; -methylPREDNISolone 125MG 2ML VIAL IV PRN
[2022-06-15 17:54] LABS: BASO % 0.5 % (0.0-1.0); HEMATOCRIT 37.8 % (36.0-47.0); HEMOGLOBIN 12.1 g/dl (12.0-15.5); LYMPH # 1.5 10^3/uL (1.5-5.0); LYMPH % 25.4 % (24.0-44.0); MEAN CORPUSCULAR HEMOGLOBIN 27.9 pg (27.0-33.0); MEAN CORPUSCULAR VOLUME 87.3 fl (80.0-96.0); MONO # 0.5 10^3/uL (0.0-0.8); MONO % 7.8 % (2.0-8.0); NEUTROPHILS # 3.9 10^3/uL (1.5-8.5); NEUTROPHILS % 65.5 % (36.0-66.0); PLATELET COUNT, AUTOMATED 418 10^3/uL (150-450); RED BLOOD COUNT 4.33 10^6/uL (4.00-5.40)
[2022-06-15 18:40] LABS: ERYTHROCYTE SEDIMENTATION RATE 16 mm/hr (0-20)
[2022-06-15 18:44] LABS: ALBUMIN 3.6 GM/DL (3.2-5.2); ALT/SGPT 30 U/L (12-78); BILIRUBIN,DIRECT 0.1 MG/DL (0.0-0.2); BILIRUBIN,TOTAL 0.4 MG/DL (0.2-1.0); BLOOD UREA NITROGEN 11 MG/DL (7-18); C REACTIVE PROTEIN QUANTITATIV 0.48 MG/DL (0.00-0.30); CALCIUM LEVEL 8.6 MG/DL (8.5-10.1); CARBON DIOXIDE LEVEL 28 MEQ/L (21-32); CHLORIDE LEVEL 106 MEQ/L (98-107); GLOMERULAR FILTRATION RATE > 60.0 (>60); GLUCOSE, FASTING 174 MG/DL (70-100); POTASSIUM SERUM 3.9 MEQ/L (3.5-5.1); SODIUM LEVEL 138 MEQ/L (136-145); TOTAL PROTEIN 6.7 GM/DL (6.4-8.2)
== END ==
LOC: M LAB 16:59
PROVIDERS: ATTEND Internal Medicine
DX: M06.9 Rheumatoid arthritis, unspecified (principal)

== ENCOUNTER 2022-06-16 15:15 | Outpatient (CLI) | payer OTHER ==
[~2022-06-16] VITALS: Ht 165.1 cm; Wt 74.0 kg
[~2022-06-16 15:15] MED LIST changes: +ALBUTEROL SULFATE 2.5 MG/0.5 ML INH NEB SOLN INH PRN; +EPINEPHrine INJ 1 MG/ML 1ML AMP IM PRN; +diphenhydrAMINE 50MG/ML VIAL (J1200) IV PRN; +methylPREDNISolone 125MG 2ML VIAL IV PRN
[2022-06-16] MEDS ORDERED: diphenhydrAMINE 50MG CAP PO ONE (15:30)
[2022-06-16] MEDS ORDERED: ACETAMINOPHEN 650MG ER TAB (TYLENOL ARTHRITIS) PO ONE (15:30)
[2022-06-16] MEDS ORDERED: ABATACEPT 750 MG OVER 30 MINUTES IV ONE ×2 (15:30)
[2022-06-16 15:50] VITALS: BP 153/81
[2022-06-16 16:45] VITALS: BP 151/87
== END 2022-06-16 16:45 | disposition home or self-care (01) ==
LOC: M INFU 15:15
PROVIDERS: ATTEND Internal Medicine
DX: M06.9 Rheumatoid arthritis, unspecified (principal); Z88.7 Allergy status to serum and vaccine
CPT/HCPCS: 96365; J0129

== ENCOUNTER → 2022-07-13 | Outpatient (CLI) | payer OTHER ==
[~2022-07-13] MED LIST changes: -ALBUTEROL SULFATE 2.5 MG/0.5 ML INH NEB SOLN INH PRN; -EPINEPHrine INJ 1 MG/ML 1ML AMP IM PRN; -diphenhydrAMINE 50MG/ML VIAL (J1200) IV PRN; -methylPREDNISolone 125MG 2ML VIAL IV PRN
[2022-07-13 17:38] LABS: BASO # 0.1 10^3/uL (0.0-0.2); BASO % 0.7 % (0.0-1.0); EOS % 0.2 % (0.0-3.0); HEMATOCRIT 40.6 % (36.0-47.0); LYMPH # 2.2 10^3/uL (1.5-5.0); LYMPH % 22.4 % (24.0-44.0); MEAN CORPUSCULAR VOLUME 87.3 fl (80.0-96.0); MONO # 0.7 10^3/uL (0.0-0.8); MONO % 7.1 % (2.0-8.0); NEUTROPHILS # 6.9 10^3/uL (1.5-8.5); PLATELET COUNT, AUTOMATED 475 10^3/uL (150-450); RED BLOOD COUNT 4.65 10^6/uL (4.00-5.40)
[2022-07-13 18:32] LABS: CHLORIDE LEVEL 102 MMOL/L (98-107); SODIUM LEVEL 141 MMOL/L (136-145)
[2022-07-13 18:33] LABS: ALBUMIN 3.9 G/DL (3.2-5.2); CARBON DIOXIDE LEVEL 25 MMOL/L (20-31); ERYTHROCYTE SEDIMENTATION RATE 19 mm/hr (0-20)
[2022-07-13 18:38] LABS: BLOOD UREA NITROGEN 16 MG/DL (9-23)
[2022-07-13 18:39] LABS: ALKALINE PHOSPHATASE 115 U/L (46-116); CALCIUM LEVEL 9.1 MG/DL (8.5-10.1); GLUCOSE, FASTING 62 MG/DL (60-100)
[2022-07-13 18:40] LABS: BILIRUBIN,TOTAL 0.5 MG/DL (0.3-1.2); TOTAL PROTEIN 7.2 G/DL (5.7-8.2)
[2022-07-13 18:41] LABS: ALT/SGPT 31 U/L (7.0-40); AST/SGOT 15 U/L (<34); BILIRUBIN,DIRECT 0.1 MG/DL (<0.4); CREATININE FOR GFR 0.52 MG/DL (0.55-1.30); GLOMERULAR FILTRATION RATE > 60.0 (>60)
== END ==
LOC: M LAB 16:19
PROVIDERS: ATTEND Internal Medicine
DX: M06.9 Rheumatoid arthritis, unspecified (principal)

== ENCOUNTER 2022-07-14 15:00 | Outpatient (CLI) | payer MEDICAID, OTHER ==
[~2022-07-14] VITALS: Ht 165.1 cm; Wt 73.9 kg
[2022-07-14 15:00] VITALS: BP 178/92
[~2022-07-14 15:00] MED LIST changes: +ABATACEPT 750 MG OVER 30 MINUTES IV ONE; +ACETAMINOPHEN 650MG ER TAB (TYLENOL ARTHRITIS) PO ONE; +ALBUTEROL SULFATE 2.5 MG/0.5 ML INH NEB SOLN INH PRN; +EPINEPHrine INJ 1 MG/ML 1ML AMP IM PRN; +NS 1,000 ML IV SCH; +diphenhydrAMINE 25MG CAP PO ONE; +diphenhydrAMINE 50MG/ML VIAL IV PRN; +methylPREDNISolone 125MG 2ML VIAL IV PRN
[2022-07-14 15:40] VITALS: BP 138/82
[2022-07-14 16:13] VITALS: BP 139/91
== END 2022-07-14 16:15 | disposition home or self-care (01) ==
LOC: M INFU 15:00
PROVIDERS: ATTEND Internal Medicine
DX: M05.9 Rheumatoid arthritis with rheumatoid factor, unspecified (principal); Z88.8 Allergy status to other drugs, medicaments and biological substances
CPT/HCPCS: 96365; J0129

== ENCOUNTER 2022-08-11 15:25 | Outpatient (CLI) | payer OTHER ==
[~2022-08-11] VITALS: Ht 165.1 cm; Wt 74.0 kg
[~2022-08-11 15:25] MED LIST changes: -ABATACEPT 750 MG OVER 30 MINUTES IV ONE; -ACETAMINOPHEN 650MG ER TAB (TYLENOL ARTHRITIS) PO ONE; -ALBUTEROL SULFATE 2.5 MG/0.5 ML INH NEB SOLN INH PRN; +ALBUTEROL SULFATE 2.5MG/0.5ML INH NEB SOLN INH PRN; -NS 1,000 ML IV SCH; -diphenhydrAMINE 25MG CAP PO ONE
[2022-08-11 15:27] VITALS: BP 136/85
[2022-08-11] MEDS ORDERED: diphenhydrAMINE 50MG CAP PO ONE (15:30)
[2022-08-11] MEDS ORDERED: ABATACEPT 750 MG OVER 30 MINUTES IV ONE ×2 (15:30)
[2022-08-11] MEDS ORDERED: ACETAMINOPHEN 650MG ER TAB (TYLENOL ARTHRITIS) PO ONE (15:30)
== END 2022-08-11 16:40 ==
LOC: M INFU 15:25
PROVIDERS: ATTEND Internal Medicine
DX: M05.9 Rheumatoid arthritis with rheumatoid factor, unspecified (principal); Z88.8 Allergy status to other drugs, medicaments and biological substances
CPT/HCPCS: 96365; J0129

== ENCOUNTER 2022-08-18 13:21 | Emergency (ER) | payer OTHER ==
[~2022-08-18] VITALS: Ht 165.1 cm; Wt 70.9 kg
[~2022-08-18 13:21] MED LIST changes: -ALBUTEROL SULFATE 2.5MG/0.5ML INH NEB SOLN INH PRN; -EPINEPHrine INJ 1 MG/ML 1ML AMP IM PRN; -diphenhydrAMINE 50MG/ML VIAL IV PRN; -methylPREDNISolone 125MG 2ML VIAL IV PRN
[2022-08-18] MEDS ORDERED: NS 1,000 ML IV ONE ×3 (14:55→18:20)
[2022-08-18 15:02] LABS: VENOUS BASE EXCESS -0.1 (-2.0-2.0); VENOUS HCO3 22.2 MEQ/L (23.0-27.0); VENOUS O2 SATURATION 86.2 % (60.0-80.0); VENOUS PARTIAL PRESSURE CO2 29.7 mmHg (38.0-50.0); VENOUS PH 7.491 UNITS (7.330-7.430); VENOUS STANDARD HCO3 24.1 MEQ/L; VENOUS TOTAL CO2 23.1 MEQ/L (24.0-28.0)
[2022-08-18] MEDS ORDERED: METOCLOPRAMIDE INJ 10MG/2ML VIAL IV ONE (15:05)
[2022-08-18 15:06] LABS: BASO % 0.1 % (0.0-1.0); EOS % 0.4 % (0.0-3.0); HEMATOCRIT 40.5 % (36.0-47.0); HEMOGLOBIN 12.7 g/dl (12.0-15.5); LYMPH # 0.5 10^3/uL (1.5-5.0); LYMPH % 6.5 % (24.0-44.0); MEAN CORPUSCULAR HGB CONC 31.4 g/dl (32.0-36.5); MEAN CORPUSCULAR VOLUME 89.2 fl (80.0-96.0); MONO # 0.3 10^3/uL (0.0-0.8); MONO % 4.1 % (2.0-8.0); NEUTROPHILS # 7.1 10^3/uL (1.5-8.5); NEUTROPHILS % 88.2 % (36.0-66.0); RED BLOOD COUNT 4.54 10^6/uL (4.00-5.40); WHITE BLOOD COUNT 8.1 10^3/uL (4.0-10.0)
[2022-08-18 15:06] LABS: RSV AMPLIFICATION NEGATIVE (NEGATIVE)
[2022-08-18 15:36] LABS: ACETONE/KETONE 1.3 MMOL/L (0.02-0.27); ALBUMIN 3.6 G/DL (3.2-5.2); BILIRUBIN,DIRECT 0.2 MG/DL (<0.4); BILIRUBIN,TOTAL 1.1 MG/DL (0.3-1.2); TOTAL PROTEIN 6.6 G/DL (5.7-8.2)
[2022-08-18 15:52] LABS: HEMOGLOBIN A1c 9.7 % (4.0-6.0)
[2022-08-18] MEDS ORDERED: LOPERAMIDE 2 MG CAPLET PO ONE (16:45)
[2022-08-18] MEDS ORDERED: LOPE1CAP5 PO (22:44)
[2022-08-18] MEDS ORDERED: ONDA4TAB6 PO (22:44)
[2022-08-18 22:45] VITALS: BP 163/80
== END 2022-08-18 23:19 | disposition home or self-care (01) ==
LOC: M ED 13:21 → EDBD 13:21 → M ED 23:19
DX: K52.9 Noninfective gastroenteritis and colitis, unspecified (principal); E86.0 Dehydration; E10.9 Type 1 diabetes mellitus without complications; Z91.09 Other allergy status, other than to drugs and biological substances; Z79.1 Long term (current) use of non-steroidal anti-inflammatories (NSAID)

== ENCOUNTER → 2022-09-01 | Outpatient (CLI) | payer OTHER ==
[~2022-09-01] MED LIST changes: +LOPE1CAP5 PO; +ONDA4TAB6 PO
[2022-09-01 14:51] LABS: BASO # 0.1 10^3/uL (0.0-0.2); EOS # 0.1 10^3/uL (0.0-0.5); HEMATOCRIT 40.5 % (36.0-47.0); HEMOGLOBIN 13.2 g/dl (12.0-15.5); LYMPH # 1.6 10^3/uL (1.5-5.0); MEAN CORPUSCULAR HGB CONC 32.6 g/dl (32.0-36.5); MONO # 0.5 10^3/uL (0.0-0.8); MONO % 7.6 % (2.0-8.0); NEUTROPHILS # 3.7 10^3/uL (1.5-8.5); NEUTROPHILS % 62.9 % (36.0-66.0); PLATELET COUNT, AUTOMATED 455 10^3/uL (150-450); RED BLOOD COUNT 4.71 10^6/uL (4.00-5.40); WHITE BLOOD COUNT 5.9 10^3/uL (4.0-10.0)
[2022-09-01 15:20] LABS: BILIRUBIN,DIRECT 0.1 MG/DL (<0.4)
[2022-09-01 15:24] LABS: ALBUMIN 3.7 G/DL (3.2-5.2); ALKALINE PHOSPHATASE 100 U/L (46-116); ALT/SGPT 23 U/L (7.0-40); AST/SGOT 28 U/L (<34); BILIRUBIN,TOTAL 0.6 MG/DL (0.3-1.2); BLOOD UREA NITROGEN 13 MG/DL (9-23); CALCIUM LEVEL 8.6 MG/DL (8.5-10.1); CARBON DIOXIDE LEVEL 23 MMOL/L (20-31); CHLORIDE LEVEL 103 MMOL/L (98-107); CREATININE FOR GFR 0.57 MG/DL (0.55-1.30); GLOMERULAR FILTRATION RATE > 60.0 (>60); GLUCOSE, FASTING 74 MG/DL (60-100); POTASSIUM SERUM 4.9 MMOL/L (3.5-5.1); SODIUM LEVEL 138 MMOL/L (136-145)
[2022-09-01 15:45] LABS: ERYTHROCYTE SEDIMENTATION RATE 32 mm/hr (0-20)
== END ==
LOC: M LAB 14:09
PROVIDERS: ATTEND Internal Medicine
DX: M05.9 Rheumatoid arthritis with rheumatoid factor, unspecified (principal)

== ENCOUNTER 2022-09-08 15:30 | Outpatient (CLI) | payer MEDICAID, OTHER ==
[~2022-09-08] VITALS: Ht 165.1 cm; Wt 74.0 kg
[~2022-09-08 15:30] MED LIST changes: +ABATACEPT 750 MG OVER 30 MINUTES IV ONE; +ACETAMINOPHEN 650MG ER TAB (TYLENOL ARTHRITIS) PO ONE; +ALBUTEROL SULFATE 2.5MG/0.5ML INH NEB SOLN INH PRN; +EPINEPHrine INJ 1 MG/ML 1ML AMP IM PRN; +diphenhydrAMINE 50MG CAP PO ONE; +diphenhydrAMINE 50MG/ML VIAL IV PRN; +methylPREDNISolone 125MG 2ML VIAL IV PRN
[2022-09-08 16:27] VITALS: BP 154/86
== END 2022-09-08 16:25 | disposition home or self-care (01) ==
LOC: M INFU 15:30
PROVIDERS: ATTEND Internal Medicine
DX: M05.9 Rheumatoid arthritis with rheumatoid factor, unspecified (principal); Z88.8 Allergy status to other drugs, medicaments and biological substances
CPT/HCPCS: 96365; J0129

== ENCOUNTER → 2022-10-05 | Outpatient (CLI) | payer OTHER ==
[~2022-10-05] MED LIST changes: -ABATACEPT 750 MG OVER 30 MINUTES IV ONE; -ACETAMINOPHEN 650MG ER TAB (TYLENOL ARTHRITIS) PO ONE; -ALBUTEROL SULFATE 2.5MG/0.5ML INH NEB SOLN INH PRN; -EPINEPHrine INJ 1 MG/ML 1ML AMP IM PRN; -diphenhydrAMINE 50MG CAP PO ONE; -diphenhydrAMINE 50MG/ML VIAL IV PRN; -methylPREDNISolone 125MG 2ML VIAL IV PRN
[2022-10-05 18:05] LABS: BASO # 0.1 10^3/uL (0.0-0.2); BASO % 0.7 % (0.0-1.0); EOS # 0.1 10^3/uL (0.0-0.5); EOS % 1.2 % (0.0-3.0); HEMATOCRIT 39.2 % (36.0-47.0); HEMOGLOBIN 12.6 g/dl (12.0-15.5); LYMPH % 30.1 % (24.0-44.0); MEAN CORPUSCULAR HEMOGLOBIN 28.5 pg (27.0-33.0); MEAN CORPUSCULAR HGB CONC 32.1 g/dl (32.0-36.5); MEAN CORPUSCULAR VOLUME 88.7 fl (80.0-96.0); MONO # 0.6 10^3/uL (0.0-0.8); MONO % 8.8 % (2.0-8.0); NEUTROPHILS % 58.8 % (36.0-66.0); PLATELET COUNT, AUTOMATED 449 10^3/uL (150-450); RED BLOOD COUNT 4.42 10^6/uL (4.00-5.40); WHITE BLOOD COUNT 6.7 10^3/uL (4.0-10.0)
[2022-10-05 18:14] LABS: ERYTHROCYTE SEDIMENTATION RATE 27 mm/hr (0-20)
[2022-10-05 18:20] LABS: C REACTIVE PROTEIN QUANTITATIV < 0.40 MG/DL (<1.0)
[2022-10-05 18:25] LABS: ALBUMIN 3.6 G/DL (3.2-5.2); ALKALINE PHOSPHATASE 113 U/L (46-116); ALT/SGPT 20 U/L (7.0-40); AST/SGOT 13 U/L (<34); BILIRUBIN,DIRECT 0.1 MG/DL (<0.4); BILIRUBIN,TOTAL 0.5 MG/DL (0.3-1.2); BLOOD UREA NITROGEN 9 MG/DL (9-23); CARBON DIOXIDE LEVEL 29 MMOL/L (20-31); CHLORIDE LEVEL 105 MMOL/L (98-107); CREATININE FOR GFR 0.54 MG/DL (0.55-1.30); GLOMERULAR FILTRATION RATE > 60.0 (>60); GLUCOSE, FASTING 65 MG/DL (60-100); SODIUM LEVEL 142 MMOL/L (136-145); TOTAL PROTEIN 6.6 G/DL (5.7-8.2)
== END ==
LOC: M LAB 17:01
PROVIDERS: ATTEND Internal Medicine
DX: M05.9 Rheumatoid arthritis with rheumatoid factor, unspecified (principal)

== ENCOUNTER 2022-10-06 15:35 | Outpatient (CLI) | payer OTHER ==
[~2022-10-06] VITALS: Ht 165.1 cm; Wt 74.0 kg
[~2022-10-06 15:35] MED LIST changes: +ABATACEPT 750 MG OVER 30 MINUTES IV ONE; +ACETAMINOPHEN 650MG ER TAB (TYLENOL ARTHRITIS) PO ONE; +ALBUTEROL SULFATE 2.5MG/0.5ML INH NEB SOLN INH PRN; +EPINEPHrine INJ 1 MG/ML 1ML AMP IM PRN; +diphenhydrAMINE 50MG CAP PO ONE; +diphenhydrAMINE 50MG/ML VIAL IV PRN; +methylPREDNISolone 125MG 2ML VIAL IV PRN
[2022-10-06 16:31] VITALS: BP 130/83
== END 2022-10-06 16:40 | disposition home or self-care (01) ==
LOC: M INFU 15:35
PROVIDERS: ATTEND Internal Medicine
DX: M05.9 Rheumatoid arthritis with rheumatoid factor, unspecified (principal); Z88.8 Allergy status to other drugs, medicaments and biological substances
CPT/HCPCS: 96365; J0129

== ENCOUNTER 2022-11-03 15:11 | Outpatient (CLI) | payer OTHER ==
[~2022-11-03] VITALS: Ht 165.1 cm; Wt 75.0 kg
[~2022-11-03 15:11] MED LIST changes: -ABATACEPT 750 MG OVER 30 MINUTES IV ONE; -diphenhydrAMINE 50MG CAP PO ONE
[2022-11-03 15:30] VITALS: BP 147/83
[2022-11-03] MEDS ORDERED: ABATACEPT 750 MG OVER 30 MINUTES IV ONE ×2 (15:30)
[2022-11-03] MEDS ORDERED: diphenhydrAMINE 50MG CAP PO ONE (15:30)
[2022-11-03 15:47] LABS: BASO # 0.1 10^3/uL (0.0-0.2); BASO % 0.5 % (0.0-1.0); EOS % 0.3 % (0.0-3.0); HEMATOCRIT 38.8 % (36.0-47.0); HEMOGLOBIN 12.5 g/dl (12.0-15.5); LYMPH # 2.2 10^3/uL (1.5-5.0); LYMPH % 22.7 % (24.0-44.0); MEAN CORPUSCULAR HEMOGLOBIN 28.6 pg (27.0-33.0); MEAN CORPUSCULAR HGB CONC 32.2 g/dl (32.0-36.5); MEAN CORPUSCULAR VOLUME 88.8 fl (80.0-96.0); MONO # 0.6 10^3/uL (0.0-0.8); MONO % 5.9 % (2.0-8.0); NEUTROPHILS # 6.7 10^3/uL (1.5-8.5); NEUTROPHILS % 70.2 % (36.0-66.0); PLATELET COUNT, AUTOMATED 434 10^3/uL (150-450); RED BLOOD COUNT 4.37 10^6/uL (4.00-5.40); WHITE BLOOD COUNT 9.5 10^3/uL (4.0-10.0)
[2022-11-03 15:55] LABS: ERYTHROCYTE SEDIMENTATION RATE 19 mm/hr (0-20)
[2022-11-03 16:17] LABS: ALBUMIN 3.9 G/DL (3.2-5.2); ALKALINE PHOSPHATASE 108 U/L (46-116); ALT/SGPT 20 U/L (7.0-40); AST/SGOT 13 U/L (<34); BILIRUBIN,DIRECT 0.2 MG/DL (<0.4); BILIRUBIN,TOTAL 0.5 MG/DL (0.3-1.2); BLOOD UREA NITROGEN 11 MG/DL (9-23); CARBON DIOXIDE LEVEL 29 MMOL/L (20-31); CHLORIDE LEVEL 106 MMOL/L (98-107); CREATININE FOR GFR 0.58 MG/DL (0.55-1.30); GLOMERULAR FILTRATION RATE > 60.0 (>60); GLUCOSE, FASTING 75 MG/DL (60-100); SODIUM LEVEL 141 MMOL/L (136-145); TOTAL PROTEIN 6.9 G/DL (5.7-8.2)
[2022-11-03 16:36] VITALS: BP 140/64
== END 2022-11-03 17:00 | disposition home or self-care (01) ==
LOC: M INFU 15:11
PROVIDERS: ATTEND Internal Medicine
DX: M05.9 Rheumatoid arthritis with rheumatoid factor, unspecified (principal); Z88.8 Allergy status to other drugs, medicaments and biological substances
CPT/HCPCS: 36415; 80048; 80076; 85025; 85652; 86140; 96365; J0129

== ENCOUNTER → 2022-11-30 | Outpatient (CLI) | payer OTHER, MEDICAID ==
[~2022-11-30] MED LIST changes: -ACETAMINOPHEN 650MG ER TAB (TYLENOL ARTHRITIS) PO ONE; -ALBUTEROL SULFATE 2.5MG/0.5ML INH NEB SOLN INH PRN; -EPINEPHrine INJ 1 MG/ML 1ML AMP IM PRN; -diphenhydrAMINE 50MG/ML VIAL IV PRN; -methylPREDNISolone 125MG 2ML VIAL IV PRN
[2022-11-30 17:45] LABS: BASO % 0.7 % (0.0-1.0); EOS % 0.5 % (0.0-3.0); HEMATOCRIT 38.6 % (36.0-47.0); HEMOGLOBIN 12.4 g/dl (12.0-15.5); LYMPH # 1.8 10^3/uL (1.5-5.0); LYMPH % 29.1 % (24.0-44.0); MEAN CORPUSCULAR HEMOGLOBIN 28.4 pg (27.0-33.0); MEAN CORPUSCULAR HGB CONC 32.1 g/dl (32.0-36.5); MEAN CORPUSCULAR VOLUME 88.5 fl (80.0-96.0); MONO # 0.5 10^3/uL (0.0-0.8); MONO % 7.7 % (2.0-8.0); NEUTROPHILS # 3.7 10^3/uL (1.5-8.5); NEUTROPHILS % 61.7 % (36.0-66.0); PLATELET COUNT, AUTOMATED 430 10^3/uL (150-450); RED BLOOD COUNT 4.36 10^6/uL (4.00-5.40)
[2022-11-30 17:59] LABS: ALBUMIN 3.5 G/DL (3.2-5.2); ALKALINE PHOSPHATASE 100 U/L (46-116); ALT/SGPT 17 U/L (7.0-40); AST/SGOT 15 U/L (<34); BILIRUBIN,DIRECT 0.2 MG/DL (<0.4); BILIRUBIN,TOTAL 0.5 MG/DL (0.3-1.2); BLOOD UREA NITROGEN 14 MG/DL (9-23); CALCIUM LEVEL 8.5 MG/DL (8.5-10.1); CARBON DIOXIDE LEVEL 28 MMOL/L (20-31); CHLORIDE LEVEL 105 MMOL/L (98-107); CREATININE FOR GFR 0.57 MG/DL (0.55-1.30); GLOMERULAR FILTRATION RATE > 60.0 (>60); GLUCOSE, FASTING 103 MG/DL (60-100); SODIUM LEVEL 140 MMOL/L (136-145); TOTAL PROTEIN 6.7 G/DL (5.7-8.2)
[2022-11-30 18:23] LABS: ERYTHROCYTE SEDIMENTATION RATE 44 mm/hr (0-20)
== END ==
LOC: M LAB 16:40
PROVIDERS: ATTEND Internal Medicine
DX: M05.9 Rheumatoid arthritis with rheumatoid factor, unspecified (principal)

== ENCOUNTER 2022-12-01 15:40 | Outpatient (CLI) | payer OTHER ==
[~2022-12-01] VITALS: Ht 165.1 cm; Wt 75.0 kg
[~2022-12-01 15:40] MED LIST changes: +ABATACEPT 750 MG OVER 30 MINUTES IV ONE; +ACETAMINOPHEN 650MG ER TAB (TYLENOL ARTHRITIS) PO ONE; +ALBUTEROL SULFATE 2.5MG/0.5ML INH NEB SOLN INH PRN; +EPINEPHrine INJ 1 MG/ML 1ML AMP IM PRN; +diphenhydrAMINE 50MG CAP PO ONE; +diphenhydrAMINE 50MG/ML VIAL IV PRN; +methylPREDNISolone 125MG 2ML VIAL IV PRN
[2022-12-01 16:30] VITALS: BP 126/72
== END 2022-12-01 16:31 | disposition home or self-care (01) ==
LOC: M INFU 15:40
PROVIDERS: ATTEND Internal Medicine
DX: M05.9 Rheumatoid arthritis with rheumatoid factor, unspecified (principal); Z88.8 Allergy status to other drugs, medicaments and biological substances
CPT/HCPCS: 96365; J0129

== ENCOUNTER 2022-12-29 15:10 | Outpatient (CLI) | payer OTHER ==
[~2022-12-29] VITALS: Ht 165.1 cm; Wt 75.0 kg
[~2022-12-29 15:10] MED LIST changes: -ABATACEPT 750 MG OVER 30 MINUTES IV ONE; -ACETAMINOPHEN 650MG ER TAB (TYLENOL ARTHRITIS) PO ONE; -diphenhydrAMINE 50MG CAP PO ONE
[2022-12-29] MEDS ORDERED: diphenhydrAMINE 25MG CAP PO ONE (15:30)
[2022-12-29] MEDS ORDERED: ACETAMINOPHEN TAB 650MG DOSE (2X325MG) PO ONE (15:30)
[2022-12-29] MEDS ORDERED: ABATACEPT 750 MG OVER 30 MINUTES IV ONE ×2 (15:30)
[2022-12-29 15:48] VITALS: BP 140/81
[2022-12-29 16:17] VITALS: BP 128/85
== END 2022-12-29 16:15 | disposition home or self-care (01) ==
LOC: M INFU 15:10
PROVIDERS: ATTEND Internal Medicine
DX: M05.9 Rheumatoid arthritis with rheumatoid factor, unspecified (principal); Z88.7 Allergy status to serum and vaccine
CPT/HCPCS: 96365; J0129

== ENCOUNTER → 2023-01-12 | Outpatient (CLI) | payer OTHER ==
[~2023-01-12] MED LIST changes: -ALBUTEROL SULFATE 2.5MG/0.5ML INH NEB SOLN INH PRN; -EPINEPHrine INJ 1 MG/ML 1ML AMP IM PRN; -diphenhydrAMINE 50MG/ML VIAL IV PRN; -methylPREDNISolone 125MG 2ML VIAL IV PRN
[2023-01-12 18:06] LABS: BASO # 0.1 10^3/uL (0.0-0.2); BASO % 0.7 % (0.0-1.0); EOS % 0.4 % (0.0-3.0); HEMATOCRIT 39.3 % (36.0-47.0); HEMOGLOBIN 12.9 g/dl (12.0-15.5); LYMPH # 2.7 10^3/uL (1.5-5.0); LYMPH % 29.8 % (24.0-44.0); MEAN CORPUSCULAR HEMOGLOBIN 28.3 pg (27.0-33.0); MEAN CORPUSCULAR HGB CONC 32.8 g/dl (32.0-36.5); MEAN CORPUSCULAR VOLUME 86.2 fl (80.0-96.0); MONO # 0.8 10^3/uL (0.0-0.8); MONO % 8.5 % (2.0-8.0); NEUTROPHILS # 5.5 10^3/uL (1.5-8.5); NEUTROPHILS % 60.3 % (36.0-66.0); PLATELET COUNT, AUTOMATED 401 10^3/uL (150-450); RED BLOOD COUNT 4.56 10^6/uL (4.00-5.40); WHITE BLOOD COUNT 9.2 10^3/uL (4.0-10.0)
[2023-01-12 18:22] LABS: ALBUMIN 3.9 G/DL (3.2-5.2); ALKALINE PHOSPHATASE 106 U/L (46-116); ALT/SGPT 25 U/L (7.0-40); AST/SGOT 24 U/L (<34); BILIRUBIN,DIRECT 0.1 MG/DL (<0.4); BILIRUBIN,TOTAL 0.5 MG/DL (0.3-1.2); BLOOD UREA NITROGEN 16 MG/DL (9-23); CARBON DIOXIDE LEVEL 24 MMOL/L (20-31); CHLORIDE LEVEL 107 MMOL/L (98-107); CREATININE FOR GFR 0.68 MG/DL (0.55-1.30); ERYTHROCYTE SEDIMENTATION RATE 46 mm/hr (0-20); GLOMERULAR FILTRATION RATE > 60.0 (>60); GLUCOSE, FASTING 52 MG/DL (60-100); POTASSIUM SERUM 4.5 MMOL/L (3.5-5.1); SODIUM LEVEL 141 MMOL/L (136-145); TOTAL PROTEIN 7.1 G/DL (5.7-8.2)
== END ==
LOC: M LAB 17:08
PROVIDERS: ATTEND Internal Medicine
DX: M05.9 Rheumatoid arthritis with rheumatoid factor, unspecified (principal)

== ENCOUNTER → 2023-01-12 | Outpatient (CLI) | payer OTHER ==
[2023-01-12 18:05] LABS: BASO # 0.1 10^3/uL (0.0-0.2); BASO % 0.9 % (0.0-1.0); EOS % 0.3 % (0.0-3.0); HEMATOCRIT 39.5 % (36.0-47.0); LYMPH # 2.7 10^3/uL (1.5-5.0); LYMPH % 29.9 % (24.0-44.0); MEAN CORPUSCULAR HEMOGLOBIN 28.6 pg (27.0-33.0); MEAN CORPUSCULAR HGB CONC 32.9 g/dl (32.0-36.5); MEAN CORPUSCULAR VOLUME 86.8 fl (80.0-96.0); MONO # 0.8 10^3/uL (0.0-0.8); MONO % 8.7 % (2.0-8.0); NEUTROPHILS # 5.4 10^3/uL (1.5-8.5); PLATELET COUNT, AUTOMATED 419 10^3/uL (150-450); RED BLOOD COUNT 4.55 10^6/uL (4.00-5.40)
[2023-01-12 18:20] LABS: BLOOD UREA NITROGEN 15 MG/DL (9-23); CREATININE FOR GFR 0.64 MG/DL (0.55-1.30); GLUCOSE, FASTING 52 MG/DL (60-100)
[2023-01-12 18:21] LABS: ALBUMIN 3.9 G/DL (3.2-5.2); ALKALINE PHOSPHATASE 108 U/L (46-116); ALT/SGPT 21 U/L (7.0-40); AST/SGOT 14 U/L (<34); BILIRUBIN,TOTAL 0.5 MG/DL (0.3-1.2); CALCIUM LEVEL 8.6 MG/DL (8.5-10.1); CARBON DIOXIDE LEVEL 24 MMOL/L (20-31); CHLORIDE LEVEL 108 MMOL/L (98-107); CHOLESTEROL LEVEL 198 MG/DL (<200); CHOLESTEROL RISK RATIO 3.55 (<5); GLOMERULAR FILTRATION RATE > 60.0 (>60); HDL CHOLESTEROL 55.7 MG/DL (>40); LDL CHOLESTEROL 129.1 MG/DL (<100); NON-HDL-C 142.3 MG/DL; POTASSIUM SERUM 4.2 MMOL/L (3.5-5.1); SODIUM LEVEL 142 MMOL/L (136-145); TOTAL PROTEIN 6.9 G/DL (5.7-8.2); TRIGLYCERIDES LEVEL 66 MG/DL (<150)
[2023-01-12 18:23] LABS: THYROID STIMULATING HORMONE 2.817 uIU/ML (0.55-4.78)
[2023-01-12 18:29] LABS: HEMOGLOBIN A1c 10.1 % (4.0-6.0)
== END ==
LOC: M LAB 17:06
PROVIDERS: ATTEND Physician Assistant
DX: E10.40 Type 1 diabetes mellitus with diabetic neuropathy, unspecified (principal)

== ENCOUNTER → 2023-01-26 | Outpatient (CLI) | payer OTHER ==
[~2023-01-26] VITALS: Ht 165.1 cm; Wt 75.6 kg
[~2023-01-26] MED LIST changes: +ABATACEPT 750 MG OVER 30 MINUTES IV ONE; +ACETAMINOPHEN 650MG ER TAB (TYLENOL ARTHRITIS) PO ONE; +ALBUTEROL SULFATE 2.5MG/0.5ML INH NEB SOLN INH PRN; +EPINEPHrine INJ 1 MG/ML 1ML AMP IM PRN; +diphenhydrAMINE 50MG CAP PO ONE; +diphenhydrAMINE 50MG/ML VIAL IV PRN; +methylPREDNISolone 125MG 2ML VIAL IV PRN
[2023-01-26 15:25] VITALS: BP 133/93; O2SAT 100
== END ==
LOC: M INFU 15:25
PROVIDERS: ATTEND Internal Medicine
DX: M05.9 Rheumatoid arthritis with rheumatoid factor, unspecified (principal); Z88.8 Allergy status to other drugs, medicaments and biological substances
CPT/HCPCS: 96365; J0129

== ENCOUNTER 2023-02-04 15:21 | Inpatient (IN) | payer OTHER ==
[~2023-02-04] VITALS: Ht 165.1 cm; Wt 80.7 kg
[~2023-02-04 15:21] MED LIST changes: -ABATACEPT 750 MG OVER 30 MINUTES IV ONE; -ACETAMINOPHEN 650MG ER TAB (TYLENOL ARTHRITIS) PO ONE; +ADMELOG SC SCH; -ALBUTEROL SULFATE 2.5MG/0.5ML INH NEB SOLN INH PRN; -EPINEPHrine INJ 1 MG/ML 1ML AMP IM PRN; -diphenhydrAMINE 50MG CAP PO ONE; -diphenhydrAMINE 50MG/ML VIAL IV PRN; -methylPREDNISolone 125MG 2ML VIAL IV PRN
[2023-02-04] MEDS ORDERED: ACETAMINOPHEN 500 MG TAB PO ONE (16:15)
[2023-02-04] MEDS ORDERED: ONDANSETRON 4MG ORAL DISINTEGRATING TAB PO ONE (16:15)
[2023-02-04 16:21] LABS: HEMATOCRIT 35.6 % (36.0-47.0); HEMOGLOBIN 11.6 g/dl (12.0-15.5); MEAN CORPUSCULAR HEMOGLOBIN 28.2 pg (27.0-33.0); MEAN CORPUSCULAR HGB CONC 32.6 g/dl (32.0-36.5); MEAN CORPUSCULAR VOLUME 86.4 fl (80.0-96.0); PLATELET COUNT, AUTOMATED 343 10^3/uL (150-450); RED BLOOD COUNT 4.12 10^6/uL (4.00-5.40); WHITE BLOOD COUNT 6.7 10^3/uL (4.0-10.0)
[2023-02-04 16:32] LABS: BLOOD UREA NITROGEN 20 MG/DL (9-23); CALCIUM LEVEL 8.9 MG/DL (8.5-10.1); CARBON DIOXIDE LEVEL 22 MMOL/L (20-31); CHLORIDE LEVEL 104 MMOL/L (98-107); CREATININE FOR GFR 0.54 MG/DL (0.55-1.30); GLOMERULAR FILTRATION RATE > 60.0 (>60); GLUCOSE, FASTING 274 MG/DL (60-100); POTASSIUM SERUM 4.1 MMOL/L (3.5-5.1); SODIUM LEVEL 136 MMOL/L (136-145)
[2023-02-04] MEDS ORDERED: METOCLOPRAMIDE INJ 10MG/2ML VIAL IV ONE (17:00)
[2023-02-04] MEDS ORDERED: fentaNYL 100 MCG/2 ML INJECTION IV ONE (17:00)
[2023-02-04] MEDS ORDERED: MED REC IN PROGRESS XX SCH (17:40)
[2023-02-04] MEDS ORDERED: DEXTROSE 50% 50ML SYRINGE IV PRN (18:30)
[2023-02-04] MEDS ORDERED: GLUCAGON INJ 1MG VIAL SC PRN (18:30)
[2023-02-04] MEDS: NS 1,000 ML IV SCH (18:40)
[2023-02-04] MEDS ORDERED: ADME100I (18:51)
[2023-02-04] MEDS ORDERED: ADME100I SC (18:51)
[2023-02-04] MEDS ORDERED: ALBU8.5H INH (18:57)
[2023-02-04] MEDS ORDERED: PRED5TA PO (19:00)
[2023-02-04] MEDS ORDERED: HOME MED LIST COMPLETE! XX SCH (19:10)
[2023-02-04 19:53] VITALS: BP 172/86; TEMP 97.4; O2SAT 100
[2023-02-04] MEDS ORDERED: LABETALOL 100MG/20ML VIAL IV PRN (20:15)
[2023-02-04 20:22] LABS: HEMOGLOBIN A1c 10.8 % (4.0-6.0)
[2023-02-04 20:28] VITALS: BP 172/86; TEMP 97.4; O2SAT 100
[2023-02-04 21:00] VITALS: O2SAT 99
[2023-02-04] MEDS: INSULIN LISPRO (NovoLOG) PER UNIT SC SCH (21:33)
[2023-02-04 22:00] VITALS: O2SAT 99
[2023-02-04 23:00] VITALS: O2SAT 100
[2023-02-04] MEDS: ACETAMINOPHEN TAB 650MG DOSE (2X325MG) PO SCH (23:24)
[2023-02-05] VITALS (12 sets, daily range): BP systolic 130–202; BP diastolic 63–98; TEMP 97.8–99; O2SAT 93–100
[2023-02-05] MEDS ORDERED: UNRESOLVED PATIENT OWN MED ORDER XX SCH (00:01)
[2023-02-05] MEDS: INSULIN LISPRO (NovoLOG) PER UNIT SC SCH ×7 (00:23→20:47)
[2023-02-05] MEDS: HYDROMORPHONE HCL 0.5 MG/ 0.5 ML SYRINGE IV PRN ×5 (03:34→20:41)
[2023-02-05] MEDS: ONDANSETRON 4MG 2ML VIAL IV PRN ×2 (03:37→09:34)
[2023-02-05 03:59] LABS: BASO % 0.4 % (0.0-1.0); EOS % 0.1 % (0.0-3.0); HEMOGLOBIN 10.7 g/dl (12.0-15.5); LYMPH # 1.1 10^3/uL (1.5-5.0); LYMPH % 13.6 % (24.0-44.0); MEAN CORPUSCULAR HEMOGLOBIN 28.1 pg (27.0-33.0); MEAN CORPUSCULAR HGB CONC 32.4 g/dl (32.0-36.5); MEAN CORPUSCULAR VOLUME 86.6 fl (80.0-96.0); MONO # 0.9 10^3/uL (0.0-0.8); MONO % 10.8 % (2.0-8.0); NEUTROPHILS # 6.1 10^3/uL (1.5-8.5); NEUTROPHILS % 74.6 % (36.0-66.0); PLATELET COUNT, AUTOMATED 289 10^3/uL (150-450); RED BLOOD COUNT 3.81 10^6/uL (4.00-5.40); WHITE BLOOD COUNT 8.2 10^3/uL (4.0-10.0)
[2023-02-05 04:33] LABS: BLOOD UREA NITROGEN 12 MG/DL (9-23); CALCIUM LEVEL 7.5 MG/DL (8.5-10.1); CARBON DIOXIDE LEVEL 16 MMOL/L (20-31); CHLORIDE LEVEL 107 MMOL/L (98-107); CREATININE FOR GFR 0.45 MG/DL (0.55-1.30); GLOMERULAR FILTRATION RATE > 60.0 (>60); GLUCOSE, FASTING 156 MG/DL (60-100); POTASSIUM SERUM 3.9 MMOL/L (3.5-5.1); SODIUM LEVEL 136 MMOL/L (136-145)
[2023-02-05] MEDS: ACETAMINOPHEN TAB 650MG DOSE (2X325MG) PO SCH ×3 (05:06→18:29)
[2023-02-05] MEDS: NS 1,000 ML IV SCH (05:06)
[2023-02-05] MEDS ORDERED: INSULIN PUMP (PATIENT'S OWN MED) SC SCH (09:00)
[2023-02-05] MEDS ORDERED: ALPRAZolam 0.25 MG TAB PO PRN (10:05)
[2023-02-05] MEDS ORDERED: ALBUTEROL 90 MCG/ACT 8GM HFA INHALER INH PRN (10:05)
[2023-02-05] MEDS ORDERED: INSULIN LISPRO (NovoLOG) PER UNIT SC SCH (11:10)
[2023-02-05] MEDS ORDERED: KETAMINE HCL 200MG/20ML VIAL As Ordered ONE (11:48)
[2023-02-05] MEDS ORDERED: MIDAZOLAM INJ 2MG/2ML VIAL As Ordered ONE (11:48)
[2023-02-05] MEDS ORDERED: fentaNYL 100 MCG/2 ML INJECTION As Ordered ONE (11:48)
[2023-02-05] MEDS ORDERED: propofoL 200 MG/20 ML VIAL As Ordered ONE (11:48)
[2023-02-05] MEDS ORDERED: LIDOCAINE 2% 100MG/5ML SDV (FOR ANES.) As Ordered ONE (11:49)
[2023-02-05] MEDS ORDERED: ceFAZolin 1GM VIAL As Ordered ONE (12:46)
[2023-02-05] MEDS ORDERED: HYDROCORTISONE 100MG/2ML VIAL IV ONE (13:00)
[2023-02-05] MEDS ORDERED: PHENYLephrine 500MCG 5ML (100MCG/ML) SYRINGE As Ordered ONE (13:14)
[2023-02-05] MEDS ORDERED: KETOROLAC 60MG 2ML VIAL As Ordered ONE (13:15)
[2023-02-05] MEDS ORDERED: fentaNYL 100 MCG/2 ML INJECTION IV PRN (13:35)
[2023-02-05] MEDS ORDERED: ONDANSETRON 4MG 2ML VIAL IV PRN (13:35)
[2023-02-05] MEDS ORDERED: HYDROMORPHONE HCL 0.5 MG/ 0.5 ML SYRINGE IV PRN (13:35)
[2023-02-05] MEDS ORDERED: LR 1,000 ML IV SCH (13:35)
[2023-02-05] MEDS ORDERED: oxyCODONE 5MG TAB PO PRN (13:35)
[2023-02-05] MEDS: HYDROCORTISONE 100MG/2ML VIAL IV SCH (16:26)
[2023-02-05] MEDS: ENOXAPARIN 40MG/0.4ML SYRINGE (J1650 PER 10MG) SC SCH (21:57)
[2023-02-06] VITALS (9 sets, daily range): BP systolic 118–151; BP diastolic 74–84; TEMP 97.7–99.6; O2SAT 97–100
[2023-02-06] MEDS: HYDROMORPHONE HCL 0.5 MG/ 0.5 ML SYRINGE IV PRN (00:20)
[2023-02-06] MEDS: HYDROCORTISONE 100MG/2ML VIAL IV SCH ×2 (00:20→08:48)
[2023-02-06] MEDS: ACETAMINOPHEN TAB 650MG DOSE (2X325MG) PO SCH ×5 (00:20→23:50)
[2023-02-06 05:33] LABS: BASO % 0.3 % (0.0-1.0); EOS % 0.1 % (0.0-3.0); HEMATOCRIT 28.5 % (36.0-47.0); HEMOGLOBIN 9.4 g/dl (12.0-15.5); LYMPH # 0.7 10^3/uL (1.5-5.0); LYMPH % 9.6 % (24.0-44.0); MEAN CORPUSCULAR HEMOGLOBIN 28.7 pg (27.0-33.0); MEAN CORPUSCULAR VOLUME 86.9 fl (80.0-96.0); MONO # 0.7 10^3/uL (0.0-0.8); MONO % 9.7 % (2.0-8.0); NEUTROPHILS # 6.1 10^3/uL (1.5-8.5); NEUTROPHILS % 79.9 % (36.0-66.0); PLATELET COUNT, AUTOMATED 279 10^3/uL (150-450); RED BLOOD COUNT 3.28 10^6/uL (4.00-5.40); WHITE BLOOD COUNT 7.6 10^3/uL (4.0-10.0)
[2023-02-06 05:56] LABS: BLOOD UREA NITROGEN 8 MG/DL (9-23); CARBON DIOXIDE LEVEL 18 MMOL/L (20-31); CHLORIDE LEVEL 108 MMOL/L (98-107); CREATININE FOR GFR 0.49 MG/DL (0.55-1.30); GLOMERULAR FILTRATION RATE > 60.0 (>60); GLUCOSE, FASTING 90 MG/DL (60-100); POTASSIUM SERUM 3.8 MMOL/L (3.5-5.1); SODIUM LEVEL 137 MMOL/L (136-145)
[2023-02-06] MEDS: INSULIN LISPRO (NovoLOG) PER UNIT SC SCH ×4 (07:30→21:00)
[2023-02-06] MEDS: ONDANSETRON 4MG 2ML VIAL IV PRN (08:47)
[2023-02-06] MEDS: PERCOCET 5MG/325MG TAB PO PRN ×2 (08:47→17:54)
[2023-02-06] MEDS: ENOXAPARIN 40MG/0.4ML SYRINGE (J1650 PER 10MG) SC SCH (08:48)
[2023-02-06] MEDS: PRENATAL VITAMINS CHEWABLE TABLET PO SCH (08:48)
[2023-02-06] MEDS: FAMOTIDINE 20 MG TAB PO SCH (08:48)
[2023-02-06] MEDS ORDERED: OXYC1TAB23 PO (08:57)
[2023-02-06] MEDS ORDERED: predniSONE 5 MG TAB PO SCH (09:00)
[2023-02-07] MEDS: PERCOCET 5MG/325MG TAB PO PRN ×3 (01:08→21:11)
[2023-02-07] MEDS: ACETAMINOPHEN TAB 650MG DOSE (2X325MG) PO SCH ×3 (05:22→18:32)
[2023-02-07 05:55] VITALS: BP 132/84; TEMP 97.2; O2SAT 99
[2023-02-07] MEDS: INSULIN LISPRO (NovoLOG) PER UNIT SC SCH ×6 (07:11→21:00)
[2023-02-07 07:14] LABS: BASO % 0.6 % (0.0-1.0); EOS # 0.2 10^3/uL (0.0-0.5); EOS % 2.4 % (0.0-3.0); HEMATOCRIT 28.5 % (36.0-47.0); HEMOGLOBIN 9.2 g/dl (12.0-15.5); LYMPH # 1.5 10^3/uL (1.5-5.0); LYMPH % 20.9 % (24.0-44.0); MEAN CORPUSCULAR HEMOGLOBIN 28.2 pg (27.0-33.0); MEAN CORPUSCULAR HGB CONC 32.3 g/dl (32.0-36.5); MEAN CORPUSCULAR VOLUME 87.4 fl (80.0-96.0); MONO # 0.7 10^3/uL (0.0-0.8); MONO % 10.2 % (2.0-8.0); NEUTROPHILS # 4.7 10^3/uL (1.5-8.5); NEUTROPHILS % 65.5 % (36.0-66.0); PLATELET COUNT, AUTOMATED 312 10^3/uL (150-450); RED BLOOD COUNT 3.26 10^6/uL (4.00-5.40); WHITE BLOOD COUNT 7.2 10^3/uL (4.0-10.0)
[2023-02-07 07:37] LABS: BLOOD UREA NITROGEN 10 MG/DL (9-23); CALCIUM LEVEL 8.5 MG/DL (8.5-10.1); CARBON DIOXIDE LEVEL 22 MMOL/L (20-31); CHLORIDE LEVEL 108 MMOL/L (98-107); CREATININE FOR GFR 0.59 MG/DL (0.55-1.30); GLOMERULAR FILTRATION RATE > 60.0 (>60); GLUCOSE, FASTING 59 MG/DL (60-100); POTASSIUM SERUM 3.5 MMOL/L (3.5-5.1); SODIUM LEVEL 140 MMOL/L (136-145)
[2023-02-07] MEDS: PRENATAL VITAMINS CHEWABLE TABLET PO SCH (08:53)
[2023-02-07] MEDS: ONDANSETRON 4MG 2ML VIAL IV PRN (08:53)
[2023-02-07] MEDS: FAMOTIDINE 20 MG TAB PO SCH (08:53)
[2023-02-07] MEDS: ENOXAPARIN 40MG/0.4ML SYRINGE (J1650 PER 10MG) SC SCH (08:54)
[2023-02-07] MEDS: predniSONE 5 MG TAB PO SCH (08:54)
[2023-02-07 13:43] VITALS: BP 135/81; TEMP 100.1; O2SAT 98
[2023-02-07 19:30] VITALS: BP 136/74; TEMP 98.1; O2SAT 99
[2023-02-08] MEDS: ACETAMINOPHEN TAB 650MG DOSE (2X325MG) PO SCH ×4 (00:15→17:29)
[2023-02-08 02:01] LABS: APPEARANCE, URINE CLOUDY (CLEAR); BACTERIA, URINE AUTO NEGATIVE (NEGATIVE); BILIRUBIN, URINE AUTO NEGATIVE (NEGATIVE); BLOOD, URINE BLOOD NEGATIVE (NEGATIVE); COLOR, URINE YELLOW (YELLOW); GLUCOSE, URINE (UA) AUTO 3+ mg/dL (NEGATIVE); KETONE, URINE AUTO 2+ mg/dL (NEGATIVE); LEUKOCYTE ESTERASE, URINE AUTO 3+ (NEGATIVE); NITRITE, URINE AUTO NEGATIVE (NEGATIVE); PROTEIN, URINE AUTO 2+ mg/dL (NEGATIVE); RBC, URINE AUTO 0 /HPF (0-3); SPECIFIC GRAVITY URINE AUTO 1.027 (1.002-1.035); SQUAMOUS EPITHELIAL CELL UR AU 51 /HPF (0-6); UROBILINOGEN, URINE AUTO 0.2 mg/dL (0.0-2.0); WBC, URINE AUTO 20 /HPF (0-3)
[2023-02-08 05:21] VITALS: BP 134/82; TEMP 97.5; O2SAT 99
[2023-02-08] MEDS: GLUCOSE 4GM CHEW TABLET PO PRN (05:33)
[2023-02-08 06:27] LABS: BASO # 0.1 10^3/uL (0.0-0.2); BASO % 0.7 % (0.0-1.0); EOS # 0.3 10^3/uL (0.0-0.5); EOS % 2.9 % (0.0-3.0); HEMATOCRIT 29.4 % (36.0-47.0); HEMOGLOBIN 9.4 g/dl (12.0-15.5); LYMPH # 2.5 10^3/uL (1.5-5.0); LYMPH % 28.9 % (24.0-44.0); MEAN CORPUSCULAR HEMOGLOBIN 27.9 pg (27.0-33.0); MEAN CORPUSCULAR VOLUME 87.2 fl (80.0-96.0); MONO % 11.1 % (2.0-8.0); NEUTROPHILS # 4.8 10^3/uL (1.5-8.5); NEUTROPHILS % 55.8 % (36.0-66.0); RED BLOOD COUNT 3.37 10^6/uL (4.00-5.40); WHITE BLOOD COUNT 8.6 10^3/uL (4.0-10.0)
[2023-02-08 07:07] LABS: BLOOD UREA NITROGEN 13 MG/DL (9-23); CALCIUM LEVEL 8.4 MG/DL (8.5-10.1); CARBON DIOXIDE LEVEL 20 MMOL/L (20-31); CHLORIDE LEVEL 108 MMOL/L (98-107); CREATININE FOR GFR 0.56 MG/DL (0.55-1.30); GLOMERULAR FILTRATION RATE > 60.0 (>60); GLUCOSE, FASTING 37 MG/DL (60-100); POTASSIUM SERUM 3.5 MMOL/L (3.5-5.1); SODIUM LEVEL 140 MMOL/L (136-145)
[2023-02-08 07:14] LABS: PLATELET COUNT, AUTOMATED 424 10^3/uL (150-450)
[2023-02-08] MEDS: INSULIN LISPRO (NovoLOG) PER UNIT SC SCH ×4 (07:30→20:04)
[2023-02-08] MEDS ORDERED: FLUCONAZOLE 50MG TABLET PO ONE (08:00)
[2023-02-08] MEDS: PRENATAL VITAMINS CHEWABLE TABLET PO SCH (09:11)
[2023-02-08] MEDS: FAMOTIDINE 20 MG TAB PO SCH (09:12)
[2023-02-08] MEDS: predniSONE 5 MG TAB PO SCH (09:12)
[2023-02-08] MEDS: ONDANSETRON 4MG ORAL DISINTEGRATING TAB PO PRN (09:12)
[2023-02-08] MEDS: ENOXAPARIN 40MG/0.4ML SYRINGE (J1650 PER 10MG) SC SCH (09:12)
[2023-02-08] MEDS: PERCOCET 5MG/325MG TAB PO PRN ×3 (09:13→21:38)
[2023-02-08] MEDS: LevoFLOXacin 750 MG TABLET PO SCH (10:33)
[2023-02-08 14:00] VITALS: BP 143/83; TEMP 97.8; O2SAT 97
[2023-02-08] MEDS ORDERED: LevoFLOXacin 750 MG TABLET PO SCH (18:00)
[2023-02-08 20:04] VITALS: BP 138/94; TEMP 96.6; O2SAT 98
[2023-02-08] MEDS ORDERED: CYCLOBENZAPRINE 5MG TABLET PO ONE (22:00)
[2023-02-09] MEDS: LevoFLOXacin 750 MG TABLET PO SCH (04:29)
[2023-02-09] MEDS: ACETAMINOPHEN TAB 650MG DOSE (2X325MG) PO SCH ×5 (04:30→23:32)
[2023-02-09 05:59] VITALS: BP 147/85; TEMP 98.1; O2SAT 96
[2023-02-09 06:03] LABS: BASO % 0.6 % (0.0-1.0); EOS # 0.1 10^3/uL (0.0-0.5); EOS % 2.2 % (0.0-3.0); HEMATOCRIT 27.2 % (36.0-47.0); HEMOGLOBIN 8.8 g/dl (12.0-15.5); LYMPH # 1.5 10^3/uL (1.5-5.0); LYMPH % 30.5 % (24.0-44.0); MEAN CORPUSCULAR HEMOGLOBIN 28.3 pg (27.0-33.0); MEAN CORPUSCULAR HGB CONC 32.4 g/dl (32.0-36.5); MEAN CORPUSCULAR VOLUME 87.5 fl (80.0-96.0); MONO # 0.5 10^3/uL (0.0-0.8); MONO % 10.7 % (2.0-8.0); NEUTROPHILS # 2.8 10^3/uL (1.5-8.5); NEUTROPHILS % 55.6 % (36.0-66.0); PLATELET COUNT, AUTOMATED 360 10^3/uL (150-450); RED BLOOD COUNT 3.11 10^6/uL (4.00-5.40); WHITE BLOOD COUNT 5.1 10^3/uL (4.0-10.0)
[2023-02-09 06:25] LABS: BLOOD UREA NITROGEN 11 MG/DL (9-23); CARBON DIOXIDE LEVEL 25 MMOL/L (20-31); CHLORIDE LEVEL 107 MMOL/L (98-107); CREATININE FOR GFR 0.53 MG/DL (0.55-1.30); GLOMERULAR FILTRATION RATE > 60.0 (>60); GLUCOSE, FASTING 78 MG/DL (60-100); POTASSIUM SERUM 3.5 MMOL/L (3.5-5.1); SODIUM LEVEL 140 MMOL/L (136-145)
[2023-02-09] MEDS: INSULIN LISPRO (NovoLOG) PER UNIT SC SCH ×4 (07:30→21:00)
[2023-02-09] MEDS: ENOXAPARIN 40MG/0.4ML SYRINGE (J1650 PER 10MG) SC SCH (08:08)
[2023-02-09] MEDS: predniSONE 5 MG TAB PO SCH (08:09)
[2023-02-09] MEDS: FAMOTIDINE 20 MG TAB PO SCH (08:09)
[2023-02-09] MEDS: PRENATAL VITAMINS CHEWABLE TABLET PO SCH (08:09)
[2023-02-09] MEDS: ONDANSETRON 4MG ORAL DISINTEGRATING TAB PO PRN (08:54)
[2023-02-09] MEDS ORDERED: SENNA 8.6 MG TAB (SENOKOT) PO PRN (09:45)
[2023-02-09] MEDS ORDERED: MIRALAX *UNIT DOSE* 17GM PACKET PO PRN (09:45)
[2023-02-09] MEDS ORDERED: MOM 30ML SUSPENSION UDC PO ONE (09:45)
[2023-02-09] MEDS: PERCOCET 5MG/325MG TAB PO PRN ×2 (09:57→20:36)
[2023-02-09] MEDS ORDERED: CYCLOBENZAPRINE 5MG TABLET PO ONE (14:15)
[2023-02-09 14:30] VITALS: BP 133/84; TEMP 98.3; O2SAT 97
[2023-02-09] MEDS: GLUCOSE 4GM CHEW TABLET PO PRN (16:30)
[2023-02-10] MEDS: LevoFLOXacin 750 MG TABLET PO SCH (06:09)
[2023-02-10] MEDS: ACETAMINOPHEN TAB 650MG DOSE (2X325MG) PO SCH ×4 (06:09→23:31)
[2023-02-10 06:11] LABS: BASO % 0.8 % (0.0-1.0); EOS # 0.1 10^3/uL (0.0-0.5); EOS % 2.4 % (0.0-3.0); HEMATOCRIT 26.7 % (36.0-47.0); HEMOGLOBIN 8.6 g/dl (12.0-15.5); LYMPH # 1.7 10^3/uL (1.5-5.0); LYMPH % 34.2 % (24.0-44.0); MEAN CORPUSCULAR HEMOGLOBIN 28.1 pg (27.0-33.0); MEAN CORPUSCULAR HGB CONC 32.2 g/dl (32.0-36.5); MEAN CORPUSCULAR VOLUME 87.3 fl (80.0-96.0); MONO # 0.5 10^3/uL (0.0-0.8); MONO % 9.7 % (2.0-8.0); NEUTROPHILS # 2.6 10^3/uL (1.5-8.5); NEUTROPHILS % 52.5 % (36.0-66.0); PLATELET COUNT, AUTOMATED 385 10^3/uL (150-450); RED BLOOD COUNT 3.06 10^6/uL (4.00-5.40)
[2023-02-10 06:12] LABS: BLOOD UREA NITROGEN 11 MG/DL (9-23); CALCIUM LEVEL 8.7 MG/DL (8.5-10.1); CARBON DIOXIDE LEVEL 26 MMOL/L (20-31); CHLORIDE LEVEL 107 MMOL/L (98-107); CREATININE FOR GFR 0.56 MG/DL (0.55-1.30); GLOMERULAR FILTRATION RATE > 60.0 (>60); GLUCOSE, FASTING 90 MG/DL (60-100); POTASSIUM SERUM 3.5 MMOL/L (3.5-5.1); SODIUM LEVEL 141 MMOL/L (136-145)
[2023-02-10 06:54] VITALS: BP 128/77; TEMP 98; O2SAT 96
[2023-02-10] MEDS: INSULIN LISPRO (NovoLOG) PER UNIT SC SCH ×4 (07:30→21:00)
[2023-02-10] MEDS: ENOXAPARIN 40MG/0.4ML SYRINGE (J1650 PER 10MG) SC SCH (08:01)
[2023-02-10] MEDS: ONDANSETRON 4MG ORAL DISINTEGRATING TAB PO PRN (08:01)
[2023-02-10] MEDS: FAMOTIDINE 20 MG TAB PO SCH (08:01)
[2023-02-10] MEDS: PRENATAL VITAMINS CHEWABLE TABLET PO SCH (08:01)
[2023-02-10] MEDS: predniSONE 5 MG TAB PO SCH (08:01)
[2023-02-10] MEDS: PERCOCET 5MG/325MG TAB PO PRN ×3 (09:47→21:46)
[2023-02-10] MEDS: CYCLOBENZAPRINE 5MG TABLET PO PRN (13:44)
[2023-02-11] MEDS: LevoFLOXacin 750 MG TABLET PO SCH (06:03)
[2023-02-11] MEDS: ACETAMINOPHEN TAB 650MG DOSE (2X325MG) PO SCH ×2 (06:03→12:41)
[2023-02-11 06:07] LABS: BASO % 0.8 % (0.0-1.0); EOS # 0.1 10^3/uL (0.0-0.5); EOS % 2.9 % (0.0-3.0); HEMATOCRIT 28.1 % (36.0-47.0); HEMOGLOBIN 8.7 g/dl (12.0-15.5); LYMPH # 1.7 10^3/uL (1.5-5.0); LYMPH % 34.8 % (24.0-44.0); MEAN CORPUSCULAR HEMOGLOBIN 27.6 pg (27.0-33.0); MEAN CORPUSCULAR VOLUME 89.2 fl (80.0-96.0); MONO # 0.4 10^3/uL (0.0-0.8); MONO % 8.2 % (2.0-8.0); NEUTROPHILS # 2.6 10^3/uL (1.5-8.5); NEUTROPHILS % 52.9 % (36.0-66.0); PLATELET COUNT, AUTOMATED 441 10^3/uL (150-450); RED BLOOD COUNT 3.15 10^6/uL (4.00-5.40); WHITE BLOOD COUNT 4.9 10^3/uL (4.0-10.0)
[2023-02-11] MEDS: ONDANSETRON 4MG ORAL DISINTEGRATING TAB PO PRN (06:07)
[2023-02-11 06:19] LABS: BLOOD UREA NITROGEN 13 MG/DL (9-23); CALCIUM LEVEL 8.9 MG/DL (8.5-10.1); CARBON DIOXIDE LEVEL 31 MMOL/L (20-31); CHLORIDE LEVEL 105 MMOL/L (98-107); CREATININE FOR GFR 0.58 MG/DL (0.55-1.30); GLOMERULAR FILTRATION RATE > 60.0 (>60); GLUCOSE, FASTING 83 MG/DL (60-100); POTASSIUM SERUM 3.7 MMOL/L (3.5-5.1); SODIUM LEVEL 141 MMOL/L (136-145)
[2023-02-11] MEDS: INSULIN LISPRO (NovoLOG) PER UNIT SC SCH ×2 (06:50→12:00)
[2023-02-11 06:58] VITALS: BP 134/84; TEMP 97.7; O2SAT 96
[2023-02-11] MEDS: PERCOCET 5MG/325MG TAB PO PRN ×2 (09:06→15:52)
[2023-02-11] MEDS: predniSONE 5 MG TAB PO SCH (09:07)
[2023-02-11] MEDS: PRENATAL VITAMINS CHEWABLE TABLET PO SCH (09:07)
[2023-02-11] MEDS: FAMOTIDINE 20 MG TAB PO SCH (09:07)
[2023-02-11] MEDS: ENOXAPARIN 40MG/0.4ML SYRINGE (J1650 PER 10MG) SC SCH (09:07)
[2023-02-11] MEDS: CYCLOBENZAPRINE 5MG TABLET PO PRN (10:05)
[2023-02-11] MEDS ORDERED: CYCL5TAB PO (11:05)
[2023-02-11] MEDS ORDERED: LEVO1TAB40 PO (11:05)
[2023-02-11] MEDS ORDERED: ASPI81CH33 PO (17:00)
== END 2023-02-11 16:15 | disposition home health service (06) | DRG 308 ==
LOC: M ED 15:21 → EDBD 15:21 → M ED INP 15:22 → ENRESERV 19:23 → M PCU 20:28 → EEVIPCON 02-06 09:44 → OBSVTOIN 02-06 09:44 → M MS5PR 02-06 18:40
PROVIDERS: ADMIT Internal Medicine; ATTEND Internal Medicine
PROC: 0QS734Z Reposition Left Upper Femur with Internal Fixation Device, Percutaneous Approach (ICD-10-PCS; principal; 2023-02-05 11:45)
DX: M80.852A Other osteoporosis with current pathological fracture, left femur, initial encounter for fracture (principal); G90.A Postural orthostatic tachycardia syndrome [POTS]; E10.43 Type 1 diabetes mellitus with diabetic autonomic (poly)neuropathy; K31.84 Gastroparesis; D63.8 Anemia in other chronic diseases classified elsewhere; D50.9 Iron deficiency anemia, unspecified; F41.9 Anxiety disorder, unspecified; M06.9 Rheumatoid arthritis, unspecified; Z79.899 Other long term (current) drug therapy; Z79.4 Long term (current) use of insulin; Z88.8 Allergy status to other drugs, medicaments and biological substances; K59.00 Constipation, unspecified; K21.9 Gastro-esophageal reflux disease without esophagitis; J45.909 Unspecified asthma, uncomplicated; F39 Unspecified mood [affective] disorder; E10.65 Type 1 diabetes mellitus with hyperglycemia; N39.0 Urinary tract infection, site not specified; G72.0 Drug-induced myopathy; E10.649 Type 1 diabetes mellitus with hypoglycemia without coma; I10 Essential (primary) hypertension

== ENCOUNTER → 2023-02-17 | Outpatient (CLI) | payer OTHER ==
[~2023-02-17] MED LIST changes: +ADME100I; +ADME100I SC; -ADMELOG SC SCH; +ALBU8.5H INH; +ASPI81CH33 PO; +CYCL5TAB PO; +LEVO1TAB40 PO; +PRED5TA PO
== END ==
LOC: M SOG 08:39
PROVIDERS: ATTEND Orthopaedic Surgery
DX: M25.552 Pain in left hip (principal); Z53.9 Procedure and treatment not carried out, unspecified reason

== ENCOUNTER 2023-02-23 15:25 | Outpatient (CLI) | payer OTHER ==
[~2023-02-23] VITALS: Ht 165.1 cm; Wt 75.6 kg
[2023-02-23 15:25] VITALS: BP 144/100; TEMP 98; O2SAT 99
[~2023-02-23 15:25] MED LIST changes: +ALBUTEROL SULFATE 2.5MG/0.5ML INH NEB SOLN INH PRN; +EPINEPHrine INJ 1 MG/ML 1ML AMP IM PRN; +diphenhydrAMINE 50MG/ML VIAL IV PRN; +methylPREDNISolone 125MG 2ML VIAL IV PRN
[2023-02-23] MEDS ORDERED: ACETAMINOPHEN 650MG ER TAB (TYLENOL ARTHRITIS) PO ONE (15:30)
[2023-02-23] MEDS ORDERED: ABATACEPT 750 MG OVER 30 MINUTES IV ONE ×2 (15:30)
[2023-02-23] MEDS ORDERED: diphenhydrAMINE 25MG CAP PO ONE (15:30)
[2023-02-23 16:29] VITALS: BP 132/82; TEMP 97.9; O2SAT 99
== END 2023-02-23 16:15 ==
LOC: M INFU 15:25
PROVIDERS: ATTEND Internal Medicine
DX: M05.9 Rheumatoid arthritis with rheumatoid factor, unspecified (principal); Z88.8 Allergy status to other drugs, medicaments and biological substances
CPT/HCPCS: 96365; J0129

== ENCOUNTER → 2023-02-24 | Outpatient (CLI) | payer OTHER ==
[~2023-02-24] MED LIST changes: -ALBUTEROL SULFATE 2.5MG/0.5ML INH NEB SOLN INH PRN; -EPINEPHrine INJ 1 MG/ML 1ML AMP IM PRN; -diphenhydrAMINE 50MG/ML VIAL IV PRN; -methylPREDNISolone 125MG 2ML VIAL IV PRN
== END ==
LOC: M SOG 09:18
PROVIDERS: ATTEND Orthopaedic Surgery
DX: M25.552 Pain in left hip (principal)

== ENCOUNTER → 2023-03-12 | Outpatient (CLI) | payer OTHER ==
[2023-03-12 18:15] LABS: BASO % 0.6 % (0.0-1.0); EOS % 0.6 % (0.0-3.0); HEMATOCRIT 36.8 % (36.0-47.0); HEMOGLOBIN 11.6 g/dl (12.0-15.5); LYMPH # 0.9 10^3/uL (1.5-5.0); MEAN CORPUSCULAR HEMOGLOBIN 27.8 pg (27.0-33.0); MEAN CORPUSCULAR HGB CONC 31.5 g/dl (32.0-36.5); MEAN CORPUSCULAR VOLUME 88.2 fl (80.0-96.0); MONO # 0.4 10^3/uL (0.0-0.8); MONO % 5.4 % (2.0-8.0); NEUTROPHILS # 5.2 10^3/uL (1.5-8.5); NEUTROPHILS % 78.9 % (36.0-66.0); PLATELET COUNT, AUTOMATED 390 10^3/uL (150-450); RED BLOOD COUNT 4.17 10^6/uL (4.00-5.40); WHITE BLOOD COUNT 6.6 10^3/uL (4.0-10.0)
[2023-03-12 18:34] LABS: ALBUMIN 3.8 G/DL (3.2-5.2); ALKALINE PHOSPHATASE 132 U/L (46-116); ALT/SGPT 12 U/L (7.0-40); AST/SGOT < 8 U/L (<34); BILIRUBIN,DIRECT 0.1 MG/DL (<0.4); BILIRUBIN,TOTAL 0.5 MG/DL (0.3-1.2); BLOOD UREA NITROGEN 13 MG/DL (9-23); CALCIUM LEVEL 8.6 MG/DL (8.5-10.1); CARBON DIOXIDE LEVEL 22 MMOL/L (20-31); CHLORIDE LEVEL 106 MMOL/L (98-107); CREATININE FOR GFR 0.54 MG/DL (0.55-1.30); GLOMERULAR FILTRATION RATE > 60.0 (>60); GLUCOSE, FASTING 134 MG/DL (60-100); POTASSIUM SERUM 3.9 MMOL/L (3.5-5.1); SODIUM LEVEL 140 MMOL/L (136-145); TOTAL PROTEIN 6.5 G/DL (5.7-8.2)
[2023-03-12 18:38] LABS: ERYTHROCYTE SEDIMENTATION RATE 24 mm/hr (0-20)
== END ==
LOC: M LAB 17:08
PROVIDERS: ATTEND Internal Medicine
DX: M05.9 Rheumatoid arthritis with rheumatoid factor, unspecified (principal)

== ENCOUNTER 2023-03-23 15:40 | Outpatient (CLI) | payer OTHER ==
[~2023-03-23 15:40] MED LIST changes: +ALBUTEROL SULFATE 2.5MG/0.5ML INH NEB SOLN INH PRN; +EPINEPHrine INJ 1 MG/ML 1ML AMP IM PRN; +diphenhydrAMINE 50MG/ML VIAL IV PRN; +methylPREDNISolone 125MG 2ML VIAL IV PRN
[2023-03-23] MEDS ORDERED: NS 1,000 ML IV SCH (16:00)
[2023-03-23] MEDS ORDERED: ACETAMINOPHEN 650MG ER TAB (TYLENOL ARTHRITIS) PO ONE (16:00)
[2023-03-23] MEDS ORDERED: ABATACEPT 750 MG OVER 30 MINUTES IV ONE ×2 (16:00)
[2023-03-23] MEDS ORDERED: diphenhydrAMINE 25MG CAP PO ONE (16:00)
[2023-03-23 16:07] VITALS: BP 132/93; O2SAT 100
[2023-03-23 16:50] VITALS: BP 128/68; O2SAT 99
== END 2023-03-23 16:50 | disposition home or self-care (01) ==
LOC: M INFU 15:40
PROVIDERS: ATTEND Internal Medicine
DX: M05.9 Rheumatoid arthritis with rheumatoid factor, unspecified (principal); Z88.8 Allergy status to other drugs, medicaments and biological substances
CPT/HCPCS: 96365; J0129

== ENCOUNTER → 2023-03-24 | Outpatient (CLI) | payer OTHER ==
[~2023-03-24] MED LIST changes: -ALBUTEROL SULFATE 2.5MG/0.5ML INH NEB SOLN INH PRN; -EPINEPHrine INJ 1 MG/ML 1ML AMP IM PRN; -diphenhydrAMINE 50MG/ML VIAL IV PRN; -methylPREDNISolone 125MG 2ML VIAL IV PRN
== END ==
LOC: M SOG 10:11
PROVIDERS: ATTEND Orthopaedic Surgery
DX: S72.045D Nondisplaced fracture of base of neck of left femur, subsequent encounter for closed fracture with routine healing (principal); Y93.9 Activity, unspecified; Y92.9 Unspecified place or not applicable

== ENCOUNTER 2023-04-20 15:20 | Outpatient (CLI) | payer OTHER ==
[~2023-04-20 15:20] MED LIST changes: +ALBUTEROL SULFATE 2.5MG/0.5ML INH NEB SOLN INH PRN; +EPINEPHrine INJ 1 MG/ML 1ML AMP IM PRN; +diphenhydrAMINE 50MG/ML VIAL IV PRN; +methylPREDNISolone 125MG 2ML VIAL IV PRN
[2023-04-20] MEDS ORDERED: ACETAMINOPHEN 650MG ER TAB (TYLENOL ARTHRITIS) PO ONE (15:40)
[2023-04-20 15:45] VITALS: BP 146/76; O2SAT 98
[2023-04-20] MEDS ORDERED: NS 1,000 ML IV SCH (16:00)
[2023-04-20] MEDS ORDERED: diphenhydrAMINE 25MG CAP PO ONE (16:00)
[2023-04-20] MEDS ORDERED: ABATACEPT 750 MG OVER 30 MINUTES IV ONE ×2 (16:00)
[2023-04-20 16:45] VITALS: BP 142/84; O2SAT 99
== END 2023-04-20 16:45 | disposition home or self-care (01) ==
LOC: M INFU 15:20
PROVIDERS: ATTEND Internal Medicine
DX: M05.9 Rheumatoid arthritis with rheumatoid factor, unspecified (principal); Z88.8 Allergy status to other drugs, medicaments and biological substances
CPT/HCPCS: 96365; J0129

== ENCOUNTER → 2023-05-05 | Outpatient (CLI) | payer OTHER ==
[~2023-05-05] MED LIST changes: -ALBUTEROL SULFATE 2.5MG/0.5ML INH NEB SOLN INH PRN; -EPINEPHrine INJ 1 MG/ML 1ML AMP IM PRN; -diphenhydrAMINE 50MG/ML VIAL IV PRN; -methylPREDNISolone 125MG 2ML VIAL IV PRN
== END ==
LOC: M SOG 08:02
PROVIDERS: ATTEND Orthopaedic Surgery
DX: S72.042D Displaced fracture of base of neck of left femur, subsequent encounter for closed fracture with routine healing (principal)

== ENCOUNTER → 2023-05-18 | Outpatient (CLI) | payer OTHER ==
[~2023-05-18] VITALS: Ht 165.1 cm; Wt 74.0 kg
[~2023-05-18] MED LIST changes: +ABATACEPT 750 MG OVER 30 MINUTES IV ONE; +ACETAMINOPHEN TAB 650MG DOSE (2X325MG) PO ONE; +ALBUTEROL SULFATE 2.5MG/0.5ML INH NEB SOLN INH PRN; +EPINEPHrine INJ 1 MG/ML 1ML AMP IM PRN; +diphenhydrAMINE 25MG CAP PO ONE; +diphenhydrAMINE 50MG/ML VIAL IV PRN; +methylPREDNISolone 125MG 2ML VIAL IV PRN
[2023-05-18 15:57] VITALS: BP 144/96; O2SAT 98
[2023-05-18 16:41] VITALS: BP 163/86; O2SAT 100
== END ==
LOC: M INFU 15:40
PROVIDERS: ATTEND Internal Medicine
DX: M05.9 Rheumatoid arthritis with rheumatoid factor, unspecified (principal); Z88.8 Allergy status to other drugs, medicaments and biological substances
CPT/HCPCS: 96365; J0129

== ENCOUNTER 2023-06-15 15:20 | Outpatient (CLI) | payer OTHER ==
[~2023-06-15] VITALS: Ht 165.1 cm; Wt 74.3 kg
[2023-06-15 15:20] VITALS: BP 171/84; O2SAT 99
[~2023-06-15 15:20] MED LIST changes: -ABATACEPT 750 MG OVER 30 MINUTES IV ONE; -ACETAMINOPHEN TAB 650MG DOSE (2X325MG) PO ONE; -diphenhydrAMINE 25MG CAP PO ONE
[2023-06-15] MEDS ORDERED: ABATACEPT 750 MG OVER 30 MINUTES IV ONE ×2 (15:30)
[2023-06-15] MEDS ORDERED: diphenhydrAMINE 50MG CAP PO ONE (15:30)
[2023-06-15] MEDS ORDERED: ACETAMINOPHEN TAB 650MG DOSE (2X325MG) PO ONE (15:30)
[2023-06-15 17:00] VITALS: BP 166/95; O2SAT 100
== END 2023-06-15 17:00 ==
LOC: M INFU 15:20
PROVIDERS: ATTEND Internal Medicine
DX: M05.9 Rheumatoid arthritis with rheumatoid factor, unspecified (principal); Z88.8 Allergy status to other drugs, medicaments and biological substances
CPT/HCPCS: 96365; J0129

== ENCOUNTER 2023-07-13 15:45 | Outpatient (CLI) | payer OTHER ==
[~2023-07-13] VITALS: Ht 165.1 cm; Wt 71.6 kg
[2023-07-13] MEDS ORDERED: diphenhydrAMINE 25MG CAP PO ONE (15:50)
[2023-07-13 15:53] VITALS: BP 179/93; O2SAT 100
[2023-07-13] MEDS ORDERED: ABATACEPT 750 MG OVER 30 MINUTES IV ONE ×2 (15:55)
[2023-07-13] MEDS ORDERED: ACETAMINOPHEN 650MG ER TAB (TYLENOL ARTHRITIS) PO ONE (15:55)
[2023-07-13 16:56] VITALS: BP 130/92; O2SAT 99
== END 2023-07-13 16:57 ==
LOC: M INFU 15:45
PROVIDERS: ATTEND Internal Medicine
DX: M05.9 Rheumatoid arthritis with rheumatoid factor, unspecified (principal); Z88.8 Allergy status to other drugs, medicaments and biological substances
CPT/HCPCS: 96365; J0129

== ENCOUNTER → 2023-08-04 | Outpatient (CLI) | payer OTHER ==
[~2023-08-04] MED LIST changes: -ALBUTEROL SULFATE 2.5MG/0.5ML INH NEB SOLN INH PRN; -EPINEPHrine INJ 1 MG/ML 1ML AMP IM PRN; -diphenhydrAMINE 50MG/ML VIAL IV PRN; -methylPREDNISolone 125MG 2ML VIAL IV PRN
== END ==
LOC: M SOG 07:57
PROVIDERS: ATTEND Orthopaedic Surgery
DX: S72.042D Displaced fracture of base of neck of left femur, subsequent encounter for closed fracture with routine healing (principal); W18.30XD Fall on same level, unspecified, subsequent encounter

== ENCOUNTER 2023-08-11 15:50 | Outpatient (CLI) | payer OTHER ==
[~2023-08-11] VITALS: Ht 165.1 cm; Wt 74.3 kg
[~2023-08-11 15:50] MED LIST changes: +ALBUTEROL SULFATE 2.5MG/0.5ML INH NEB SOLN INH PRN; +EPINEPHrine INJ 1 MG/ML 1ML AMP IM PRN; +diphenhydrAMINE 50MG/ML VIAL IV PRN; +methylPREDNISolone 125MG 2ML VIAL IV PRN
[2023-08-11 16:01] VITALS: BP 146/75; O2SAT 97
[2023-08-11] MEDS ORDERED: diphenhydrAMINE 25MG CAP PO ONE (17:00)
[2023-08-11] MEDS ORDERED: ACETAMINOPHEN TAB 650MG DOSE (2X325MG) PO ONE (17:00)
[2023-08-11] MEDS ORDERED: ABATACEPT 750 MG OVER 30 MINUTES IV ONE ×2 (17:00)
[2023-08-11 17:43] VITALS: BP 137/83; O2SAT 99
== END 2023-08-11 17:45 | disposition home or self-care (01) ==
LOC: M INFU 15:50
PROVIDERS: ATTEND Internal Medicine
DX: M05.9 Rheumatoid arthritis with rheumatoid factor, unspecified (principal); Z88.8 Allergy status to other drugs, medicaments and biological substances
CPT/HCPCS: 96365; J0129

== ENCOUNTER → 2023-08-13 | Outpatient (CLI) | payer OTHER ==
[~2023-08-13] MED LIST changes: -ALBUTEROL SULFATE 2.5MG/0.5ML INH NEB SOLN INH PRN; -EPINEPHrine INJ 1 MG/ML 1ML AMP IM PRN; -diphenhydrAMINE 50MG/ML VIAL IV PRN; -methylPREDNISolone 125MG 2ML VIAL IV PRN
[2023-08-13 18:39] LABS: BASO # 0.1 10^3/uL (0.0-0.2); BASO % 0.7 % (0.0-1.0); EOS # 0.1 10^3/uL (0.0-0.5); HEMOGLOBIN 12.6 g/dl (12.0-15.5); LYMPH # 2.3 10^3/uL (1.5-5.0); LYMPH % 28.1 % (24.0-44.0); MEAN CORPUSCULAR HEMOGLOBIN 26.4 pg (27.0-33.0); MEAN CORPUSCULAR HGB CONC 31.5 g/dl (32.0-36.5); MEAN CORPUSCULAR VOLUME 83.9 fl (80.0-96.0); MONO # 0.7 10^3/uL (0.0-0.8); MONO % 8.4 % (2.0-8.0); NEUTROPHILS # 5.1 10^3/uL (1.5-8.5); NEUTROPHILS % 61.3 % (36.0-66.0); PLATELET COUNT, AUTOMATED 499 10^3/uL (150-450); RED BLOOD COUNT 4.77 10^6/uL (4.00-5.40); WHITE BLOOD COUNT 8.3 10^3/uL (4.0-10.0)
[2023-08-13 18:47] LABS: ERYTHROCYTE SEDIMENTATION RATE 51 mm/hr (0-20)
[2023-08-13 18:55] LABS: ALBUMIN 3.7 G/DL (3.2-5.2); ALKALINE PHOSPHATASE 120 U/L (46-116); ALT/SGPT 19 U/L (7.0-40); AST/SGOT < 8 U/L (<34); BILIRUBIN,DIRECT 0.1 MG/DL (<0.4); BILIRUBIN,TOTAL 0.5 MG/DL (0.3-1.2); BLOOD UREA NITROGEN 16 MG/DL (9-23); CALCIUM LEVEL 8.9 MG/DL (8.5-10.1); CARBON DIOXIDE LEVEL 29 MMOL/L (20-31); CHLORIDE LEVEL 104 MMOL/L (98-107); CREATININE FOR GFR 0.59 MG/DL (0.55-1.30); GLOMERULAR FILTRATION RATE > 60.0 (>60); GLUCOSE, FASTING 90 MG/DL (60-100); SODIUM LEVEL 139 MMOL/L (136-145); TOTAL PROTEIN 6.8 G/DL (5.7-8.2)
== END ==
LOC: M LAB 17:30
PROVIDERS: ATTEND Internal Medicine
DX: M05.9 Rheumatoid arthritis with rheumatoid factor, unspecified (principal)

== ENCOUNTER → 2023-08-27 | Outpatient (CLI) | payer OTHER | LOC: M WHC 09:20 | PROVIDERS: ATTEND Internal Medicine | DX: S72.002A Fracture of unspecified part of neck of left femur, initial encounter for closed fracture (principal); Y93.9 Activity, unspecified; Y92.9 Unspecified place or not applicable ==

== ENCOUNTER → 2023-09-07 | Outpatient (CLI) | payer OTHER ==
[2023-09-07 17:15] LABS: BASO % 0.5 % (0.0-1.0); HEMATOCRIT 39.4 % (36.0-47.0); HEMOGLOBIN 12.5 g/dl (12.0-15.5); LYMPH # 1.6 10^3/uL (1.5-5.0); LYMPH % 21.8 % (24.0-44.0); MEAN CORPUSCULAR HEMOGLOBIN 26.7 pg (27.0-33.0); MEAN CORPUSCULAR HGB CONC 31.7 g/dl (32.0-36.5); MONO # 0.4 10^3/uL (0.0-0.8); MONO % 5.1 % (2.0-8.0); NEUTROPHILS # 5.3 10^3/uL (1.5-8.5); NEUTROPHILS % 72.2 % (36.0-66.0); PLATELET COUNT, AUTOMATED 429 10^3/uL (150-450); RED BLOOD COUNT 4.69 10^6/uL (4.00-5.40); WHITE BLOOD COUNT 7.3 10^3/uL (4.0-10.0)
[2023-09-07 17:23] LABS: ERYTHROCYTE SEDIMENTATION RATE 40 mm/hr (0-20)
[2023-09-07 17:41] LABS: ALBUMIN 3.6 G/DL (3.2-5.2); ALKALINE PHOSPHATASE 121 U/L (46-116); ALT/SGPT 19 U/L (7.0-40); AST/SGOT 9 U/L (<34); BILIRUBIN,DIRECT 0.2 MG/DL (<0.4); BILIRUBIN,TOTAL 0.5 MG/DL (0.3-1.2); BLOOD UREA NITROGEN 16 MG/DL (9-23); CALCIUM LEVEL 9.1 MG/DL (8.5-10.1); CARBON DIOXIDE LEVEL 29 MMOL/L (20-31); CHLORIDE LEVEL 105 MMOL/L (98-107); CREATININE FOR GFR 0.59 MG/DL (0.55-1.30); GLOMERULAR FILTRATION RATE > 60.0 (>60); GLUCOSE, FASTING 127 MG/DL (60-100); POTASSIUM SERUM 3.8 MMOL/L (3.5-5.1); SODIUM LEVEL 138 MMOL/L (136-145); TOTAL PROTEIN 7.1 G/DL (5.7-8.2)
== END ==
LOC: M LAB 16:47
PROVIDERS: ATTEND Internal Medicine
DX: M05.9 Rheumatoid arthritis with rheumatoid factor, unspecified (principal)

== ENCOUNTER 2023-09-08 15:42 | Outpatient (CLI) | payer OTHER ==
[~2023-09-08] VITALS: Ht 165.1 cm; Wt 74.0 kg
[~2023-09-08 15:42] MED LIST changes: +ABATACEPT 750 MG OVER 30 MINUTES IV ONE; +ACETAMINOPHEN TAB 650MG DOSE (2X325MG) PO ONE; +ALBUTEROL SULFATE 2.5MG/0.5ML INH NEB SOLN INH PRN; +EPINEPHrine INJ 1 MG/ML 1ML AMP IM PRN; +diphenhydrAMINE 50MG CAP PO ONE; +diphenhydrAMINE 50MG/ML VIAL IV PRN; +methylPREDNISolone 125MG 2ML VIAL IV PRN
[2023-09-08 15:50] VITALS: BP 148/88; O2SAT 98
[2023-09-08 17:20] VITALS: BP 131/83; O2SAT 100
== END 2023-09-08 17:20 ==
LOC: M INFU 15:42
PROVIDERS: ATTEND Internal Medicine
DX: M05.9 Rheumatoid arthritis with rheumatoid factor, unspecified (principal); Z88.8 Allergy status to other drugs, medicaments and biological substances
CPT/HCPCS: 96365; J0129

== ENCOUNTER → 2023-10-07 | Outpatient (CLI) | payer OTHER ==
[~2023-10-07] MED LIST changes: -ABATACEPT 750 MG OVER 30 MINUTES IV ONE; -ACETAMINOPHEN TAB 650MG DOSE (2X325MG) PO ONE; -ALBUTEROL SULFATE 2.5MG/0.5ML INH NEB SOLN INH PRN; -EPINEPHrine INJ 1 MG/ML 1ML AMP IM PRN; -diphenhydrAMINE 50MG CAP PO ONE; -diphenhydrAMINE 50MG/ML VIAL IV PRN; -methylPREDNISolone 125MG 2ML VIAL IV PRN
[2023-10-07 10:41] LABS: BASO # 0.1 10^3/uL (0.0-0.2); BASO % 1.1 % (0.0-1.0); EOS # 0.1 10^3/uL (0.0-0.5); EOS % 1.5 % (0.0-3.0); HEMATOCRIT 38.4 % (36.0-47.0); HEMOGLOBIN 12.3 g/dl (12.0-15.5); LYMPH % 22.4 % (24.0-44.0); MEAN CORPUSCULAR HEMOGLOBIN 27.5 pg (27.0-33.0); MEAN CORPUSCULAR VOLUME 85.7 fl (80.0-96.0); MONO # 0.3 10^3/uL (0.0-0.8); MONO % 7.3 % (2.0-8.0); NEUTROPHILS # 3.1 10^3/uL (1.5-8.5); NEUTROPHILS % 67.5 % (36.0-66.0); PLATELET COUNT, AUTOMATED 333 10^3/uL (150-450); RED BLOOD COUNT 4.48 10^6/uL (4.00-5.40); WHITE BLOOD COUNT 4.7 10^3/uL (4.0-10.0)
[2023-10-07 10:45] LABS: ERYTHROCYTE SEDIMENTATION RATE 26 mm/hr (0-20)
[2023-10-07 11:45] LABS: ALBUMIN 3.2 G/DL (3.2-5.2); ALKALINE PHOSPHATASE 137 U/L (46-116); ALT/SGPT 15 U/L (7.0-40); AST/SGOT < 8 U/L (<34); BILIRUBIN,DIRECT < 0.1 MG/DL (<0.4); BILIRUBIN,TOTAL 0.3 MG/DL (0.3-1.2); BLOOD UREA NITROGEN 18 MG/DL (9-23); CALCIUM LEVEL 8.6 MG/DL (8.5-10.1); CARBON DIOXIDE LEVEL 27 MMOL/L (20-31); CHLORIDE LEVEL 108 MMOL/L (98-107); CREATININE FOR GFR 0.52 MG/DL (0.55-1.30); GLOMERULAR FILTRATION RATE > 60.0 (>60); GLUCOSE, FASTING 220 MG/DL (60-100); POTASSIUM SERUM 4.7 MMOL/L (3.5-5.1); SODIUM LEVEL 140 MMOL/L (136-145); TOTAL PROTEIN 6.1 G/DL (5.7-8.2)
== END ==
LOC: M LAB 09:51
PROVIDERS: ATTEND Internal Medicine
DX: M05.9 Rheumatoid arthritis with rheumatoid factor, unspecified (principal)

== ENCOUNTER 2023-11-03 13:20 | Outpatient (CLI) | payer OTHER ==
[~2023-11-03 13:20] MED LIST changes: +ABATACEPT 750 MG OVER 30 MINUTES IV ONE; +ACETAMINOPHEN TAB 650MG DOSE (2X325MG) PO ONE; +ALBUTEROL SULFATE 2.5MG/0.5ML INH NEB SOLN INH PRN; +EPINEPHrine INJ 1 MG/ML 1ML AMP IM PRN; +diphenhydrAMINE 50MG CAP PO ONE; +diphenhydrAMINE 50MG/ML VIAL IV PRN; +methylPREDNISolone 125MG 2ML VIAL IV PRN
== END 2023-11-03 13:50 ==
LOC: M INFU 13:20
PROVIDERS: ATTEND Internal Medicine
DX: Z53.9 Procedure and treatment not carried out, unspecified reason (principal)

== ENCOUNTER → 2023-11-13 | Outpatient (CLI) | payer OTHER ==
[~2023-11-13] MED LIST changes: -ABATACEPT 750 MG OVER 30 MINUTES IV ONE; -ACETAMINOPHEN TAB 650MG DOSE (2X325MG) PO ONE; -ALBUTEROL SULFATE 2.5MG/0.5ML INH NEB SOLN INH PRN; -EPINEPHrine INJ 1 MG/ML 1ML AMP IM PRN; -diphenhydrAMINE 50MG CAP PO ONE; -diphenhydrAMINE 50MG/ML VIAL IV PRN; -methylPREDNISolone 125MG 2ML VIAL IV PRN
[2023-11-13 13:13] LABS: BASO % 0.8 % (0.0-1.0); EOS % 0.3 % (0.0-3.0); HEMATOCRIT 38.8 % (36.0-47.0); HEMOGLOBIN 12.7 g/dl (12.0-15.5); LYMPH # 1.3 10^3/uL (1.5-5.0); LYMPH % 21.8 % (24.0-44.0); MEAN CORPUSCULAR HEMOGLOBIN 28.2 pg (27.0-33.0); MEAN CORPUSCULAR HGB CONC 32.7 g/dl (32.0-36.5); MEAN CORPUSCULAR VOLUME 86.2 fl (80.0-96.0); MONO # 0.5 10^3/uL (0.0-0.8); MONO % 8.3 % (2.0-8.0); NEUTROPHILS # 4.2 10^3/uL (1.5-8.5); NEUTROPHILS % 68.5 % (36.0-66.0); PLATELET COUNT, AUTOMATED 351 10^3/uL (150-450); WHITE BLOOD COUNT 6.2 10^3/uL (4.0-10.0)
[2023-11-13 13:14] LABS: BASO # 0.1 10^3/uL (0.0-0.2)
[2023-11-13 13:16] LABS: ERYTHROCYTE SEDIMENTATION RATE 26 mm/hr (0-20)
[2023-11-13 13:43] LABS: ALBUMIN 3.6 G/DL (3.2-5.2); ALKALINE PHOSPHATASE 134 U/L (46-116); ALT/SGPT 19 U/L (7.0-40); AST/SGOT 10 U/L (<34); BILIRUBIN,DIRECT 0.1 MG/DL (<0.4); BILIRUBIN,TOTAL 0.4 MG/DL (0.3-1.2); BLOOD UREA NITROGEN 14 MG/DL (9-23); CALCIUM LEVEL 9.1 MG/DL (8.5-10.1); CARBON DIOXIDE LEVEL 28 MMOL/L (20-31); CHLORIDE LEVEL 104 MMOL/L (98-107); CREATININE FOR GFR 0.61 MG/DL (0.55-1.30); GLOMERULAR FILTRATION RATE > 60.0 (>60); GLUCOSE, FASTING 181 MG/DL (60-100); POTASSIUM SERUM 4.8 MMOL/L (3.5-5.1); SODIUM LEVEL 136 MMOL/L (136-145); TOTAL PROTEIN 6.9 G/DL (5.7-8.2)
== END ==
LOC: M LAB 12:26
PROVIDERS: ATTEND Internal Medicine
DX: M05.9 Rheumatoid arthritis with rheumatoid factor, unspecified (principal)

== ENCOUNTER 2023-11-19 15:20 | Outpatient (CLI) | payer OTHER ==
[~2023-11-19] VITALS: Ht 165.1 cm; Wt 73.6 kg
[2023-11-19] MEDS: diphenhydrAMINE 25MG CAP PO ONE (15:00)
[2023-11-19] MEDS: ACETAMINOPHEN TAB 650MG DOSE (2X325MG) PO ONE (15:00)
[2023-11-19 15:20] VITALS: BP_SYST 146; BP_DIAS 85; BP_DIAS 98; TEMP 97.9; O2SAT 99
[~2023-11-19 15:20] MED LIST changes: +ALBUTEROL SULFATE 2.5MG/0.5ML INH NEB SOLN INH PRN; +EPINEPHrine INJ 1 MG/ML 1ML AMP IM PRN; +diphenhydrAMINE 50MG/ML VIAL IV PRN; +methylPREDNISolone 125MG 2ML VIAL IV PRN
[2023-11-19] MEDS: ABATACEPT 750 MG OVER 30 MINUTES IV ONE (16:05)
[2023-11-19 16:40] VITALS: BP 145/98; O2SAT 100
== END 2023-11-19 16:40 ==
LOC: M INFU 15:20
PROVIDERS: ATTEND Internal Medicine
DX: M05.9 Rheumatoid arthritis with rheumatoid factor, unspecified (principal); Z88.8 Allergy status to other drugs, medicaments and biological substances
CPT/HCPCS: 96365; J0129

== ENCOUNTER → 2023-12-14 | Outpatient (CLI) | payer OTHER ==
[~2023-12-14] MED LIST changes: -ALBUTEROL SULFATE 2.5MG/0.5ML INH NEB SOLN INH PRN; -EPINEPHrine INJ 1 MG/ML 1ML AMP IM PRN; -diphenhydrAMINE 50MG/ML VIAL IV PRN; -methylPREDNISolone 125MG 2ML VIAL IV PRN
[2023-12-14 16:26] LABS: BASO # 0.1 10^3/uL (0.0-0.2); BASO % 1.1 % (0.0-1.0); EOS % 0.4 % (0.0-3.0); HEMATOCRIT 37.6 % (36.0-47.0); HEMOGLOBIN 12.4 g/dl (12.0-15.5); LYMPH # 1.7 10^3/uL (1.5-5.0); LYMPH % 29.6 % (24.0-44.0); MEAN CORPUSCULAR HEMOGLOBIN 28.1 pg (27.0-33.0); MEAN CORPUSCULAR VOLUME 85.1 fl (80.0-96.0); MONO # 0.4 10^3/uL (0.0-0.8); MONO % 7.7 % (2.0-8.0); NEUTROPHILS # 3.4 10^3/uL (1.5-8.5); PLATELET COUNT, AUTOMATED 306 10^3/uL (150-450); RED BLOOD COUNT 4.42 10^6/uL (4.00-5.40); WHITE BLOOD COUNT 5.6 10^3/uL (4.0-10.0)
[2023-12-14 16:39] LABS: ERYTHROCYTE SEDIMENTATION RATE 41 mm/hr (0-20)
[2023-12-14 16:55] LABS: ALBUMIN 3.3 G/DL (3.2-5.2); ALKALINE PHOSPHATASE 145 U/L (46-116); ALT/SGPT 17 U/L (7.0-40); AST/SGOT < 8 U/L (<34); BILIRUBIN,DIRECT 0.2 MG/DL (<0.4); BILIRUBIN,TOTAL 0.6 MG/DL (0.3-1.2); BLOOD UREA NITROGEN 8 MG/DL (9-23); CALCIUM LEVEL 8.8 MG/DL (8.5-10.1); CARBON DIOXIDE LEVEL 26 MMOL/L (20-31); CHLORIDE LEVEL 103 MMOL/L (98-107); CREATININE FOR GFR 0.69 MG/DL (0.55-1.30); GLOMERULAR FILTRATION RATE > 60.0 (>60); GLUCOSE, FASTING 387 MG/DL (60-100); POTASSIUM SERUM 4.3 MMOL/L (3.5-5.1); SODIUM LEVEL 137 MMOL/L (136-145); TOTAL PROTEIN 6.6 G/DL (5.7-8.2)
== END ==
LOC: M LAB 15:51
PROVIDERS: ATTEND Internal Medicine
DX: M05.9 Rheumatoid arthritis with rheumatoid factor, unspecified (principal)

== ENCOUNTER 2023-12-17 15:10 | Outpatient (CLI) | payer OTHER ==
[~2023-12-17] VITALS: Ht 162.6 cm; Wt 73.6 kg
[2023-12-17 15:05] VITALS: BP 157/81; O2SAT 100
[~2023-12-17 15:10] MED LIST changes: +ACETAMINOPHEN TAB 650MG DOSE (2X325MG) PO ONE; +ALBUTEROL SULFATE 2.5MG/0.5ML INH NEB SOLN INH PRN; +EPINEPHrine INJ 1 MG/ML 1ML AMP IM PRN; +diphenhydrAMINE 25MG CAP PO ONE; +diphenhydrAMINE 50MG/ML VIAL IV PRN; +methylPREDNISolone 125MG 2ML VIAL IV PRN
[2023-12-17] MEDS: ABATACEPT 750 MG OVER 30 MINUTES IV ONE (15:49)
[2023-12-17 16:25] VITALS: BP 141/85; O2SAT 100
== END 2023-12-17 16:25 ==
LOC: M INFU 15:10
PROVIDERS: ATTEND Internal Medicine
DX: M05.9 Rheumatoid arthritis with rheumatoid factor, unspecified (principal); Z88.8 Allergy status to other drugs, medicaments and biological substances
CPT/HCPCS: 96365; J0129

== ENCOUNTER 2023-12-30 10:34 | Emergency (ER) | payer OTHER ==
[~2023-12-30] VITALS: Ht 165.1 cm; Wt 71.0 kg
[~2023-12-30 10:34] MED LIST changes: -ACETAMINOPHEN TAB 650MG DOSE (2X325MG) PO ONE; -ALBUTEROL SULFATE 2.5MG/0.5ML INH NEB SOLN INH PRN; -EPINEPHrine INJ 1 MG/ML 1ML AMP IM PRN; -diphenhydrAMINE 25MG CAP PO ONE; -diphenhydrAMINE 50MG/ML VIAL IV PRN; -methylPREDNISolone 125MG 2ML VIAL IV PRN
[2023-12-30] MEDS ORDERED: FAMO40TA3 PO (10:53)
[2023-12-30 11:01] LABS: BASO # 0.1 10^3/uL (0.0-0.2); BASO % 0.7 % (0.0-1.0); HEMATOCRIT 38.2 % (36.0-47.0); HEMOGLOBIN 12.4 g/dl (12.0-15.5); LYMPH # 1.2 10^3/uL (1.5-5.0); LYMPH % 13.6 % (24.0-44.0); MEAN CORPUSCULAR HEMOGLOBIN 28.1 pg (27.0-33.0); MEAN CORPUSCULAR HGB CONC 32.5 g/dl (32.0-36.5); MEAN CORPUSCULAR VOLUME 86.4 fl (80.0-96.0); MONO # 0.4 10^3/uL (0.0-0.8); MONO % 4.5 % (2.0-8.0); NEUTROPHILS # 7.2 10^3/uL (1.5-8.5); NEUTROPHILS % 80.9 % (36.0-66.0); PLATELET COUNT, AUTOMATED 434 10^3/uL (150-450); RED BLOOD COUNT 4.42 10^6/uL (4.00-5.40); WHITE BLOOD COUNT 8.9 10^3/uL (4.0-10.0)
[2023-12-30 11:26] LABS: BLOOD UREA NITROGEN 17 MG/DL (9-23); CALCIUM LEVEL 8.7 MG/DL (8.5-10.1); CARBON DIOXIDE LEVEL 17 MMOL/L (20-31); CHLORIDE LEVEL 98 MMOL/L (98-107); CK-MB VALUE MASS < 1.0 NG/ML (<3.6); CREATININE FOR GFR 0.56 MG/DL (0.55-1.30); GLOMERULAR FILTRATION RATE > 60.0 (>60); GLUCOSE, FASTING 362 MG/DL (60-100); POTASSIUM SERUM 4.4 MMOL/L (3.5-5.1); SODIUM LEVEL 134 MMOL/L (136-145)
[2023-12-30 11:29] LABS: CPK CREATINE PHOSPHOKINASE 68 U/L (34-145); MB/CK RELATIVE INDEX 1.47 (< OR =4)
[2023-12-30] MEDS ORDERED: OREN1INJ SC (11:49)
[2023-12-30] MEDS ORDERED: ALPR0.25 PO (11:49)
[2023-12-30] MEDS ORDERED: ASPI81TA26 PO (11:49)
[2023-12-30] MEDS ORDERED: ONDA-83 PO (11:49)
[2023-12-30] MEDS ORDERED: HOME MED LIST COMPLETE! XX SCH (11:55)
[2023-12-30] MEDS: NS 1,000 ML IV ONE ×3 (12:07→17:45)
[2023-12-30 12:10] LABS: VENOUS BASE EXCESS -9.2 (-2.0-2.0); VENOUS HCO3 15.5 MMOL/L (23.0-27.0); VENOUS O2 SATURATION 91.7 % (60.0-80.0); VENOUS PARTIAL PRESSURE CO2 30.4 mmHg (38.0-50.0); VENOUS PARTIAL PRESSURE O2 66.9 mmHg (30.0-50.0); VENOUS PH 7.326 UNITS (7.330-7.430); VENOUS STANDARD HCO3 17.1 MMOL/L; VENOUS TOTAL CO2 16.5 MMOL/L (24.0-28.0)
[2023-12-30 12:39] LABS: CK-MB VALUE MASS < 1.0 NG/ML (<3.6)
[2023-12-30 12:42] LABS: CPK CREATINE PHOSPHOKINASE 55 U/L (34-145); MB/CK RELATIVE INDEX 1.81 (< OR =4)
[2023-12-30 12:46] LABS: ACETONE/KETONE > 4.50 MMOL/L (0.02-0.27); ALBUMIN 3.6 G/DL (3.2-5.2); ALKALINE PHOSPHATASE 129 U/L (46-116); ALT/SGPT 25 U/L (7.0-40); AST/SGOT 49 U/L (<34); BILIRUBIN,DIRECT 0.1 MG/DL (<0.4); BILIRUBIN,TOTAL 0.7 MG/DL (0.3-1.2); LIPASE 30 U/L (12-53); TOTAL PROTEIN 6.7 G/DL (5.7-8.2)
[2023-12-30 12:58] LABS: HCG, SERUM QUALITATIVE NEGATIVE (NEGATIVE)
[2023-12-30 13:34] LABS: HEMOGLOBIN A1c 11.5 % (4.0-6.0)
[2023-12-30] MEDS ORDERED: ISOVUE-370 76% 100ML VIAL As Ordered ONE (14:11)
[2023-12-30 15:36] LABS: BLOOD UREA NITROGEN 15 MG/DL (9-23); CALCIUM LEVEL 8.2 MG/DL (8.5-10.1); CARBON DIOXIDE LEVEL 16 MMOL/L (20-31); CHLORIDE LEVEL 104 MMOL/L (98-107); CREATININE FOR GFR 0.48 MG/DL (0.55-1.30); GLOMERULAR FILTRATION RATE > 60.0 (>60); GLUCOSE, FASTING 272 MG/DL (60-100); MAGNESIUM LEVEL 1.5 MG/DL (1.8-2.4); POTASSIUM SERUM 4.8 MMOL/L (3.5-5.1); SODIUM LEVEL 136 MMOL/L (136-145)
[2023-12-30] MEDS: MAG SULF 1GM/100ML (MAG RUN) 1 GM in IV 1 EA IV ONE (17:13)
[2023-12-30 18:15] VITALS: TEMP 97.9
[2023-12-30 18:30] VITALS: BP 142/78; O2SAT 100
== END 2023-12-30 18:50 | disposition home or self-care (01) ==
LOC: M ED 10:34 → EDBD 10:34 → M ED 18:50
DX: E11.10 Type 2 diabetes mellitus with ketoacidosis without coma (principal); I10 Essential (primary) hypertension; Z88.8 Allergy status to other drugs, medicaments and biological substances; Z79.51 Long term (current) use of inhaled steroids; Z79.1 Long term (current) use of non-steroidal anti-inflammatories (NSAID); Z79.4 Long term (current) use of insulin; Z79.52 Long term (current) use of systemic steroids; Z79.899 Other long term (current) drug therapy
CPT/HCPCS: 71045; 74177; 80048; 80076; 81001; 82010; 82550; 82553; 82803; 83036; 83605; 83690; 83735; 84484; 84703; 85025; 86140; 87040; 93005; 93041; 94760; 96361; 96365; 99285; J3475; Q9967

== ENCOUNTER → 2024-01-14 | Outpatient (CLI) | payer OTHER ==
[~2024-01-14] MED LIST changes: +ALPR0.25 PO; +ASPI81TA26 PO; +FAMO40TA3 PO; +ONDA-83 PO; +OREN1INJ SC
[2024-01-14 17:49] LABS: BASO # 0.1 10^3/uL (0.0-0.2); BASO % 0.6 % (0.0-1.0); EOS % 0.3 % (0.0-3.0); HEMATOCRIT 38.2 % (36.0-47.0); HEMOGLOBIN 12.3 g/dl (12.0-15.5); LYMPH # 1.8 10^3/uL (1.5-5.0); LYMPH % 22.7 % (24.0-44.0); MEAN CORPUSCULAR HEMOGLOBIN 27.8 pg (27.0-33.0); MEAN CORPUSCULAR HGB CONC 32.2 g/dl (32.0-36.5); MEAN CORPUSCULAR VOLUME 86.2 fl (80.0-96.0); MONO # 0.6 10^3/uL (0.0-0.8); MONO % 7.8 % (2.0-8.0); NEUTROPHILS # 5.3 10^3/uL (1.5-8.5); NEUTROPHILS % 68.3 % (36.0-66.0); PLATELET COUNT, AUTOMATED 429 10^3/uL (150-450); RED BLOOD COUNT 4.43 10^6/uL (4.00-5.40); WHITE BLOOD COUNT 7.7 10^3/uL (4.0-10.0)
[2024-01-14 17:59] LABS: ALBUMIN 3.3 G/DL (3.2-5.2); ALKALINE PHOSPHATASE 124 U/L (46-116); ALT/SGPT 18 U/L (7.0-40); AST/SGOT 8 U/L (<34); BILIRUBIN,DIRECT < 0.1 MG/DL (<0.4); BILIRUBIN,TOTAL 0.4 MG/DL (0.3-1.2); BLOOD UREA NITROGEN 13 MG/DL (9-23); CALCIUM LEVEL 8.9 MG/DL (8.5-10.1); CARBON DIOXIDE LEVEL 29 MMOL/L (20-31); CHLORIDE LEVEL 106 MMOL/L (98-107); GLOMERULAR FILTRATION RATE > 60.0 (>60); GLUCOSE, FASTING 65 MG/DL (60-100); POTASSIUM SERUM 4.2 MMOL/L (3.5-5.1); SODIUM LEVEL 141 MMOL/L (136-145); TOTAL PROTEIN 6.4 G/DL (5.7-8.2)
[2024-01-14 18:13] LABS: ERYTHROCYTE SEDIMENTATION RATE 33 mm/hr (0-20)
== END ==
LOC: M LAB 17:04
PROVIDERS: ATTEND Internal Medicine
DX: M05.9 Rheumatoid arthritis with rheumatoid factor, unspecified (principal)

== ENCOUNTER → 2024-02-07 | Outpatient (REF) | payer MEDICAID, OTHER ==
[~2024-02-07] MED LIST changes: +ONDA-282 PO; -ONDA4TAB6 PO
[2024-02-07 18:23] LABS: IMMUNOGLOBULIN A 344.2 MG/DL (40-350)
[2024-02-07 18:24] LABS: COMPLEMENT C3 157.6 MG/DL (84.0-160.0); COMPLEMENT C4 39.3 MG/DL (12-36); IMMUNOGLOBULIN G 854 MG/DL (650-1600)
[2024-02-09 06:26] LABS: T P ELECTROPHORESIS SO 7.3 g/dL (6.1-8.1)
[2024-02-10 08:02] LABS: ALBUMIN SPEP 4.1 g/dL (3.8-4.8); ALPHA-1-GLOBULINS SO 0.3 g/dL (0.2-0.3); BETA 2 GLOBULIN 0.5 g/dL (0.2-0.5); BETA-GLOBULIN SO 0.6 g/dL (0.4-0.6); GAMMA GLOBULINS SO 0.8 g/dL (0.8-1.7)
[2024-02-11 16:59] LABS: COMPLEMENT TOTAL (CH50) > 60 U/mL (31-60)
== END ==
LOC: M SFHCRHEU 15:18
PROVIDERS: ATTEND Internal Medicine
DX: B99.9 Unspecified infectious disease (principal); M05.9 Rheumatoid arthritis with rheumatoid factor, unspecified

== ENCOUNTER 2024-02-11 15:08 | Outpatient (CLI) | payer OTHER ==
[~2024-02-11] VITALS: Ht 162.6 cm; Wt 73.6 kg
[~2024-02-11 15:08] MED LIST changes: +ACETAMINOPHEN TAB 650MG DOSE (2X325MG) PO ONE; +ALBUTEROL SULFATE 2.5MG/0.5ML INH NEB SOLN INH PRN; +EPINEPHrine INJ 1 MG/ML 1ML AMP IM PRN; +diphenhydrAMINE 50MG CAP PO ONE; +diphenhydrAMINE 50MG/ML VIAL IV PRN; +methylPREDNISolone 125MG 2ML VIAL IV PRN
[2024-02-11 15:15] VITALS: BP 129/91; O2SAT 97
[2024-02-11] MEDS: ABATACEPT 750 MG OVER 30 MINUTES IV ONE (16:22)
[2024-02-11 16:58] VITALS: BP 143/74; O2SAT 99
[2024-02-11 17:00] VITALS: BP 143/74; TEMP 36.7; O2SAT 99
== END 2024-02-11 17:00 | disposition home or self-care (01) ==
LOC: M INFU 15:08
PROVIDERS: ATTEND Internal Medicine
DX: M05.9 Rheumatoid arthritis with rheumatoid factor, unspecified (principal); Z88.8 Allergy status to other drugs, medicaments and biological substances
CPT/HCPCS: 96365; J0129

== ENCOUNTER → 2024-02-12 | Outpatient (CLI) | payer OTHER ==
[~2024-02-12] MED LIST changes: -ACETAMINOPHEN TAB 650MG DOSE (2X325MG) PO ONE; -ALBUTEROL SULFATE 2.5MG/0.5ML INH NEB SOLN INH PRN; -EPINEPHrine INJ 1 MG/ML 1ML AMP IM PRN; -diphenhydrAMINE 50MG CAP PO ONE; -diphenhydrAMINE 50MG/ML VIAL IV PRN; -methylPREDNISolone 125MG 2ML VIAL IV PRN
[2024-02-12 18:05] LABS: BASO # 0.1 10^3/uL (0.0-0.2); BASO % 0.8 % (0.0-1.0); EOS # 0.1 10^3/uL (0.0-0.5); EOS % 0.8 % (0.0-3.0); HEMATOCRIT 38.1 % (36.0-47.0); HEMOGLOBIN 12.3 g/dl (12.0-15.5); LYMPH # 1.6 10^3/uL (1.5-5.0); LYMPH % 22.8 % (24.0-44.0); MEAN CORPUSCULAR HEMOGLOBIN 28.3 pg (27.0-33.0); MEAN CORPUSCULAR HGB CONC 32.3 g/dl (32.0-36.5); MEAN CORPUSCULAR VOLUME 87.6 fl (80.0-96.0); MONO # 0.5 10^3/uL (0.0-0.8); MONO % 6.6 % (2.0-8.0); NEUTROPHILS # 4.9 10^3/uL (1.5-8.5); NEUTROPHILS % 68.7 % (36.0-66.0); PLATELET COUNT, AUTOMATED 398 10^3/uL (150-450); RED BLOOD COUNT 4.35 10^6/uL (4.00-5.40); WHITE BLOOD COUNT 7.1 10^3/uL (4.0-10.0)
[2024-02-12 18:13] LABS: ERYTHROCYTE SEDIMENTATION RATE 54 mm/hr (0-20)
[2024-02-12 18:33] LABS: ALBUMIN 3.4 G/DL (3.2-5.2); ALKALINE PHOSPHATASE 147 U/L (46-116); ALT/SGPT 17 U/L (7.0-40); AST/SGOT < 8 U/L (<34); BILIRUBIN,DIRECT 0.1 MG/DL (<0.4); BILIRUBIN,TOTAL 0.4 MG/DL (0.3-1.2); BLOOD UREA NITROGEN 15 MG/DL (9-23); CALCIUM LEVEL 8.8 MG/DL (8.5-10.1); CARBON DIOXIDE LEVEL 27 MMOL/L (20-31); CHLORIDE LEVEL 105 MMOL/L (98-107); CREATININE FOR GFR 0.57 MG/DL (0.55-1.30); GLOMERULAR FILTRATION RATE > 60.0 (>60); GLUCOSE, FASTING 92 MG/DL (60-100); POTASSIUM SERUM 4.1 MMOL/L (3.5-5.1); SODIUM LEVEL 137 MMOL/L (136-145); TOTAL PROTEIN 6.7 G/DL (5.7-8.2)
== END ==
LOC: M LAB 16:30
PROVIDERS: ATTEND Internal Medicine
DX: M05.9 Rheumatoid arthritis with rheumatoid factor, unspecified (principal)

== ENCOUNTER 2024-03-10 15:00 | Outpatient (CLI) | payer OTHER ==
[~2024-03-10] VITALS: Ht 162.6 cm; Wt 75.0 kg
[~2024-03-10 15:00] MED LIST changes: +ACETAMINOPHEN TAB 650MG DOSE (2X325MG) PO ONE; +ALBUTEROL SULFATE 2.5MG/0.5ML INH NEB SOLN INH PRN; +EPINEPHrine INJ 1 MG/ML 1ML AMP IM PRN; +NS 1,000 ML IV SCH; +diphenhydrAMINE 50MG CAP PO ONE; +diphenhydrAMINE 50MG/ML VIAL IV PRN; +methylPREDNISolone 125MG 2ML VIAL IV PRN
[2024-03-10 15:38] VITALS: BP 140/82; O2SAT 95
[2024-03-10] MEDS: ABATACEPT 750 MG OVER 30 MINUTES IV ONE (15:59)
[2024-03-10 17:00] VITALS: BP 128/79; O2SAT 99
== END 2024-03-10 17:00 ==
LOC: M INFU 15:00
PROVIDERS: ATTEND Internal Medicine
DX: M05.9 Rheumatoid arthritis with rheumatoid factor, unspecified (principal); Z88.8 Allergy status to other drugs, medicaments and biological substances
CPT/HCPCS: 96365; J0129

== ENCOUNTER 2024-04-07 15:15 | Outpatient (CLI) | payer OTHER ==
[~2024-04-07 15:15] MED LIST changes: -NS 1,000 ML IV SCH
[2024-04-07 15:25] VITALS: BP 166/86; O2SAT 98
[2024-04-07] MEDS: ABATACEPT 750 MG OVER 30 MINUTES IV ONE (16:01)
[2024-04-07 16:29] VITALS: BP 119/73; O2SAT 99
== END 2024-04-07 16:30 ==
LOC: M INFU 15:15
PROVIDERS: ATTEND Internal Medicine
DX: M05.9 Rheumatoid arthritis with rheumatoid factor, unspecified (principal); Z88.8 Allergy status to other drugs, medicaments and biological substances
CPT/HCPCS: 96365; J0129

== ENCOUNTER → 2024-04-15 | Outpatient (CLI) | payer OTHER ==
[~2024-04-15] MED LIST changes: -ACETAMINOPHEN TAB 650MG DOSE (2X325MG) PO ONE; -ALBUTEROL SULFATE 2.5MG/0.5ML INH NEB SOLN INH PRN; -EPINEPHrine INJ 1 MG/ML 1ML AMP IM PRN; -diphenhydrAMINE 50MG CAP PO ONE; -diphenhydrAMINE 50MG/ML VIAL IV PRN; -methylPREDNISolone 125MG 2ML VIAL IV PRN
[2024-04-15 16:46] LABS: BASO # 0.1 10^3/uL (0.0-0.2); BASO % 0.7 % (0.0-1.0); EOS # 0.1 10^3/uL (0.0-0.5); EOS % 1.3 % (0.0-3.0); HEMATOCRIT 39.5 % (36.0-47.0); HEMOGLOBIN 12.8 g/dl (12.0-15.5); LYMPH # 2.8 10^3/uL (1.5-5.0); LYMPH % 30.8 % (24.0-44.0); MEAN CORPUSCULAR HEMOGLOBIN 27.6 pg (27.0-33.0); MEAN CORPUSCULAR HGB CONC 32.4 g/dl (32.0-36.5); MEAN CORPUSCULAR VOLUME 85.1 fl (80.0-96.0); MONO # 0.9 10^3/uL (0.0-0.8); MONO % 10.1 % (2.0-8.0); NEUTROPHILS # 5.2 10^3/uL (1.5-8.5); NEUTROPHILS % 56.8 % (36.0-66.0); PLATELET COUNT, AUTOMATED 466 10^3/uL (150-450); RED BLOOD COUNT 4.64 10^6/uL (4.00-5.40); WHITE BLOOD COUNT 9.1 10^3/uL (4.0-10.0)
[2024-04-15 16:56] LABS: ERYTHROCYTE SEDIMENTATION RATE 55 mm/hr (0-20)
[2024-04-15 17:12] LABS: ALBUMIN 3.5 G/DL (3.2-5.2); ALKALINE PHOSPHATASE 116 U/L (46-116); ALT/SGPT 14 U/L (7.0-40); AST/SGOT 10 U/L (<34); BILIRUBIN,DIRECT 0.1 MG/DL (<0.4); BILIRUBIN,TOTAL 0.4 MG/DL (0.3-1.2); BLOOD UREA NITROGEN 13 MG/DL (9-23); CARBON DIOXIDE LEVEL 24 MMOL/L (20-31); CHLORIDE LEVEL 109 MMOL/L (98-107); CREATININE FOR GFR 0.62 MG/DL (0.55-1.30); GLOMERULAR FILTRATION RATE > 60.0 (>60); GLUCOSE, FASTING 54 MG/DL (60-100); POTASSIUM SERUM 3.9 MMOL/L (3.5-5.1); SODIUM LEVEL 140 MMOL/L (136-145); TOTAL PROTEIN 7.1 G/DL (5.7-8.2)
== END ==
LOC: M LAB 16:08
PROVIDERS: ATTEND Internal Medicine
DX: M05.9 Rheumatoid arthritis with rheumatoid factor, unspecified (principal)

== ENCOUNTER 2024-05-05 15:40 | Outpatient (CLI) | payer OTHER ==
[~2024-05-05] VITALS: Ht 162.6 cm; Wt 73.6 kg
[2024-05-05 15:40] VITALS: BP 160/94; O2SAT 98
[~2024-05-05 15:40] MED LIST changes: +ACETAMINOPHEN TAB 650MG DOSE (2X325MG) PO ONE; +ALBUTEROL SULFATE 2.5MG/0.5ML INH NEB SOLN INH PRN; +EPINEPHrine INJ 1 MG/ML 1ML AMP IM PRN; +diphenhydrAMINE 50MG PO PRIOR TO INFUSION PO ONE; +diphenhydrAMINE 50MG/ML VIAL IV PRN; +methylPREDNISolone 125MG 2ML VIAL IV PRN
[2024-05-05] MEDS: ABATACEPT 750 MG OVER 30 MINUTES IV ONE (16:44)
[2024-05-05 17:25] VITALS: BP 130/80; O2SAT 100
== END 2024-05-05 17:25 ==
LOC: M INFU 15:40
PROVIDERS: ATTEND Internal Medicine
DX: M05.9 Rheumatoid arthritis with rheumatoid factor, unspecified (principal); Z88.8 Allergy status to other drugs, medicaments and biological substances
CPT/HCPCS: 96365; J0129

== ENCOUNTER → 2024-05-15 | Outpatient (CLI) | payer OTHER, MEDICAID ==
[~2024-05-15] MED LIST changes: -ACETAMINOPHEN TAB 650MG DOSE (2X325MG) PO ONE; -ALBUTEROL SULFATE 2.5MG/0.5ML INH NEB SOLN INH PRN; -EPINEPHrine INJ 1 MG/ML 1ML AMP IM PRN; -diphenhydrAMINE 50MG PO PRIOR TO INFUSION PO ONE; -diphenhydrAMINE 50MG/ML VIAL IV PRN; -methylPREDNISolone 125MG 2ML VIAL IV PRN
[2024-05-15 16:56] LABS: BASO % 0.4 % (0.0-1.0); EOS % 0.2 % (0.0-3.0); HEMOGLOBIN 12.5 g/dl (12.0-15.5); LYMPH % 21.7 % (24.0-44.0); MEAN CORPUSCULAR HEMOGLOBIN 27.8 pg (27.0-33.0); MEAN CORPUSCULAR HGB CONC 32.9 g/dl (32.0-36.5); MEAN CORPUSCULAR VOLUME 84.4 fl (80.0-96.0); MONO # 0.8 10^3/uL (0.0-0.8); MONO % 8.3 % (2.0-8.0); NEUTROPHILS # 6.2 10^3/uL (1.5-8.5); NEUTROPHILS % 69.1 % (36.0-66.0); PLATELET COUNT, AUTOMATED 383 10^3/uL (150-450)
[2024-05-15 17:02] LABS: ERYTHROCYTE SEDIMENTATION RATE 37 mm/hr (0-20)
[2024-05-15 17:22] LABS: C REACTIVE PROTEIN QUANTITATIV < 0.40 MG/DL (<1.0)
[2024-05-15 17:23] LABS: ALBUMIN 3.6 G/DL (3.2-5.2); ALKALINE PHOSPHATASE 128 U/L (46-116); ALT/SGPT 13 U/L (7.0-40); AST/SGOT < 8 U/L (<34); BILIRUBIN,DIRECT 0.1 MG/DL (<0.4); BILIRUBIN,TOTAL 0.4 MG/DL (0.3-1.2); BLOOD UREA NITROGEN 19 MG/DL (9-23); CALCIUM LEVEL 9.6 MG/DL (8.5-10.1); CARBON DIOXIDE LEVEL 27 MMOL/L (20-31); CHLORIDE LEVEL 103 MMOL/L (98-107); CREATININE FOR GFR 0.71 MG/DL (0.55-1.30); GLOMERULAR FILTRATION RATE > 60.0 (>58); GLUCOSE, FASTING 174 MG/DL (60-100); POTASSIUM SERUM 4.3 MMOL/L (3.5-5.1); SODIUM LEVEL 136 MMOL/L (136-145)
== END ==
LOC: M LAB 16:24
PROVIDERS: ATTEND Internal Medicine
DX: M05.9 Rheumatoid arthritis with rheumatoid factor, unspecified (principal)

== ENCOUNTER 2024-06-02 15:00 | Outpatient (CLI) | payer OTHER ==
[~2024-06-02] VITALS: Ht 162.6 cm; Wt 73.6 kg
[~2024-06-02 15:00] MED LIST changes: +ACETAMINOPHEN 650 MG PO ONE; +ALBUTEROL SULFATE 2.5MG/0.5ML INH NEB SOLN INH PRN; +EPINEPHrine INJ 1 MG/ML 1ML AMP IM PRN; +NS 1,000 ML IV SCH; +diphenhydrAMINE 50MG CAP PO ONE; +diphenhydrAMINE 50MG/ML VIAL IV PRN; +methylPREDNISolone 125MG 2ML VIAL IV PRN
[2024-06-02 15:05] VITALS: BP 140/83; O2SAT 98
[2024-06-02] MEDS: ABATACEPT 750 MG OVER 30 MINUTES IV ONE (16:16)
[2024-06-02 16:50] VITALS: BP 134/84; O2SAT 100
== END 2024-06-02 16:51 ==
LOC: M INFU 15:00
PROVIDERS: ATTEND Internal Medicine
DX: M05.9 Rheumatoid arthritis with rheumatoid factor, unspecified (principal); Z88.8 Allergy status to other drugs, medicaments and biological substances
CPT/HCPCS: 96365; J0129

== ENCOUNTER → 2024-06-15 | Outpatient (CLI) | payer OTHER ==
[~2024-06-15] MED LIST changes: -ACETAMINOPHEN 650 MG PO ONE; -ALBUTEROL SULFATE 2.5MG/0.5ML INH NEB SOLN INH PRN; -EPINEPHrine INJ 1 MG/ML 1ML AMP IM PRN; -NS 1,000 ML IV SCH; -diphenhydrAMINE 50MG CAP PO ONE; -diphenhydrAMINE 50MG/ML VIAL IV PRN; -methylPREDNISolone 125MG 2ML VIAL IV PRN
[2024-06-15 12:10] LABS: BASO % 0.4 % (0.0-1.0); HEMOGLOBIN 12.2 g/dl (12.0-15.5); LYMPH # 1.7 10^3/uL (1.5-5.0); LYMPH % 22.6 % (24.0-44.0); MEAN CORPUSCULAR HEMOGLOBIN 27.5 pg (27.0-33.0); MEAN CORPUSCULAR HGB CONC 31.3 g/dl (32.0-36.5); MONO # 0.8 10^3/uL (0.0-0.8); MONO % 10.7 % (2.0-8.0); NEUTROPHILS # 4.8 10^3/uL (1.5-8.5); NEUTROPHILS % 65.6 % (36.0-66.0); PLATELET COUNT, AUTOMATED 393 10^3/uL (150-450); RED BLOOD COUNT 4.43 10^6/uL (4.00-5.40); WHITE BLOOD COUNT 7.3 10^3/uL (4.0-10.0)
[2024-06-15 12:39] LABS: ALBUMIN 3.5 G/DL (3.2-5.2); ALKALINE PHOSPHATASE 87 U/L (35-104); ALT/SGPT 23 U/L (7.0-40); AST/SGOT 12 U/L (<34); BILIRUBIN,DIRECT 0.2 MG/DL (<0.4); BILIRUBIN,TOTAL 0.6 MG/DL (0.3-1.2); BLOOD UREA NITROGEN 17 MG/DL (9-23); CALCIUM LEVEL 9.1 MG/DL (8.5-10.1); CARBON DIOXIDE LEVEL 27 MMOL/L (20-31); CHLORIDE LEVEL 109 MMOL/L (98-107); CREATININE FOR GFR 0.92 MG/DL (0.55-1.30); ERYTHROCYTE SEDIMENTATION RATE 29 mm/hr (0-20); GLOMERULAR FILTRATION RATE > 60.0 (>58); GLUCOSE, FASTING 66 MG/DL (60-100); POTASSIUM SERUM 3.6 MMOL/L (3.5-5.1); SODIUM LEVEL 142 MMOL/L (136-145); TOTAL PROTEIN 6.7 G/DL (5.7-8.2)
== END ==
LOC: M LAB 11:37
PROVIDERS: ATTEND Internal Medicine
DX: M05.9 Rheumatoid arthritis with rheumatoid factor, unspecified (principal)

== ENCOUNTER 2024-06-30 15:30 | Outpatient (CLI) | payer OTHER ==
[~2024-06-30] VITALS: Ht 162.6 cm; Wt 73.6 kg
[2024-06-30 13:25] VITALS: BP 146/86; O2SAT 99
[2024-06-30] MEDS: ACETAMINOPHEN 650 MG PO ONE (15:00)
[2024-06-30] MEDS: diphenhydrAMINE 50MG CAP PO ONE (15:00)
[~2024-06-30 15:30] MED LIST changes: +ALBUTEROL SULFATE 2.5MG/0.5ML INH NEB SOLN INH PRN; -CYCL5TAB PO; +CYCL5TAB4 PO; +EPINEPHrine INJ 1 MG/ML 1ML AMP IM PRN; +diphenhydrAMINE 50MG/ML VIAL IV PRN; +methylPREDNISolone 125MG 2ML VIAL IV PRN
[2024-06-30] MEDS: ABATACEPT 750 MG OVER 30 MINUTES IV ONE (16:17)
[2024-06-30 16:55] VITALS: BP 153/82; O2SAT 100
== END 2024-06-30 16:55 ==
LOC: M INFU 15:30
PROVIDERS: ATTEND Internal Medicine
DX: M05.9 Rheumatoid arthritis with rheumatoid factor, unspecified (principal); Z88.8 Allergy status to other drugs, medicaments and biological substances
CPT/HCPCS: 96365; J0129

== ENCOUNTER 2024-07-28 14:40 | Outpatient (CLI) | payer OTHER ==
[~2024-07-28] VITALS: Ht 162.6 cm; Wt 73.6 kg
[2024-07-28 14:55] VITALS: BP 156/92; O2SAT 98
[2024-07-28] MEDS ORDERED: diphenhydrAMINE 25MG CAP PO ONE (15:00)
[2024-07-28] MEDS ORDERED: ACETAMINOPHEN 650 MG PO ONE (15:00)
[2024-07-28] MEDS: ABATACEPT 750 MG OVER 30 MINUTES IV ONE (15:36)
[2024-07-28 16:07] VITALS: BP 146/88; O2SAT 99
== END 2024-07-28 16:10 ==
LOC: M INFU 14:40
PROVIDERS: ATTEND Internal Medicine
DX: M05.9 Rheumatoid arthritis with rheumatoid factor, unspecified (principal); Z88.8 Allergy status to other drugs, medicaments and biological substances
CPT/HCPCS: 96365; J0129

== ENCOUNTER → 2024-08-03 | Outpatient (CLI) | payer OTHER ==
[~2024-08-03] MED LIST changes: -ALBUTEROL SULFATE 2.5MG/0.5ML INH NEB SOLN INH PRN; -EPINEPHrine INJ 1 MG/ML 1ML AMP IM PRN; -diphenhydrAMINE 50MG/ML VIAL IV PRN; -methylPREDNISolone 125MG 2ML VIAL IV PRN
== END ==
LOC: M PLARAD 15:01
PROVIDERS: ATTEND Internal Medicine
DX: M23.91 Unspecified internal derangement of right knee (principal)

== ENCOUNTER → 2024-08-10 | Outpatient (CLI) | payer OTHER ==
[2024-08-10 18:47] LABS: BASO % 0.6 % (0.0-1.0); EOS # 0.1 10^3/uL (0.0-0.5); EOS % 0.8 % (0.0-3.0); HEMATOCRIT 38.1 % (36.0-47.0); LYMPH % 15.8 % (24.0-44.0); MEAN CORPUSCULAR HEMOGLOBIN 28.2 pg (27.0-33.0); MEAN CORPUSCULAR HGB CONC 31.5 g/dl (32.0-36.5); MEAN CORPUSCULAR VOLUME 89.4 fl (80.0-96.0); MONO # 0.5 10^3/uL (0.0-0.8); NEUTROPHILS # 4.7 10^3/uL (1.5-8.5); NEUTROPHILS % 74.6 % (36.0-66.0); PLATELET COUNT, AUTOMATED 349 10^3/uL (150-450); RED BLOOD COUNT 4.26 10^6/uL (4.00-5.40); WHITE BLOOD COUNT 6.3 10^3/uL (4.0-10.0)
[2024-08-10 18:54] LABS: ERYTHROCYTE SEDIMENTATION RATE 32 mm/hr (0-20)
[2024-08-10 19:20] LABS: C REACTIVE PROTEIN QUANTITATIV < 0.50 MG/DL (<1.0)
[2024-08-10 19:21] LABS: ALBUMIN 3.6 G/DL (3.2-5.2); ALKALINE PHOSPHATASE 109 U/L (35-104); ALT/SGPT 19 U/L (7.0-40); AST/SGOT 12 U/L (<34); BILIRUBIN,DIRECT 0.1 MG/DL (<0.4); BILIRUBIN,TOTAL 0.4 MG/DL (0.3-1.2); BLOOD UREA NITROGEN 15 MG/DL (9-23); CALCIUM LEVEL 9.5 MG/DL (8.5-10.1); CARBON DIOXIDE LEVEL 27 MMOL/L (20-31); CHLORIDE LEVEL 107 MMOL/L (98-107); CREATININE FOR GFR 0.62 MG/DL (0.55-1.30); GLOMERULAR FILTRATION RATE > 60.0 (>58); GLUCOSE, FASTING 133 MG/DL (60-100); POTASSIUM SERUM 4.2 MMOL/L (3.5-5.1); SODIUM LEVEL 141 MMOL/L (136-145); TOTAL PROTEIN 6.6 G/DL (5.7-8.2)
== END ==
LOC: M LAB 16:53
PROVIDERS: ATTEND Internal Medicine
DX: M05.9 Rheumatoid arthritis with rheumatoid factor, unspecified (principal)

== ENCOUNTER 2024-08-22 05:47 | Emergency (ER) | payer MEDICAID, OTHER ==
[~2024-08-22] VITALS: Ht 162.6 cm; Wt 73.6 kg
[2024-08-22 06:33] LABS: BASO % 0.5 % (0.0-1.0); HEMATOCRIT 35.5 % (36.0-47.0); HEMOGLOBIN 11.6 g/dl (12.0-15.5); LYMPH # 0.8 10^3/uL (1.5-5.0); LYMPH % 8.9 % (24.0-44.0); MEAN CORPUSCULAR HEMOGLOBIN 27.8 pg (27.0-33.0); MEAN CORPUSCULAR HGB CONC 32.7 g/dl (32.0-36.5); MEAN CORPUSCULAR VOLUME 85.1 fl (80.0-96.0); MONO # 0.6 10^3/uL (0.0-0.8); MONO % 6.6 % (2.0-8.0); NEUTROPHILS # 7.3 10^3/uL (1.5-8.5); NEUTROPHILS % 83.5 % (36.0-66.0); PLATELET COUNT, AUTOMATED 276 10^3/uL (150-450); RED BLOOD COUNT 4.17 10^6/uL (4.00-5.40); WHITE BLOOD COUNT 8.7 10^3/uL (4.0-10.0)
[2024-08-22 06:54] LABS: CK-MB VALUE MASS 76.7 NG/ML (<3.6)
[2024-08-22 06:56] LABS: BLOOD UREA NITROGEN 12 MG/DL (9-23); CALCIUM LEVEL 8.9 MG/DL (8.5-10.1); CARBON DIOXIDE LEVEL 25 MMOL/L (20-31); CHLORIDE LEVEL 103 MMOL/L (98-107); CPK CREATINE PHOSPHOKINASE 1101 U/L (34-145); CREATININE FOR GFR 0.62 MG/DL (0.55-1.30); GLOMERULAR FILTRATION RATE > 60.0 (>58); GLUCOSE, FASTING 283 MG/DL (60-100); MB/CK RELATIVE INDEX 6.96 (< OR =4); POTASSIUM SERUM 3.9 MMOL/L (3.5-5.1); SODIUM LEVEL 137 MMOL/L (136-145)
[2024-08-22] MEDS ORDERED: ASPIRIN 81MG CHEW TABLET PO ONE (07:10)
[2024-08-22 07:24] LABS: LIPASE 45 U/L (12-53)
[2024-08-22 07:26] LABS: ALBUMIN 3.3 G/DL (3.2-5.2); ALKALINE PHOSPHATASE 82 U/L (35-104); ALT/SGPT 29 U/L (7.0-40); AST/SGOT 127 U/L (<34); BILIRUBIN,DIRECT 0.2 MG/DL (<0.4); BILIRUBIN,TOTAL 0.7 MG/DL (0.3-1.2); TOTAL PROTEIN 6.1 G/DL (5.7-8.2)
[2024-08-22] MEDS: HEPARIN SOD (PORCINE) 5000UNITS/ML 1ML VIAL/SYRINGE IV ONE (07:31)
[2024-08-22] MEDS: PANTOPRAZOLE 40MG VIAL IV ONE (07:31)
[2024-08-22] MEDS: HEPARIN DRIP 25,000 UNITS in IV 1 EA IV SCH (07:34)
[2024-08-22 07:53] LABS: CK-MB VALUE MASS 67.1 NG/ML (<3.6); MB/CK RELATIVE INDEX 6.17 (< OR =4)
[2024-08-22 09:10] VITALS: BP 127/72; TEMP 99; O2SAT 100
== END 2024-08-22 09:18 | disposition short-term general hospital (02) ==
LOC: M ED 05:47 → EDBD 05:47 → M ED 08:06
DX: I21.4 Non-ST elevation (NSTEMI) myocardial infarction (principal); E11.9 Type 2 diabetes mellitus without complications; K21.9 Gastro-esophageal reflux disease without esophagitis; G90.A Postural orthostatic tachycardia syndrome [POTS]; Z88.8 Allergy status to other drugs, medicaments and biological substances; Z79.1 Long term (current) use of non-steroidal anti-inflammatories (NSAID); Z79.4 Long term (current) use of insulin; Z79.52 Long term (current) use of systemic steroids; Z79.899 Other long term (current) drug therapy
CPT/HCPCS: 71045; 80048; 80076; 82550; 82553; 83690; 84484; 85025; 85730; 93005; 93041; 94760; 96365; 96366; 99285; J2470

== ENCOUNTER → 2024-09-15 | Outpatient (CLI) | payer OTHER ==
[2024-09-15 16:34] LABS: BASO # 0.1 10^3/uL (0.0-0.2); EOS # 0.2 10^3/uL (0.0-0.5); EOS % 2.2 % (0.0-3.0); HEMATOCRIT 34.3 % (36.0-47.0); HEMOGLOBIN 10.6 g/dl (12.0-15.5); LYMPH # 1.9 10^3/uL (1.5-5.0); LYMPH % 27.6 % (24.0-44.0); MEAN CORPUSCULAR HGB CONC 30.9 g/dl (32.0-36.5); MEAN CORPUSCULAR VOLUME 90.7 fl (80.0-96.0); MONO # 0.7 10^3/uL (0.0-0.8); MONO % 10.3 % (2.0-8.0); NEUTROPHILS % 58.6 % (36.0-66.0); PLATELET COUNT, AUTOMATED 581 10^3/uL (150-450); RED BLOOD COUNT 3.78 10^6/uL (4.00-5.40); WHITE BLOOD COUNT 6.8 10^3/uL (4.0-10.0)
[2024-09-15 16:50] LABS: ERYTHROCYTE SEDIMENTATION RATE 40 mm/hr (0-20)
[2024-09-15 17:05] LABS: C REACTIVE PROTEIN QUANTITATIV 0.71 MG/DL (<1.0)
[2024-09-15 17:06] LABS: ALBUMIN 3.1 G/DL (3.2-5.2); ALKALINE PHOSPHATASE 137 U/L (35-104); ALT/SGPT 18 U/L (7.0-40); AST/SGOT 14 U/L (<34); BILIRUBIN,DIRECT 0.2 MG/DL (<0.4); BILIRUBIN,TOTAL 0.6 MG/DL (0.3-1.2); BLOOD UREA NITROGEN 13 MG/DL (9-23); CALCIUM LEVEL 8.4 MG/DL (8.5-10.1); CARBON DIOXIDE LEVEL 26 MMOL/L (20-31); CHLORIDE LEVEL 105 MMOL/L (98-107); CREATININE FOR GFR 0.55 MG/DL (0.55-1.30); GLOMERULAR FILTRATION RATE > 60.0 (>58); GLUCOSE, FASTING 63 MG/DL (60-100); POTASSIUM SERUM 4.1 MMOL/L (3.5-5.1); SODIUM LEVEL 143 MMOL/L (136-145); TOTAL PROTEIN 6.6 G/DL (5.7-8.2)
== END ==
LOC: M LAB 15:42
PROVIDERS: ATTEND Internal Medicine
DX: M05.9 Rheumatoid arthritis with rheumatoid factor, unspecified (principal)

== ENCOUNTER → 2024-10-05 | Outpatient (CLI) | payer OTHER | LOC: M RAD 15:54 | PROVIDERS: ATTEND Physician Assistant | DX: R06.02 Shortness of breath (principal); R05.9 Cough, unspecified ==

== ENCOUNTER → 2024-10-10 | Outpatient (CLI) | payer OTHER ==
[2024-10-10 11:36] LABS: BASO # 0.1 10^3/uL (0.0-0.2); BASO % 0.7 % (0.0-1.0); EOS # 0.1 10^3/uL (0.0-0.5); EOS % 1.2 % (0.0-3.0); HEMATOCRIT 36.4 % (36.0-47.0); HEMOGLOBIN 11.6 g/dl (12.0-15.5); LYMPH % 12.7 % (24.0-44.0); MEAN CORPUSCULAR HEMOGLOBIN 27.8 pg (27.0-33.0); MEAN CORPUSCULAR HGB CONC 31.9 g/dl (32.0-36.5); MEAN CORPUSCULAR VOLUME 87.3 fl (80.0-96.0); MONO # 0.4 10^3/uL (0.0-0.8); MONO % 5.4 % (2.0-8.0); NEUTROPHILS % 79.6 % (36.0-66.0); PLATELET COUNT, AUTOMATED 379 10^3/uL (150-450); RED BLOOD COUNT 4.17 10^6/uL (4.00-5.40); WHITE BLOOD COUNT 7.6 10^3/uL (4.0-10.0)
[2024-10-10 11:44] LABS: ERYTHROCYTE SEDIMENTATION RATE 36 mm/hr (0-20)
[2024-10-10 12:11] LABS: C REACTIVE PROTEIN QUANTITATIV 0.52 MG/DL (<1.0)
[2024-10-10 12:12] LABS: ALBUMIN 3.4 G/DL (3.2-5.2); ALKALINE PHOSPHATASE 125 U/L (35-104); ALT/SGPT 28 U/L (7.0-40); AST/SGOT 16 U/L (<34); BILIRUBIN,DIRECT 0.2 MG/DL (<0.4); BILIRUBIN,TOTAL 0.6 MG/DL (0.3-1.2); BLOOD UREA NITROGEN 14 MG/DL (9-23); CALCIUM LEVEL 8.9 MG/DL (8.5-10.1); CARBON DIOXIDE LEVEL 27 MMOL/L (20-31); CHLORIDE LEVEL 104 MMOL/L (98-107); CREATININE FOR GFR 0.56 MG/DL (0.55-1.30); GLOMERULAR FILTRATION RATE > 60.0 (>58); GLUCOSE, FASTING 174 MG/DL (60-100); POTASSIUM SERUM 4.7 MMOL/L (3.5-5.1); SODIUM LEVEL 139 MMOL/L (136-145); TOTAL PROTEIN 6.9 G/DL (5.7-8.2)
== END ==
LOC: M LAB 10:28
PROVIDERS: ATTEND Internal Medicine
DX: M05.9 Rheumatoid arthritis with rheumatoid factor, unspecified (principal)

== ENCOUNTER 2024-10-18 04:23 | Emergency (ER) | payer OTHER ==
[~2024-10-18] VITALS: Ht 165.1 cm; Wt 75.0 kg
[2024-10-18 05:37] LABS: KETONE, URINE AUTO RFX NEGATIVE (NEGATIVE); LEUKOCYTE ESTERASE UR AUTO RFX NEGATIVE (NEGATIVE); MUCUS, URINE RFX SMALL (NEGATIVE); NITRITE, URINE AUTO RFX NEGATIVE (NEGATIVE); RBC, URINE AUTO RFX TNTC /HPF (0-3); SQUAM EPITHELIAL CELL UR AURFX 6 /HPF (0-6); WBC, URINE AUTO RFX 6 /HPF (0-3); YEAST LIKE CELL URINE AUTO RFX SMALL
[2024-10-18] MEDS: METOCLOPRAMIDE INJ 10MG/2ML VIAL IV ONE (07:12)
[2024-10-18] MEDS: ACETAMINOPHEN *IV* 1,000 MG in IV 1 EA IV ONE (07:13)
[2024-10-18 07:38] LABS: BASO # 0.1 10^3/uL (0.0-0.2); BASO % 0.8 % (0.0-1.0); EOS # 0.1 10^3/uL (0.0-0.5); EOS % 1.4 % (0.0-3.0); HEMATOCRIT 33.9 % (36.0-47.0); HEMOGLOBIN 10.7 g/dl (12.0-15.5); LYMPH # 1.3 10^3/uL (1.5-5.0); LYMPH % 17.1 % (24.0-44.0); MEAN CORPUSCULAR HEMOGLOBIN 27.8 pg (27.0-33.0); MEAN CORPUSCULAR HGB CONC 31.6 g/dl (32.0-36.5); MEAN CORPUSCULAR VOLUME 88.1 fl (80.0-96.0); MONO # 0.7 10^3/uL (0.0-0.8); MONO % 9.7 % (2.0-8.0); NEUTROPHILS # 5.4 10^3/uL (1.5-8.5); NEUTROPHILS % 70.7 % (36.0-66.0); PLATELET COUNT, AUTOMATED 304 10^3/uL (150-450); RED BLOOD COUNT 3.85 10^6/uL (4.00-5.40); WHITE BLOOD COUNT 7.6 10^3/uL (4.0-10.0)
[2024-10-18 08:05] LABS: LIPASE 21 U/L (12-53)
[2024-10-18 08:07] LABS: CK-MB VALUE MASS < 1.0 NG/ML (<3.6); CPK CREATINE PHOSPHOKINASE 56 U/L (34-145); MB/CK RELATIVE INDEX 1.78 (< OR =4)
[2024-10-18 08:08] LABS: ALBUMIN 3.2 G/DL (3.2-5.2); ALKALINE PHOSPHATASE 99 U/L (35-104); ALT/SGPT 21 U/L (7.0-40); AST/SGOT 12 U/L (<34); BILIRUBIN,DIRECT 0.2 MG/DL (<0.4); BILIRUBIN,TOTAL 0.5 MG/DL (0.3-1.2); BLOOD UREA NITROGEN 15 MG/DL (9-23); CALCIUM LEVEL 8.5 MG/DL (8.5-10.1); CARBON DIOXIDE LEVEL 26 MMOL/L (20-31); CHLORIDE LEVEL 108 MMOL/L (98-107); CREATININE FOR GFR 0.59 MG/DL (0.55-1.30); GLOMERULAR FILTRATION RATE > 60.0 (>58); GLUCOSE, FASTING 115 MG/DL (60-100); POTASSIUM SERUM 4.1 MMOL/L (3.5-5.1); SODIUM LEVEL 143 MMOL/L (136-145); TOTAL PROTEIN 6.6 G/DL (5.7-8.2)
[2024-10-18] MEDS ORDERED: REGL10TA6 PO (08:25)
[2024-10-18] MEDS ORDERED: ONDA-282 PO (08:25)
[2024-10-18 08:41] VITALS: BP 142/96; TEMP 98.2; O2SAT 98
== END 2024-10-18 08:57 | disposition home or self-care (01) ==
LOC: M ED 04:23
DX: R10.9 Unspecified abdominal pain (principal); I25.2 Old myocardial infarction; E11.9 Type 2 diabetes mellitus without complications; I12.9 Hypertensive chronic kidney disease with stage 1 through stage 4 chronic kidney disease, or unspecified chronic kidney disease; N18.1 Chronic kidney disease, stage 1; Z88.8 Allergy status to other drugs, medicaments and biological substances; Z79.51 Long term (current) use of inhaled steroids; Z79.1 Long term (current) use of non-steroidal anti-inflammatories (NSAID); Z79.4 Long term (current) use of insulin; Z79.52 Long term (current) use of systemic steroids; Z79.899 Other long term (current) drug therapy
CPT/HCPCS: 76775; 80048; 80076; 81001; 82550; 82553; 83690; 84484; 85025; 93005; 96374; 96375; 99284; J0131; J2765

== ENCOUNTER 2024-10-19 21:19 | Emergency (ER) | payer MEDICAID, OTHER ==
[~2024-10-19] VITALS: Ht 165.1 cm; Wt 74.7 kg
[~2024-10-19 21:19] MED LIST changes: +REGL10TA6 PO
[2024-10-19 21:24] VITALS: TEMP 97.2
[2024-10-20 01:34] LABS: BASO # 0.1 10^3/uL (0.0-0.2); BASO % 0.9 % (0.0-1.0); EOS # 0.1 10^3/uL (0.0-0.5); EOS % 1.3 % (0.0-3.0); HEMATOCRIT 36.1 % (36.0-47.0); HEMOGLOBIN 11.7 g/dl (12.0-15.5); LYMPH # 1.7 10^3/uL (1.5-5.0); LYMPH % 22.1 % (24.0-44.0); MEAN CORPUSCULAR HGB CONC 32.4 g/dl (32.0-36.5); MEAN CORPUSCULAR VOLUME 86.4 fl (80.0-96.0); MONO # 0.8 10^3/uL (0.0-0.8); MONO % 10.5 % (2.0-8.0); NEUTROPHILS # 4.9 10^3/uL (1.5-8.5); NEUTROPHILS % 64.9 % (36.0-66.0); PLATELET COUNT, AUTOMATED 316 10^3/uL (150-450); RED BLOOD COUNT 4.18 10^6/uL (4.00-5.40); WHITE BLOOD COUNT 7.5 10^3/uL (4.0-10.0)
[2024-10-20] MEDS: KETOROLAC 30 MG/ML 1ML VIAL IV ONE (02:05)
[2024-10-20 02:07] LABS: LIPASE 24 U/L (12-53)
[2024-10-20 02:16] LABS: ALBUMIN 3.3 G/DL (3.2-5.2); ALKALINE PHOSPHATASE 90 U/L (35-104); ALT/SGPT 18 U/L (7.0-40); AST/SGOT 15 U/L (<34); BILIRUBIN,DIRECT 0.2 MG/DL (<0.4); BILIRUBIN,TOTAL 0.8 MG/DL (0.3-1.2); BLOOD UREA NITROGEN 18 MG/DL (9-23); CALCIUM LEVEL 8.8 MG/DL (8.5-10.1); CARBON DIOXIDE LEVEL 26 MMOL/L (20-31); CHLORIDE LEVEL 105 MMOL/L (98-107); CREATININE FOR GFR 0.72 MG/DL (0.55-1.30); GLOMERULAR FILTRATION RATE > 60.0 (>58); GLUCOSE, FASTING 108 MG/DL (60-100); POTASSIUM SERUM 3.8 MMOL/L (3.5-5.1); SODIUM LEVEL 140 MMOL/L (136-145); TOTAL PROTEIN 6.7 G/DL (5.7-8.2)
[2024-10-20] MEDS ORDERED: FLOM0.4C39 PO (03:28)
[2024-10-20] MEDS ORDERED: KETO10TAB PO (03:28)
[2024-10-20] MEDS: TAMSULOSIN 0.4 MG CAP PO ONE (03:54)
[2024-10-20 04:00] VITALS: BP 117/63; O2SAT 98
== END 2024-10-20 04:11 | disposition home or self-care (01) ==
LOC: M ED 21:19
DX: R31.9 Hematuria, unspecified (principal); R10.9 Unspecified abdominal pain; I25.2 Old myocardial infarction; I25.119 Atherosclerotic heart disease of native coronary artery with unspecified angina pectoris; E10.9 Type 1 diabetes mellitus without complications; E78.5 Hyperlipidemia, unspecified; E55.9 Vitamin D deficiency, unspecified; Z88.8 Allergy status to other drugs, medicaments and biological substances; Z79.4 Long term (current) use of insulin; Z79.1 Long term (current) use of non-steroidal anti-inflammatories (NSAID); Z79.52 Long term (current) use of systemic steroids; Z79.899 Other long term (current) drug therapy
CPT/HCPCS: 74176; 80048; 80076; 83605; 83690; 85025; 93041; 96374; 99215; 99284; J1885

== ENCOUNTER → 2024-11-03 | Outpatient (CLI) | payer OTHER ==
[~2024-11-03] VITALS: Ht 162.6 cm; Wt 75.9 kg
[~2024-11-03] MED LIST changes: +ABATACEPT 750 MG OVER 30 MINUTES IV ONE; +ACETAMINOPHEN 650MG PO PRIOR TO INFUSION PO ONE; +ALBUTEROL SULFATE 2.5MG/0.5ML INH NEB SOLN INH PRN; +EPINEPHrine INJ 1 MG/ML 1ML AMP IM PRN; +FLOM0.4C39 PO; +KETO10TAB PO; +diphenhydrAMINE 50MG PO PRIOR TO INFUSION PO ONE; +diphenhydrAMINE 50MG/ML VIAL IV PRN; +methylPREDNISolone 125MG 2ML VIAL IV PRN
[2024-11-03 12:00] VITALS: BP 142/80; O2SAT 99
[2024-11-03] MEDS: ACETAMINOPHEN 650 MG PO ONE (12:14)
[2024-11-03] MEDS: diphenhydrAMINE 25MG CAP PO ONE (12:14)
[2024-11-03] MEDS: ABATACEPT 750 MG OVER 30 MINUTES IV ONE (13:02)
[2024-11-03 13:20] VITALS: BP 137/74; O2SAT 99
== END ==
LOC: M INFU 11-01 11:19
PROVIDERS: ATTEND Internal Medicine
DX: M05.9 Rheumatoid arthritis with rheumatoid factor, unspecified (principal); Z88.8 Allergy status to other drugs, medicaments and biological substances
CPT/HCPCS: 96365; J0129

== ENCOUNTER → 2024-11-10 | Outpatient (CLI) | payer OTHER ==
[~2024-11-10] MED LIST changes: -ABATACEPT 750 MG OVER 30 MINUTES IV ONE; -ACETAMINOPHEN 650MG PO PRIOR TO INFUSION PO ONE; -ALBUTEROL SULFATE 2.5MG/0.5ML INH NEB SOLN INH PRN; -EPINEPHrine INJ 1 MG/ML 1ML AMP IM PRN; -diphenhydrAMINE 50MG PO PRIOR TO INFUSION PO ONE; -diphenhydrAMINE 50MG/ML VIAL IV PRN; -methylPREDNISolone 125MG 2ML VIAL IV PRN
[2024-11-10 18:33] LABS: BASO % 0.4 % (0.0-1.0); EOS % 0.1 % (0.0-3.0); HEMATOCRIT 35.8 % (36.0-47.0); HEMOGLOBIN 11.5 g/dl (12.0-15.5); LYMPH # 1.6 10^3/uL (1.5-5.0); LYMPH % 17.3 % (24.0-44.0); MEAN CORPUSCULAR HEMOGLOBIN 27.8 pg (27.0-33.0); MEAN CORPUSCULAR HGB CONC 32.1 g/dl (32.0-36.5); MEAN CORPUSCULAR VOLUME 86.7 fl (80.0-96.0); MONO % 10.8 % (2.0-8.0); NEUTROPHILS # 6.7 10^3/uL (1.5-8.5); NEUTROPHILS % 71.1 % (36.0-66.0); PLATELET COUNT, AUTOMATED 466 10^3/uL (150-450); RED BLOOD COUNT 4.13 10^6/uL (4.00-5.40); WHITE BLOOD COUNT 9.4 10^3/uL (4.0-10.0)
[2024-11-10 18:43] LABS: ERYTHROCYTE SEDIMENTATION RATE 118 mm/hr (0-20)
[2024-11-10 19:07] LABS: ALBUMIN 2.8 G/DL (3.2-5.2); ALKALINE PHOSPHATASE 109 U/L (35-104); ALT/SGPT 19 U/L (7.0-40); AST/SGOT 11 U/L (<34); BILIRUBIN,DIRECT 0.3 MG/DL (<0.4); BILIRUBIN,TOTAL 0.8 MG/DL (0.3-1.2); BLOOD UREA NITROGEN 11 MG/DL (9-23); CALCIUM LEVEL 8.8 MG/DL (8.5-10.1); CARBON DIOXIDE LEVEL 26 MMOL/L (20-31); CHLORIDE LEVEL 103 MMOL/L (98-107); CREATININE FOR GFR 0.78 MG/DL (0.55-1.30); GLOMERULAR FILTRATION RATE > 60.0 (>58); GLUCOSE, FASTING 154 MG/DL (60-100); POTASSIUM SERUM 4.4 MMOL/L (3.5-5.1); SODIUM LEVEL 139 MMOL/L (136-145); TOTAL PROTEIN 6.7 G/DL (5.7-8.2)
== END ==
LOC: M LAB 17:48
PROVIDERS: ATTEND Internal Medicine
DX: M05.9 Rheumatoid arthritis with rheumatoid factor, unspecified (principal)

== ENCOUNTER → 2024-12-01 | Outpatient (CLI) | payer OTHER | LOC: M RAD 12:51 | PROVIDERS: ATTEND Physician Assistant | DX: R06.02 Shortness of breath (principal) ==

== ENCOUNTER 2024-12-06 12:57 | Outpatient (CLI) | payer OTHER ==
[~2024-12-06] VITALS: Ht 162.6 cm; Wt 75.0 kg
[~2024-12-06 12:57] MED LIST changes: +ALBUTEROL SULFATE 2.5MG/0.5ML INH CONCENTRATE NEB SOLN INH PRN; +EPINEPHrine INJ 1 MG/ML 1ML AMP IM PRN; -FLOM0.4C39 PO; +TAMS-18 PO; +diphenhydrAMINE 50MG/ML VIAL IV PRN; +methylPREDNISolone 125MG 2ML VIAL IV PRN
[2024-12-06] MEDS ORDERED: diphenhydrAMINE 50MG CAP PO ONE (13:00)
[2024-12-06] MEDS ORDERED: ACETAMINOPHEN 650 MG PO ONE (13:00)
[2024-12-06 13:20] VITALS: BP 113/71; O2SAT 100
[2024-12-06] MEDS: ABATACEPT 750 MG OVER 30 MINUTES IV ONE (14:02)
[2024-12-06 14:33] VITALS: BP 121/70; O2SAT 97
== END 2024-12-06 14:40 ==
LOC: M INFU 12:57
PROVIDERS: ATTEND Internal Medicine
DX: M05.9 Rheumatoid arthritis with rheumatoid factor, unspecified (principal); Z88.8 Allergy status to other drugs, medicaments and biological substances
CPT/HCPCS: 96365; J0129

== ENCOUNTER → 2024-12-12 | Outpatient (CLI) | payer OTHER ==
[~2024-12-12] MED LIST changes: -ALBUTEROL SULFATE 2.5MG/0.5ML INH CONCENTRATE NEB SOLN INH PRN; -EPINEPHrine INJ 1 MG/ML 1ML AMP IM PRN; -diphenhydrAMINE 50MG/ML VIAL IV PRN; -methylPREDNISolone 125MG 2ML VIAL IV PRN
[2024-12-12 11:13] LABS: HEMATOCRIT 36.3 % (36.0-47.0); HEMOGLOBIN 11.6 g/dl (12.0-15.5); MEAN CORPUSCULAR HEMOGLOBIN 27.2 pg (27.0-33.0); PLATELET COUNT, AUTOMATED 374 10^3/uL (150-450); RED BLOOD COUNT 4.27 10^6/uL (4.00-5.40); WHITE BLOOD COUNT 7.1 10^3/uL (4.0-10.0)
[2024-12-12 11:40] LABS: BLOOD UREA NITROGEN 15 MG/DL (9-23); CALCIUM LEVEL 8.6 MG/DL (8.5-10.1); CARBON DIOXIDE LEVEL 27 MMOL/L (20-31); CHLORIDE LEVEL 104 MMOL/L (98-107); CHOLESTEROL LEVEL 144 MG/DL (<200); CHOLESTEROL RISK RATIO 2.16 (<5); CREATININE FOR GFR 0.62 MG/DL (0.55-1.30); GLOMERULAR FILTRATION RATE > 90.0 (>58); GLUCOSE, FASTING 140 MG/DL (60-100); HDL CHOLESTEROL 66.6 MG/DL (>40); LDL CHOLESTEROL 65.8 MG/DL (<100); MAGNESIUM LEVEL 1.4 MG/DL (1.8-2.4); NON-HDL-C 77.4 MG/DL; POTASSIUM SERUM 4.5 MMOL/L (3.5-5.1); SODIUM LEVEL 141 MMOL/L (136-145); TRIGLYCERIDES LEVEL 58 MG/DL (<150)
== END ==
LOC: M LAB 10:27
PROVIDERS: ATTEND Internal Medicine Cardiovascular Disease
DX: I25.810 Atherosclerosis of coronary artery bypass graft(s) without angina pectoris (principal)

== ENCOUNTER → 2024-12-12 | Outpatient (CLI) | payer OTHER ==
[2024-12-12 11:12] LABS: BASO # 0.1 10^3/uL (0.0-0.2); BASO % 0.7 % (0.0-1.0); EOS # 0.2 10^3/uL (0.0-0.5); EOS % 2.7 % (0.0-3.0); HEMATOCRIT 36.9 % (36.0-47.0); HEMOGLOBIN 11.5 g/dl (12.0-15.5); LYMPH # 2.1 10^3/uL (1.5-5.0); LYMPH % 28.8 % (24.0-44.0); MEAN CORPUSCULAR HEMOGLOBIN 26.8 pg (27.0-33.0); MEAN CORPUSCULAR HGB CONC 31.2 g/dl (32.0-36.5); MONO # 0.6 10^3/uL (0.0-0.8); MONO % 8.2 % (2.0-8.0); NEUTROPHILS # 4.4 10^3/uL (1.5-8.5); NEUTROPHILS % 58.9 % (36.0-66.0); PLATELET COUNT, AUTOMATED 387 10^3/uL (150-450); RED BLOOD COUNT 4.29 10^6/uL (4.00-5.40); WHITE BLOOD COUNT 7.4 10^3/uL (4.0-10.0)
[2024-12-12 11:25] LABS: ERYTHROCYTE SEDIMENTATION RATE 70 mm/hr (0-20)
[2024-12-12 11:41] LABS: ALBUMIN 3.5 G/DL (3.2-5.2); ALKALINE PHOSPHATASE 118 U/L (35-104); ALT/SGPT 24 U/L (7.0-40); AST/SGOT 16 U/L (<34); BILIRUBIN,DIRECT 0.1 MG/DL (<0.4); BILIRUBIN,TOTAL 0.5 MG/DL (0.3-1.2); BLOOD UREA NITROGEN 15 MG/DL (9-23); CALCIUM LEVEL 9.1 MG/DL (8.5-10.1); CARBON DIOXIDE LEVEL 28 MMOL/L (20-31); CHLORIDE LEVEL 104 MMOL/L (98-107); CREATININE FOR GFR 0.63 MG/DL (0.55-1.30); GLOMERULAR FILTRATION RATE > 90.0 (>58); GLUCOSE, FASTING 138 MG/DL (60-100); POTASSIUM SERUM 4.5 MMOL/L (3.5-5.1); SODIUM LEVEL 142 MMOL/L (136-145); TOTAL PROTEIN 7.1 G/DL (5.7-8.2)
== END ==
LOC: M LAB 10:31
PROVIDERS: ATTEND Internal Medicine
DX: M05.9 Rheumatoid arthritis with rheumatoid factor, unspecified (principal)

== ENCOUNTER 2024-12-19 11:33 | Observation (INO) | payer MEDICAID, OTHER ==
[~2024-12-19] VITALS: Ht 165.1 cm; Wt 80.6 kg
[2024-12-19] MEDS: NS 500 ML IV ONE ×2 (12:10→12:50)
[2024-12-19 12:13] LABS: BASO # 0.1 10^3/uL (0.0-0.2); BASO % 0.5 % (0.0-1.0); EOS # 0.1 10^3/uL (0.0-0.5); EOS % 0.6 % (0.0-3.0); HEMATOCRIT 36.5 % (36.0-47.0); HEMOGLOBIN 11.8 g/dl (12.0-15.5); LYMPH # 1.2 10^3/uL (1.5-5.0); LYMPH % 9.9 % (24.0-44.0); MEAN CORPUSCULAR HEMOGLOBIN 27.3 pg (27.0-33.0); MEAN CORPUSCULAR HGB CONC 32.3 g/dl (32.0-36.5); MEAN CORPUSCULAR VOLUME 84.5 fl (80.0-96.0); MONO # 0.9 10^3/uL (0.0-0.8); MONO % 7.6 % (2.0-8.0); NEUTROPHILS # 9.4 10^3/uL (1.5-8.5); PLATELET COUNT, AUTOMATED 366 10^3/uL (150-450); RED BLOOD COUNT 4.32 10^6/uL (4.00-5.40); WHITE BLOOD COUNT 11.7 10^3/uL (4.0-10.0)
[2024-12-19 12:37] LABS: CK-MB VALUE MASS < 1.0 NG/ML (<3.6)
[2024-12-19 12:38] LABS: VENOUS BASE EXCESS -0.8 (-2.0-2.0); VENOUS HCO3 23.5 MMOL/L (23.0-27.0); VENOUS PARTIAL PRESSURE CO2 37.7 mmHg (38.0-50.0); VENOUS PARTIAL PRESSURE O2 35.9 mmHg (30.0-50.0); VENOUS PH 7.412 UNITS (7.330-7.430); VENOUS STANDARD HCO3 23.2 MMOL/L; VENOUS TOTAL CO2 24.6 MMOL/L (24.0-28.0)
[2024-12-19 12:38] LABS: LIPASE 21 U/L (12-53)
[2024-12-19 12:40] LABS: ALBUMIN 3.4 G/DL (3.2-5.2); ALKALINE PHOSPHATASE 108 U/L (35-104); ALT/SGPT 18 U/L (7.0-40); AST/SGOT 11 U/L (<34); BILIRUBIN,DIRECT 0.3 MG/DL (<0.4); BILIRUBIN,TOTAL 0.9 MG/DL (0.3-1.2); BLOOD UREA NITROGEN 14 MG/DL (9-23); CALCIUM LEVEL 8.7 MG/DL (8.5-10.1); CARBON DIOXIDE LEVEL 24 MMOL/L (20-31); CHLORIDE LEVEL 102 MMOL/L (98-107); CPK CREATINE PHOSPHOKINASE 38 U/L (34-145); CREATININE FOR GFR 0.59 MG/DL (0.55-1.30); GLOMERULAR FILTRATION RATE > 90.0 (>58); GLUCOSE, FASTING 169 MG/DL (60-100); MB/CK RELATIVE INDEX 2.63 (< OR =4); POTASSIUM SERUM 3.8 MMOL/L (3.5-5.1); SODIUM LEVEL 138 MMOL/L (136-145); TOTAL PROTEIN 6.8 G/DL (5.7-8.2)
[2024-12-19 12:42] LABS: FREE T4 1.23 NG/DL (0.89-1.76); THYROID STIMULATING HORMONE 2.344 uIU/ML (0.55-4.78)
[2024-12-19] MEDS: ONDANSETRON 4MG 2ML VIAL IV ONE ×2 (12:50→17:13)
[2024-12-19 13:03] LABS: MAGNESIUM LEVEL 1.2 MG/DL (1.8-2.4); PHOSPHORUS LEVEL 2.6 MG/DL (2.5-4.9)
[2024-12-19 13:04] LABS: HEMOGLOBIN A1c 7.9 % (4.0-6.0)
[2024-12-19 13:05] LABS: ACETONE/KETONE 0.27 MMOL/L (0.02-0.27)
[2024-12-19] MEDS: MAG SULF 1GM/100ML (MAG RUN) 1 GM in IV 1 EA IV ONE (13:24)
[2024-12-19] MEDS ORDERED: ISOVUE-370 76% 100 ML VIAL As Ordered ONE (13:35)
[2024-12-19 13:37] LABS: KETONE, URINE AUTO RFX TRACE mg/dL (NEGATIVE); MUCUS, URINE RFX SMALL (NEGATIVE); NITRITE, URINE AUTO RFX NEGATIVE (NEGATIVE); RBC, URINE AUTO RFX 1 /HPF (0-3); SQUAM EPITHELIAL CELL UR AURFX 3 /HPF (0-6); WBC, URINE AUTO RFX 7 /HPF (0-3)
[2024-12-19 13:38] LABS: LEUKOCYTE ESTERASE UR AUTO RFX TRACE (NEGATIVE)
[2024-12-19 13:54] LABS: CK-MB VALUE MASS < 1.0 NG/ML (<3.6)
[2024-12-19 13:55] LABS: CPK CREATINE PHOSPHOKINASE 37 U/L (34-145)
[2024-12-19] MEDS ORDERED: METO1TAB7 PO (15:05)
[2024-12-19] MEDS ORDERED: ASPI-226 PO (15:05)
[2024-12-19] MEDS ORDERED: FOLI1TAB11 PO (15:05)
[2024-12-19] MEDS ORDERED: ATOR40TA75 PO (15:05)
[2024-12-19] MEDS: NS (Normal Saline) 0.9% 1,000 ML IV ONE (15:12)
[2024-12-19 15:13] VITALS: BP 137/72
[2024-12-19] MEDS: METOPROLOL SUCC. 50 MG *XL* TAB PO ONE (15:13)
[2024-12-19] MEDS ORDERED: HOME MED LIST COMPLETE! XX SCH (18:25)
[2024-12-19] MEDS ORDERED: ALPRAZolam 0.25 MG TAB PO PRN (21:45)
[2024-12-19] MEDS ORDERED: METOCLOPRAMIDE 10 MG TAB PO PRN (21:45)
[2024-12-19] MEDS ORDERED: MAALOX 30 ML SUSP *UDC PO PRN (21:45)
[2024-12-19] MEDS ORDERED: GLUCOSE 4 GM CHEW PO PRN (21:50)
[2024-12-19] MEDS ORDERED: ACETAMINOPHEN 500 MG TAB PO PRN (21:50)
[2024-12-19] MEDS ORDERED: DEXTROSE 50% 50 ML SYRINGE IV PRN (21:50)
[2024-12-19] MEDS ORDERED: ACETAMINOPHEN 325 MG TAB PO PRN (21:50)
[2024-12-19] MEDS ORDERED: GLUCAGON INJ 1 MG VIAL SC PRN (21:50)
[2024-12-19] MEDS: ONDANSETRON 4MG ORAL DISINTEGRATING TAB PO PRN (22:36)
[2024-12-19] MEDS: KETOROLAC 30 MG/ML 1 ML VIAL IV PRN (22:37)
[2024-12-19] MEDS: INSULIN LISPRO (NovoLOG) PER UNIT SC SCH (23:50)
[2024-12-20] MEDS: ATORVASTATIN 20 MG TAB PO SCH (00:59)
[2024-12-20] MEDS: MAGNESIUM OXIDE 400 MG TAB PO ONE (01:00)
[2024-12-20 05:25] LABS: HEMATOCRIT 29.6 % (36.0-47.0); HEMOGLOBIN 9.5 g/dl (12.0-15.5); MEAN CORPUSCULAR HEMOGLOBIN 27.1 pg (27.0-33.0); MEAN CORPUSCULAR HGB CONC 32.1 g/dl (32.0-36.5); MEAN CORPUSCULAR VOLUME 84.6 fl (80.0-96.0); PLATELET COUNT, AUTOMATED 308 10^3/uL (150-450); WHITE BLOOD COUNT 8.6 10^3/uL (4.0-10.0)
[2024-12-20 06:55] LABS: ALBUMIN 2.5 G/DL (3.2-5.2); ALKALINE PHOSPHATASE 81 U/L (35-104); ALT/SGPT 11 U/L (7.0-40); AST/SGOT 9 U/L (<34); BILIRUBIN,TOTAL 0.8 MG/DL (0.3-1.2); BLOOD UREA NITROGEN 14 MG/DL (9-23); CALCIUM LEVEL 7.3 MG/DL (8.5-10.1); CARBON DIOXIDE LEVEL 23 MMOL/L (20-31); CHLORIDE LEVEL 104 MMOL/L (98-107); CREATININE FOR GFR 0.72 MG/DL (0.55-1.30); GLOMERULAR FILTRATION RATE > 90.0 (>58); GLUCOSE, FASTING 178 MG/DL (60-100); POTASSIUM SERUM 4.1 MMOL/L (3.5-5.1); SODIUM LEVEL 138 MMOL/L (136-145); TOTAL PROTEIN 5.3 G/DL (5.7-8.2)
[2024-12-20 07:06] VITALS: TEMP 97.8
[2024-12-20] MEDS: METOPROLOL TART 25 MG TABLET PO SCH (07:14)
[2024-12-20 07:31] LABS: PROCALCITONIN 0.73 ng/ml
[2024-12-20] MEDS: INSULIN LISPRO (NovoLOG) PER UNIT SC SCH (08:37)
[2024-12-20] MEDS: FAMOTIDINE 20 MG TAB PO SCH (08:38)
[2024-12-20] MEDS: ASPIRIN 81 MG ENTERIC TABLET PO SCH (08:38)
[2024-12-20] MEDS: FOLIC ACID 1 MG TAB PO SCH (08:39)
[2024-12-20] MEDS: ENOXAPARIN 40 MG/0.4 ML SYRINGE (J1650 PER 10MG) SC SCH (08:41)
[2024-12-20 12:00] VITALS: BP 129/79; O2SAT 96
[2024-12-21] MEDS ORDERED: ARNU1INH INH (15:46)
== END 2024-12-20 11:45 | disposition home or self-care (01) ==
LOC: EDBD 11:33 → M ED 11:33 → M ED INP 11:34
PROVIDERS: ADMIT Student in an Organized Health Care Education/Training Program; ATTEND Student in an Organized Health Care Education/Training Program
DX: R00.0 Tachycardia, unspecified (principal); J90 Pleural effusion, not elsewhere classified; I97.89 Other postprocedural complications and disorders of the circulatory system, not elsewhere classified; R07.89 Other chest pain; M25.512 Pain in left shoulder; M19.012 Primary osteoarthritis, left shoulder; E83.42 Hypomagnesemia; E10.9 Type 1 diabetes mellitus without complications; Z96.41 Presence of insulin pump (external) (internal); G90.A Postural orthostatic tachycardia syndrome [POTS]; I10 Essential (primary) hypertension; M06.9 Rheumatoid arthritis, unspecified; Z95.1 Presence of aortocoronary bypass graft; D64.9 Anemia, unspecified; E86.1 Hypovolemia; R06.02 Shortness of breath; R11.0 Nausea; R68.83 Chills (without fever); M25.511 Pain in right shoulder; Z98.891 History of uterine scar from previous surgery; Z82.49 Family history of ischemic heart disease and other diseases of the circulatory system; Z83.6 Family history of other diseases of the respiratory system; Z80.8 Family history of malignant neoplasm of other organs or systems; I25.10 Atherosclerotic heart disease of native coronary artery without angina pectoris; Z88.8 Allergy status to other drugs, medicaments and biological substances; Z79.899 Other long term (current) drug therapy; Z79.52 Long term (current) use of systemic steroids; Z79.82 Long term (current) use of aspirin

== ENCOUNTER 2024-12-21 09:20 | Inpatient (IN) | payer OTHER ==
[~2024-12-21] VITALS: Ht 165.1 cm; Wt 76.3 kg
[~2024-12-21 09:20] MED LIST changes: +ASPI-226 PO; +ATOR40TA75 PO; +FOLI1TAB11 PO; +METO1TAB7 PO
[2024-12-21 10:22] LABS: VENOUS BASE EXCESS -1.1 (-2.0-2.0); VENOUS HCO3 23.9 MMOL/L (23.0-27.0); VENOUS O2 SATURATION 64.5 % (60.0-80.0); VENOUS PARTIAL PRESSURE CO2 41.2 mmHg (38.0-50.0); VENOUS PARTIAL PRESSURE O2 33.4 mmHg (30.0-50.0); VENOUS PH 7.382 UNITS (7.330-7.430); VENOUS STANDARD HCO3 22.9 MMOL/L; VENOUS TOTAL CO2 25.2 MMOL/L (24.0-28.0)
[2024-12-21 10:25] LABS: BASO % 0.3 % (0.0-1.0); EOS % 0.2 % (0.0-3.0); HEMATOCRIT 39.2 % (36.0-47.0); LYMPH % 8.5 % (24.0-44.0); MEAN CORPUSCULAR HEMOGLOBIN 26.5 pg (27.0-33.0); MEAN CORPUSCULAR HGB CONC 31.1 g/dl (32.0-36.5); MEAN CORPUSCULAR VOLUME 85.2 fl (80.0-96.0); MONO % 8.1 % (2.0-8.0); NEUTROPHILS # 10.1 10^3/uL (1.5-8.5); NEUTROPHILS % 82.5 % (36.0-66.0); PLATELET COUNT, AUTOMATED 414 10^3/uL (150-450); WHITE BLOOD COUNT 12.2 10^3/uL (4.0-10.0)
[2024-12-21 10:26] LABS: HEMOGLOBIN 12.2 g/dl (12.0-15.5)
[2024-12-21 10:32] LABS: CK-MB VALUE MASS < 1.0 NG/ML (<3.6)
[2024-12-21 10:33] LABS: ETHYL ALCOHOL (ETHANOL) < 0.003 % (0.000-0.010); LIPASE 18 U/L (12-53)
[2024-12-21 10:55] LABS: ALKALINE PHOSPHATASE 104 U/L (35-104); ALT/SGPT 17 U/L (7.0-40); AST/SGOT 19 U/L (<34); BILIRUBIN,DIRECT 0.3 MG/DL (<0.4); BLOOD UREA NITROGEN 10 MG/DL (9-23); CARBON DIOXIDE LEVEL 22 MMOL/L (20-31); CHLORIDE LEVEL 105 MMOL/L (98-107); CPK CREATINE PHOSPHOKINASE 67 U/L (34-145); GLOMERULAR FILTRATION RATE > 90.0 (>58); GLUCOSE, FASTING 178 MG/DL (60-100); MB/CK RELATIVE INDEX 1.49 (< OR =4); POTASSIUM SERUM 4.5 MMOL/L (3.5-5.1); SODIUM LEVEL 140 MMOL/L (136-145); TOTAL PROTEIN 6.9 G/DL (5.7-8.2)
[2024-12-21 11:20] LABS: HEMOGLOBIN A1c 7.9 % (4.0-6.0)
[2024-12-21 11:47] LABS: AMPHETAMINES LEVEL URINE NEGATIVE (NEGATIVE); BARBITURATES URINE NEGATIVE (NEGATIVE); BENZODIAZEPINES URINE NEGATIVE (NEGATIVE); CANNABINOIDS URINE NEGATIVE (NEGATIVE); COCAINE METABOLITE URINE NEGATIVE (NEGATIVE); METHADONE URINE NEGATIVE (NEGATIVE); OPIATES URINE NEGATIVE (NEGATIVE); PHENCYCLIDINE URINE NEGATIVE (NEGATIVE)
[2024-12-21 11:50] LABS: CK-MB VALUE MASS < 1.0 NG/ML (<3.6)
[2024-12-21 11:55] LABS: CPK CREATINE PHOSPHOKINASE 49 U/L (34-145); MB/CK RELATIVE INDEX 2.04 (< OR =4)
[2024-12-21 12:08] LABS: OSMOLALITY SERUM 300 MOSM/KG (275-295)
[2024-12-21 12:35] LABS: ACETONE/KETONE 1.84 MMOL/L (0.02-0.27)
[2024-12-21] MEDS ORDERED: PERCOCET 5MG/325MG TAB PO PRN ×2 (12:50)
[2024-12-21] MEDS ORDERED: BISACODYL 10MG SUPP PR PRN (12:50)
[2024-12-21] MEDS ORDERED: ACETAMINOPHEN 325 MG TAB PO PRN (12:50)
[2024-12-21] MEDS: KETOROLAC 30 MG/ML 1ML VIAL IV SCH (13:13)
[2024-12-21 13:29] LABS: ABG BASE EXCESS 1.2 (-2.0-2.0); ABG O2 SATURATION 98.9 % (95.0-99.0); ABG PARTIAL PRESSURE O2 167.5 mmHg (75.0-100.0); ABG STANDARD HCO3 25.5 MMOL/L. (22.0-26.0); ABG pH (ARTERIAL) 7.493 UNITS (7.350-7.450)
[2024-12-21 13:33] LABS: LDH LACTATE DEHYDROGENASE 240 U/L (120-246)
[2024-12-21 13:50] VITALS: BP 130/76; TEMP 98.5; O2SAT 97
[2024-12-21] MEDS ORDERED: INSULIN PUMP (PATIENT'S OWN MED) XX SCH (13:55)
[2024-12-21] MEDS: LEVALBUTEROL 1.25 MG 0.5ML CONCENTRATE NEB NEB SCH (14:00)
[2024-12-21] MEDS ORDERED: INSULIN PUMP (PATIENT'S OWN MED) SQ SA SCH (14:24)
[2024-12-21 15:04] LABS: PH BODY FLUID 7.507 UNITS (NOT ESTABLISHED); SOURCE, BODY FLUID pH PLEURAL
[2024-12-21 15:06] LABS: APPEARANCE, BODY FLUID CLOUDY (CLEAR); PLEURAL FL COLOR YELLOW (COLORLESS); SOURCE, BODY FLUID PLEURAL
[2024-12-21 15:23] LABS: SOURCE, BODY FLUID ALBUMIN PLEURAL
[2024-12-21 15:28] LABS: SOURCE, BODY FLUID GLUCOSE PLEURAL; SOURCE, BODY FLUID TRIG PLEURAL; TRIGLYCERIDE, BODY FLUID 33 MG/DL (NOT ESTABLISHED)
[2024-12-21 15:29] LABS: LDH, BODY FLUID 215 U/L (NOT ESTABLISHED); SOURCE, BODY FLUID LDH PLEURAL
[2024-12-21 15:30] LABS: AMYLASE, BODY FLUID 46 U/L (NOT ESTABLISHED); CHOLESTEROL, BODY FLUID 75 MG/DL (NOT ESTABLISHED); SOURCE, BODY FLUID AMYLASE PLEURAL; SOURCE, BODY FLUID CHOL PLEURAL
[2024-12-21 15:44] LABS: SOURCE, BODY FLUID TOT PROTEIN PLEURAL; TOTAL PROTEIN, BODY FLUID 4.3 G/DL (NOT ESTABLISHED)
[2024-12-21] MEDS ORDERED: ARNU1INH INH (15:46)
[2024-12-21] MEDS ORDERED: HOME MED LIST COMPLETE! XX SCH (15:50)
[2024-12-21 15:58] VITALS: BP 121/55; TEMP 98; O2SAT 96
[2024-12-21] MEDS: NS (Normal Saline) 0.9% 1,000 ML IV SCH (19:53)
[2024-12-21] MEDS: ONDANSETRON 4MG 2ML VIAL IV ONE (20:01)
[2024-12-21] MEDS: DOCUSATE SODIUM 100MG CAPSULE PO SCH (20:01)
[2024-12-21 20:22] VITALS: BP 110/58; TEMP 98.1; O2SAT 100
[2024-12-21 23:36] VITALS: BP 113/63; TEMP 98; O2SAT 98
[2024-12-22 03:54] VITALS: BP 113/60; TEMP 97.8; O2SAT 94
[2024-12-22] MEDS: ONDANSETRON 4MG 2ML VIAL IV ONE (04:05)
[2024-12-22 05:27] LABS: BASO % 0.3 % (0.0-1.0); EOS # 0.1 10^3/uL (0.0-0.5); EOS % 1.2 % (0.0-3.0); LYMPH # 0.9 10^3/uL (1.5-5.0); LYMPH % 12.9 % (24.0-44.0); MEAN CORPUSCULAR HEMOGLOBIN 26.5 pg (27.0-33.0); MEAN CORPUSCULAR HGB CONC 31.4 g/dl (32.0-36.5); MEAN CORPUSCULAR VOLUME 84.5 fl (80.0-96.0); MONO # 0.8 10^3/uL (0.0-0.8); NEUTROPHILS # 5.1 10^3/uL (1.5-8.5); PLATELET COUNT, AUTOMATED 341 10^3/uL (150-450); RED BLOOD COUNT 3.43 10^6/uL (4.00-5.40); WHITE BLOOD COUNT 6.9 10^3/uL (4.0-10.0)
[2024-12-22 05:37] LABS: HEMOGLOBIN 9.1 g/dl (12.0-15.5)
[2024-12-22 05:48] LABS: ABG BASE EXCESS -1.2 (-2.0-2.0); ABG HCO3 22.7 MMOL/L (22.0-26.0); ABG O2 SATURATION 98.7 % (95.0-99.0); ABG PARTIAL PRESSURE CO2 34.8 mmHg (35.0-45.0); ABG PARTIAL PRESSURE O2 156.9 mmHg (75.0-100.0); ABG STANDARD HCO3 23.5 MMOL/L. (22.0-26.0); ABG TOTAL CO2 23.8 MMOL/L (22.0-29.0); ABG pH (ARTERIAL) 7.433 UNITS (7.350-7.450)
[2024-12-22 05:49] LABS: BLOOD UREA NITROGEN 16 MG/DL (9-23); CALCIUM LEVEL 7.9 MG/DL (8.5-10.1); CARBON DIOXIDE LEVEL 25 MMOL/L (20-31); CHLORIDE LEVEL 109 MMOL/L (98-107); CREATININE FOR GFR 0.83 MG/DL (0.55-1.30); GLOMERULAR FILTRATION RATE > 90.0 (>58); GLUCOSE, FASTING 86 MG/DL (60-100); POTASSIUM SERUM 3.9 MMOL/L (3.5-5.1); SODIUM LEVEL 143 MMOL/L (136-145)
[2024-12-22] MEDS: LEVALBUTEROL 1.25 MG 0.5ML CONCENTRATE NEB NEB PRN (07:32)
[2024-12-22 07:38] VITALS: BP 117/62; TEMP 99.8; O2SAT 100
[2024-12-22] MEDS: LEVALBUTEROL 0.63 MG/3 ML INH SCH (08:01)
[2024-12-22] MEDS: FLUTICASONE HFA 220 MCG 12 GM INHALER INH SCH (08:02)
[2024-12-22] MEDS: PANTOPRAZOLE 40MG TAB (PROTONIX) PO SCH (08:20)
[2024-12-22] MEDS: predniSONE 5 MG TAB PO SCH (08:20)
[2024-12-22] MEDS: METOPROLOL SUCC (TopROL XL) 50MG **XL** TAB PO SCH (08:21)
[2024-12-22] MEDS: COLCHICINE 0.6 MG TABLET PO SCH (08:21)
[2024-12-22] MEDS: MOM 30ML SUSPENSION UDC PO SCH (08:22)
[2024-12-22] MEDS: FOLIC ACID 1MG TAB PO SCH (08:22)
[2024-12-22] MEDS: ASPIRIN 81MG ENTERIC TABLET PO SCH (12:07)
[2024-12-22 12:10] VITALS: BP 121/64; TEMP 97; O2SAT 98
[2024-12-22 12:47] LABS: IRON (FE) 5 UG/DL (50-170); PERCENT SATURATION 2.3 % (13.2-45.0); TOTAL IRON BINDING CAPACITY 213 UG/DL (250-425)
[2024-12-22 12:50] LABS: FERRITIN 79.2 NG/ML (7.3-270.7)
[2024-12-22 15:42] VITALS: BP 117/61; TEMP 97.2; O2SAT 99
[2024-12-22 19:38] VITALS: BP 117/56; TEMP 97.8; O2SAT 100
[2024-12-22] MEDS: ATORVASTATIN 20 MG TAB PO SCH (22:02)
[2024-12-22 23:42] VITALS: BP 119/61; TEMP 97.4; O2SAT 99
[2024-12-23 03:55] VITALS: BP 115/66; TEMP 98.2; O2SAT 97
[2024-12-23 05:30] LABS: BASO % 0.5 % (0.0-1.0); EOS # 0.2 10^3/uL (0.0-0.5); EOS % 3.4 % (0.0-3.0); HEMATOCRIT 27.9 % (36.0-47.0); HEMOGLOBIN 8.8 g/dl (12.0-15.5); LYMPH # 1.1 10^3/uL (1.5-5.0); LYMPH % 19.5 % (24.0-44.0); MEAN CORPUSCULAR HEMOGLOBIN 27.2 pg (27.0-33.0); MEAN CORPUSCULAR HGB CONC 31.5 g/dl (32.0-36.5); MEAN CORPUSCULAR VOLUME 86.4 fl (80.0-96.0); MONO # 0.6 10^3/uL (0.0-0.8); MONO % 9.4 % (2.0-8.0); NEUTROPHILS # 3.9 10^3/uL (1.5-8.5); NEUTROPHILS % 66.7 % (36.0-66.0); PLATELET COUNT, AUTOMATED 356 10^3/uL (150-450); RED BLOOD COUNT 3.23 10^6/uL (4.00-5.40); WHITE BLOOD COUNT 5.9 10^3/uL (4.0-10.0)
[2024-12-23 05:31] LABS: BLOOD UREA NITROGEN 19 MG/DL (9-23); CALCIUM LEVEL 7.8 MG/DL (8.5-10.1); CARBON DIOXIDE LEVEL 26 MMOL/L (20-31); CHLORIDE LEVEL 109 MMOL/L (98-107); CREATININE FOR GFR 0.75 MG/DL (0.55-1.30); GLOMERULAR FILTRATION RATE > 90.0 (>58); GLUCOSE, FASTING 77 MG/DL (60-100); SODIUM LEVEL 143 MMOL/L (136-145)
[2024-12-23 07:34] VITALS: BP 124/64; TEMP 97.6; O2SAT 98
[2024-12-23 11:42] LABS: IRON (FE) 8 UG/DL (50-170)
[2024-12-23 11:46] VITALS: BP 114/58; TEMP 97.8; O2SAT 99
[2024-12-23] MEDS: FUROSEMIDE 40MG/4ML VIAL IV ONE (12:01)
[2024-12-23 16:10] VITALS: BP 123/60; TEMP 97.9; O2SAT 100
[2024-12-23 20:02] VITALS: BP 136/69; TEMP 97.8; O2SAT 100
[2024-12-24 00:07] VITALS: BP 113/59; TEMP 96.9; O2SAT 95
[2024-12-24 03:54] VITALS: BP 128/69; TEMP 97.3; O2SAT 98
[2024-12-24 05:04] LABS: BASO % 0.5 % (0.0-1.0); EOS # 0.2 10^3/uL (0.0-0.5); EOS % 4.3 % (0.0-3.0); HEMATOCRIT 31.3 % (36.0-47.0); HEMOGLOBIN 9.6 g/dl (12.0-15.5); LYMPH # 1.3 10^3/uL (1.5-5.0); LYMPH % 24.1 % (24.0-44.0); MEAN CORPUSCULAR HEMOGLOBIN 26.5 pg (27.0-33.0); MEAN CORPUSCULAR HGB CONC 30.7 g/dl (32.0-36.5); MEAN CORPUSCULAR VOLUME 86.5 fl (80.0-96.0); MONO # 0.5 10^3/uL (0.0-0.8); MONO % 8.8 % (2.0-8.0); NEUTROPHILS # 3.4 10^3/uL (1.5-8.5); NEUTROPHILS % 62.1 % (36.0-66.0); PLATELET COUNT, AUTOMATED 414 10^3/uL (150-450); RED BLOOD COUNT 3.62 10^6/uL (4.00-5.40); WHITE BLOOD COUNT 5.6 10^3/uL (4.0-10.0)
[2024-12-24 05:34] LABS: CALCIUM LEVEL 8.1 MG/DL (8.5-10.1); CREATININE FOR GFR 0.84 MG/DL (0.55-1.30); POTASSIUM SERUM 4.7 MMOL/L (3.5-5.1)
[2024-12-24 07:42] VITALS: BP 126/76; TEMP 97.1; O2SAT 99
[2024-12-24 09:15] VITALS: BP 133/74
[2024-12-24 12:33] VITALS: BP 133/62; TEMP 97.7; O2SAT 100
[2024-12-24] MEDS ORDERED: COLC0.6T47 PO (13:05)
[2024-12-24 15:59] VITALS: BP 124/72; TEMP 97.1; O2SAT 98
== END 2024-12-24 16:40 | disposition home or self-care (01) | DRG 206 ==
LOC: M ED 09:20 → M ED INP 12:49 → M PCU 13:37
PROVIDERS: ADMIT Internal Medicine; ATTEND Internal Medicine Nephrology
PROC: 0W9B30Z Drainage of Left Pleural Cavity with Drainage Device, Percutaneous Approach (ICD-10-PCS; 2024-12-21)
PROC: B246ZZZ Ultrasonography of Right and Left Heart (ICD-10-PCS; principal; 2024-12-22)
DX: I97.89 Other postprocedural complications and disorders of the circulatory system, not elsewhere classified (principal); I31.39 Other pericardial effusion (noninflammatory); J90 Pleural effusion, not elsewhere classified; E10.43 Type 1 diabetes mellitus with diabetic autonomic (poly)neuropathy; E10.42 Type 1 diabetes mellitus with diabetic polyneuropathy; E10.319 Type 1 diabetes mellitus with unspecified diabetic retinopathy without macular edema; G90.A Postural orthostatic tachycardia syndrome [POTS]; M06.9 Rheumatoid arthritis, unspecified; I25.10 Atherosclerotic heart disease of native coronary artery without angina pectoris; J45.909 Unspecified asthma, uncomplicated; E55.9 Vitamin D deficiency, unspecified; M47.812 Spondylosis without myelopathy or radiculopathy, cervical region; F32.A Depression, unspecified; F41.9 Anxiety disorder, unspecified; E78.5 Hyperlipidemia, unspecified; I10 Essential (primary) hypertension; E86.0 Dehydration; R11.2 Nausea with vomiting, unspecified; D64.9 Anemia, unspecified; Y83.8 Other surgical procedures as the cause of abnormal reaction of the patient, or of later complication, without mention of misadventure at the time of the procedure; Z79.82 Long term (current) use of aspirin; Z79.4 Long term (current) use of insulin; Z79.52 Long term (current) use of systemic steroids; Z79.899 Other long term (current) drug therapy; Z95.1 Presence of aortocoronary bypass graft

== ENCOUNTER → 2025-01-01 | Outpatient (CLI) | payer OTHER ==
[~2025-01-01] MED LIST changes: +ARNU1INH INH; +COLC0.6T47 PO
== END ==
LOC: M RAD 16:03
PROVIDERS: ATTEND Physician Assistant
DX: J90 Pleural effusion, not elsewhere classified (principal); I30.9 Acute pericarditis, unspecified

== ENCOUNTER 2025-02-28 12:58 | Outpatient (CLI) | payer OTHER ==
[~2025-02-28] VITALS: Ht 162.6 cm; Wt 78.1 kg
[~2025-02-28 12:58] MED LIST changes: +ALBUTEROL SULFATE 2.5 MG/0.5 ML INH CONCENTRATE NEB SOLN INH PRN; +EPINEPHrine INJ 1 MG/ML 1ML AMP IM PRN; +diphenhydrAMINE 50 MG/ML VIAL IV PRN
[2025-02-28 13:00] VITALS: BP 121/65; O2SAT 99
[2025-02-28] MEDS: ABATACEPT 750 MG OVER 30 MINUTES IV ONE (13:38)
[2025-02-28] MEDS: ACETAMINOPHEN 650 MG PO ONE (13:39)
[2025-02-28 14:38] VITALS: BP 116/70; O2SAT 100
== END 2025-02-28 14:14 ==
LOC: M INFU 12:58
PROVIDERS: ATTEND Internal Medicine
DX: M05.9 Rheumatoid arthritis with rheumatoid factor, unspecified (principal); Z88.8 Allergy status to other drugs, medicaments and biological substances
CPT/HCPCS: 96365; J0129

== ENCOUNTER 2025-03-29 12:45 | Outpatient (CLI) | payer OTHER ==
[~2025-03-29] VITALS: Ht 165.1 cm; Wt 79.5 kg
[2025-03-29 12:40] VITALS: BP 119/69; O2SAT 97
[~2025-03-29 12:45] MED LIST changes: +ACETAMINOPHEN 650 MG PO ONE
[2025-03-29] MEDS: ABATACEPT 750 MG OVER 30 MINUTES IV ONE (13:17)
[2025-03-29 13:55] VITALS: BP 126/59; O2SAT 100
== END 2025-03-29 13:55 | disposition home or self-care (01) ==
LOC: M INFU 12:45
PROVIDERS: ATTEND Internal Medicine
DX: M05.79 Rheumatoid arthritis with rheumatoid factor of multiple sites without organ or systems involvement (principal); Z88.8 Allergy status to other drugs, medicaments and biological substances
CPT/HCPCS: 96365; J0129

== ENCOUNTER → 2025-04-13 | Outpatient (CLI) | payer OTHER ==
[~2025-04-13] MED LIST changes: -ACETAMINOPHEN 650 MG PO ONE; -ALBUTEROL SULFATE 2.5 MG/0.5 ML INH CONCENTRATE NEB SOLN INH PRN; -EPINEPHrine INJ 1 MG/ML 1ML AMP IM PRN; -diphenhydrAMINE 50 MG/ML VIAL IV PRN
[2025-04-13 16:08] LABS: BASO # 0.1 10^3/uL (0.0-0.2); BASO % 0.8 % (0.0-1.0); EOS # 0.1 10^3/uL (0.0-0.5); EOS % 1.0 % (0.0-3.0); LYMPH # 2.0 10^3/uL (1.5-5.0); LYMPH % 25.7 % (24.0-44.0); MONO # 0.8 10^3/uL (0.0-0.8); MONO % 9.8 % (2.0-8.0); NEUTROPHILS # 4.8 10^3/uL (1.5-8.5); NEUTROPHILS % 62.2 % (36.0-66.0); PLATELET COUNT, AUTOMATED 312 10^3/uL (150-450)
[2025-04-13 16:25] LABS: ERYTHROCYTE SEDIMENTATION RATE 32 mm/hr (0-20)
[2025-04-13 17:02] LABS: CALCIUM LEVEL 9.0 MG/DL (8.5-10.1); CARBON DIOXIDE LEVEL 27.2 MMOL/L (20-31); CHLORIDE LEVEL 108 MMOL/L (98-107); CREATININE FOR GFR 0.73 MG/DL (0.55-1.30); GLOMERULAR FILTRATION RATE > 90.0 (>58); POTASSIUM SERUM 4.1 MMOL/L (3.5-5.1); SODIUM LEVEL 145 MMOL/L (136-145)
[2025-04-13 17:03] LABS: ALT/SGPT 25 U/L (7.0-40); AST/SGOT 16 U/L (<34)
[2025-04-13 17:39] LABS: C REACTIVE PROTEIN QUANTITATIV < 0.50 MG/DL (<1.0)
== END ==
LOC: M LAB 15:38
PROVIDERS: ATTEND Internal Medicine
DX: M05.9 Rheumatoid arthritis with rheumatoid factor, unspecified (principal)

== ENCOUNTER → 2025-04-18 | Outpatient (CLI) | payer OTHER | LOC: M PLAIMG 11:19 | PROVIDERS: ATTEND Internal Medicine Critical Care Medicine | DX: J98.11 Atelectasis (principal) ==

== ENCOUNTER → 2025-04-26 | Outpatient (CLI) | payer OTHER ==
[~2025-04-26] VITALS: Ht 165.1 cm; Wt 81.8 kg
[~2025-04-26] MED LIST changes: +ALBUTEROL SULFATE 2.5 MG/0.5 ML INH CONCENTRATE NEB SOLN INH PRN; -COLC0.6T47 PO; +COLC0.6T53 PO; +EPINEPHrine INJ 1 MG/ML 1ML AMP IM PRN; +diphenhydrAMINE 50 MG/ML VIAL IV PRN
[2025-04-26 12:10] VITALS: BP 122/68; O2SAT 98
[2025-04-26] MEDS: ABATACEPT 750 MG OVER 30 MINUTES IV ONE (12:55)
[2025-04-26] MEDS: ACETAMINOPHEN 650 MG PO ONE (12:55)
== END ==
LOC: M INFU 12:03
PROVIDERS: ATTEND Internal Medicine
DX: M05.9 Rheumatoid arthritis with rheumatoid factor, unspecified (principal); Z88.8 Allergy status to other drugs, medicaments and biological substances
CPT/HCPCS: 96365; J0129

== ENCOUNTER → 2025-05-14 | Outpatient (CLI) | payer OTHER ==
[~2025-05-14] MED LIST changes: -ALBUTEROL SULFATE 2.5 MG/0.5 ML INH CONCENTRATE NEB SOLN INH PRN; -EPINEPHrine INJ 1 MG/ML 1ML AMP IM PRN; -diphenhydrAMINE 50 MG/ML VIAL IV PRN
[2025-05-14 17:37] LABS: BASO # 0.1 10^3/uL (0.0-0.2); BASO % 0.9 % (0.0-1.0); EOS # 0.1 10^3/uL (0.0-0.5); EOS % 1.2 % (0.0-3.0); LYMPH # 1.9 10^3/uL (1.5-5.0); LYMPH % 27.9 % (24.0-44.0); MONO # 0.7 10^3/uL (0.0-0.8); MONO % 10.7 % (2.0-8.0); NEUTROPHILS # 4.0 10^3/uL (1.5-8.5); NEUTROPHILS % 59.0 % (36.0-66.0); PLATELET COUNT, AUTOMATED 343 10^3/uL (150-450)
[2025-05-14 18:04] LABS: ALT/SGPT 20.0 U/L (7.0-40); AST/SGOT 15.0 U/L (<34); C REACTIVE PROTEIN QUANTITATIV 0.71 MG/DL (<1.0); CALCIUM LEVEL 8.6 MG/DL (8.5-10.1); CARBON DIOXIDE LEVEL 24.0 MMOL/L (20-31); CHLORIDE LEVEL 106.0 MMOL/L (98-107); CREATININE FOR GFR 0.98 MG/DL (0.55-1.30); GLOMERULAR FILTRATION RATE 74.4 (>58); POTASSIUM SERUM 4.1 MMOL/L (3.5-5.1); SODIUM LEVEL 142.0 MMOL/L (136-145)
[2025-05-14 18:42] LABS: ERYTHROCYTE SEDIMENTATION RATE 41 mm/hr (0-20)
== END ==
LOC: M LAB 17:00
PROVIDERS: ATTEND Internal Medicine
DX: M05.9 Rheumatoid arthritis with rheumatoid factor, unspecified (principal)

== ENCOUNTER 2025-05-16 18:39 | Emergency (ER) | payer OTHER ==
[~2025-05-16] VITALS: Ht 162.6 cm; Wt 82.7 kg
[~2025-05-16 18:39] MED LIST changes: +FERA1TAB PO; +HYDR200T46 PO; +SULF500T41 PO
[2025-05-16] MEDS ORDERED: AMOX875T (19:15)
[2025-05-16 20:46] LABS: BASO # 0.0 10^3/uL (0.0-0.2); BASO % 0.5 % (0.0-1.0); EOS # 0.0 10^3/uL (0.0-0.5); EOS % 0.0 % (0.0-3.0); LYMPH # 0.8 10^3/uL (1.5-5.0); LYMPH % 12.7 % (24.0-44.0); MONO # 0.8 10^3/uL (0.0-0.8); MONO % 11.8 % (2.0-8.0); NEUTROPHILS # 4.8 10^3/uL (1.5-8.5); NEUTROPHILS % 74.7 % (36.0-66.0); PLATELET COUNT, AUTOMATED 248 10^3/uL (150-450)
[2025-05-16] MEDS ORDERED: ISOVUE-370 76% 100 ML VIAL As Ordered ONE (21:13)
[2025-05-16 21:15] LABS: ALT/SGPT 20.0 U/L (7.0-40); AST/SGOT 18.0 U/L (<34)
[2025-05-16] MEDS: KETOROLAC 30 MG/ML 1 ML VIAL IV ONE (21:55)
[2025-05-16 22:45] VITALS: BP 112/67; O2SAT 100
[2025-05-16] MEDS ORDERED: REGL10TA6 PO (22:45)
[2025-05-16 22:55] VITALS: TEMP 99.4
== END 2025-05-16 23:03 | disposition home or self-care (01) ==
LOC: EDBD 18:39 → M ED 18:39
DX: K04.7 Periapical abscess without sinus (principal); R11.2 Nausea with vomiting, unspecified; E11.9 Type 2 diabetes mellitus without complications; Z88.8 Allergy status to other drugs, medicaments and biological substances; Z79.1 Long term (current) use of non-steroidal anti-inflammatories (NSAID); Z79.2 Long term (current) use of antibiotics; Z79.4 Long term (current) use of insulin; Z79.52 Long term (current) use of systemic steroids; Z79.899 Other long term (current) drug therapy
CPT/HCPCS: 70491; 71045; 80047; 80076; 83605; 83690; 85025; 87040; 96374; 96375; 99285; J1885; J2765; Q9967

== ENCOUNTER 2025-05-18 08:18 | Day surgery (SDC) | payer OTHER ==
[~2025-05-18] VITALS: Ht 162.6 cm; Wt 82.6 kg
[~2025-05-18 08:18] MED LIST changes: +AMOX875T; +LIDOCAINE 2% 100 MG/5 ML SDV (FOR ANES.) As Ordered ONE; +ONDANSETRON 4MG 2ML VIAL As Ordered ONE; +ROCURONIUM BROMIDE 50MG/5ML VIAL As Ordered ONE; +SUGAMMADEX SODIUM 500 MG/5 ML VIAL As Ordered ONE; +dexAMETHasone 4 MG/ML 1 ML VIAL As Ordered ONE; +dexAMETHasone 4 MG/ML 1 ML VIAL IV ONE
[2025-05-18] MEDS ORDERED: LR 1,000 ML IV SCH (08:40)
[2025-05-18] MEDS ORDERED: MIDAZOLAM INJ 2 MG/2 ML VIAL As Ordered ONE (08:55)
[2025-05-18] MEDS ORDERED: HYDROCORTISONE 100 MG/2 ML VIAL As Ordered ONE (09:10)
[2025-05-18] MEDS ORDERED: SCOPOLAMINE 1MG TRANSDERMAL PATCH TOP SCH (09:20)
[2025-05-18] MEDS: OXYMETAZOLINE 0.05% NASAL SPRAY As Ordered ONE (10:09)
[2025-05-18] MEDS: AMPICILLIN SOD/SULBACTAM SOD 3 GM in D5W MINI-BAG 100 ML IV ONE (10:16)
[2025-05-18] MEDS ORDERED: ACETAMINOPHEN 1000MG/100ML IV BAG As Ordered ONE (10:22)
[2025-05-18] MEDS: CHLORHEXIDINE GLUCONATE 0.12% 15 ML UDC As Ordered ONE (10:23)
[2025-05-18] MEDS ORDERED: MORPHINE 4 MG/ML 1 ML VIAL IV PRN (10:50)
[2025-05-18] MEDS ORDERED: ONDANSETRON 4MG 2ML VIAL IV PRN (10:50)
[2025-05-18 11:35] VITALS: BP_DIAS 57
[2025-05-18 12:15] VITALS: BP_SYST 140; TEMP 98.1; O2SAT 98
== END 2025-05-18 12:45 | disposition home or self-care (01) ==
LOC: M SDC 08:18
PROVIDERS: ATTEND Dentist
DX: K02.9 Dental caries, unspecified (principal); K12.2 Cellulitis and abscess of mouth; F40.232 Fear of other medical care; E10.9 Type 1 diabetes mellitus without complications; I25.10 Atherosclerotic heart disease of native coronary artery without angina pectoris; I25.2 Old myocardial infarction; Z91.018 Allergy to other foods; Z88.8 Allergy status to other drugs, medicaments and biological substances; Z79.899 Other long term (current) drug therapy; Z96.41 Presence of insulin pump (external) (internal)
CPT/HCPCS: 81025; 88300; D7210; D7511; J0131; J0295; J0666; J1100; J1720; J2250; J2405; J3010

== ENCOUNTER → 2025-06-15 | Outpatient (CLI) | payer OTHER ==
[~2025-06-15] MED LIST changes: -LIDOCAINE 2% 100 MG/5 ML SDV (FOR ANES.) As Ordered ONE; -ONDANSETRON 4MG 2ML VIAL As Ordered ONE; -ROCURONIUM BROMIDE 50MG/5ML VIAL As Ordered ONE; -SUGAMMADEX SODIUM 500 MG/5 ML VIAL As Ordered ONE; -dexAMETHasone 4 MG/ML 1 ML VIAL As Ordered ONE; -dexAMETHasone 4 MG/ML 1 ML VIAL IV ONE
[2025-06-15 17:53] LABS: BASO # 0.0 10^3/uL (0.0-0.2); BASO % 0.6 % (0.0-1.0); EOS # 0.1 10^3/uL (0.0-0.5); EOS % 1.4 % (0.0-3.0); LYMPH # 2.4 10^3/uL (1.5-5.0); LYMPH % 36.2 % (24.0-44.0); MONO # 0.6 10^3/uL (0.0-0.8); MONO % 9.4 % (2.0-8.0); NEUTROPHILS # 3.4 10^3/uL (1.5-8.5); NEUTROPHILS % 52.1 % (36.0-66.0); PLATELET COUNT, AUTOMATED 334 10^3/uL (150-450)
[2025-06-15 17:55] LABS: C REACTIVE PROTEIN QUANTITATIV < 0.50 MG/DL (<1.0)
[2025-06-15 17:56] LABS: ALT/SGPT 28 U/L (7.0-40); AST/SGOT 24 U/L (<34); CALCIUM LEVEL 8.7 MG/DL (8.5-10.1); CARBON DIOXIDE LEVEL 24 MMOL/L (20-31); CHLORIDE LEVEL 108 MMOL/L (98-107); CREATININE FOR GFR 0.64 MG/DL (0.55-1.30); GLOMERULAR FILTRATION RATE > 90.0 (>58); POTASSIUM SERUM 4.1 MMOL/L (3.5-5.1); SODIUM LEVEL 144 MMOL/L (136-145)
== END ==
LOC: M PLALAB 15:12
PROVIDERS: ATTEND Internal Medicine
DX: M05.9 Rheumatoid arthritis with rheumatoid factor, unspecified (principal)

== ENCOUNTER → 2025-06-21 | Outpatient (CLI) | payer OTHER ==
[~2025-06-21] VITALS: Ht 162.6 cm; Wt 79.5 kg
[~2025-06-21] MED LIST changes: +ACETAMINOPHEN 650 MG PO ONE; +ALBUTEROL SULFATE 2.5 MG/0.5 ML INH CONCENTRATE NEB SOLN INH PRN; +EPINEPHrine INJ 1 MG/ML 1ML AMP IM PRN; +diphenhydrAMINE 50 MG/ML VIAL IV PRN
[2025-06-21 17:35] VITALS: BP 168/90; O2SAT 100
[2025-06-21] MEDS: ABATACEPT 750 MG OVER 30 MINUTES IV ONE (17:40)
[2025-06-21 18:06] VITALS: BP 143/71; O2SAT 99
== END ==
LOC: M INFU 17:24
PROVIDERS: ATTEND Internal Medicine
DX: M05.9 Rheumatoid arthritis with rheumatoid factor, unspecified (principal); Z88.8 Allergy status to other drugs, medicaments and biological substances
CPT/HCPCS: 96365; J0129

== ENCOUNTER → 2025-07-09 | Outpatient (CLI) | payer OTHER ==
[~2025-07-09] MED LIST changes: -ACETAMINOPHEN 650 MG PO ONE; -ALBUTEROL SULFATE 2.5 MG/0.5 ML INH CONCENTRATE NEB SOLN INH PRN; -EPINEPHrine INJ 1 MG/ML 1ML AMP IM PRN; -LABE100T6 PO; +LABE100T91 PO; -diphenhydrAMINE 50 MG/ML VIAL IV PRN
== END ==
LOC: M RAD 12:25
PROVIDERS: ATTEND Internal Medicine Cardiovascular Disease
DX: R07.9 Chest pain, unspecified (principal)

== ENCOUNTER → 2025-07-11 | Outpatient (CLI) | payer OTHER ==
[2025-07-11 18:03] LABS: BASO # 0.1 10^3/uL (0.0-0.2); BASO % 0.8 % (0.0-1.0); EOS # 0.1 10^3/uL (0.0-0.5); EOS % 0.9 % (0.0-3.0); LYMPH # 2.2 10^3/uL (1.5-5.0); LYMPH % 33.3 % (24.0-44.0); MONO # 0.6 10^3/uL (0.0-0.8); MONO % 8.6 % (2.0-8.0); NEUTROPHILS # 3.7 10^3/uL (1.5-8.5); NEUTROPHILS % 56.1 % (36.0-66.0); PLATELET COUNT, AUTOMATED 348 10^3/uL (150-450)
[2025-07-11 18:30] LABS: ALT/SGPT 23 U/L (7.0-40); AST/SGOT 19 U/L (<34); C REACTIVE PROTEIN QUANTITATIV < 0.50 MG/DL (<1.0); CALCIUM LEVEL 8.5 MG/DL (8.5-10.1); CARBON DIOXIDE LEVEL 28 MMOL/L (20-31); CHLORIDE LEVEL 104 MMOL/L (98-107); CREATININE FOR GFR 0.65 MG/DL (0.55-1.30); GLOMERULAR FILTRATION RATE > 90.0 (>58); POTASSIUM SERUM 4.0 MMOL/L (3.5-5.1); SODIUM LEVEL 141 MMOL/L (136-145)
== END ==
LOC: M LAB 16:11
PROVIDERS: ATTEND Internal Medicine
DX: M05.9 Rheumatoid arthritis with rheumatoid factor, unspecified (principal)

== ENCOUNTER 2025-07-19 12:44 | Outpatient (CLI) | payer OTHER ==
[~2025-07-19] VITALS: Ht 162.6 cm; Wt 81.3 kg
[~2025-07-19 12:44] MED LIST changes: +ACETAMINOPHEN 650 MG PO ONE; +ALBUTEROL SULFATE 2.5 MG/0.5 ML INH CONCENTRATE NEB SOLN INH PRN; +EPINEPHrine INJ 1 MG/ML 1ML AMP IM PRN; +diphenhydrAMINE 50 MG/ML VIAL IV PRN
[2025-07-19 12:55] VITALS: BP 169/73; O2SAT 100
[2025-07-19] MEDS: ABATACEPT 750 MG OVER 30 MINUTES IV ONE (13:18)
[2025-07-19 14:00] VITALS: BP 172/80; O2SAT 99
== END 2025-07-19 14:00 ==
LOC: M INFU 12:44
PROVIDERS: ATTEND Internal Medicine
DX: M05.9 Rheumatoid arthritis with rheumatoid factor, unspecified (principal); Z88.8 Allergy status to other drugs, medicaments and biological substances
CPT/HCPCS: 96365; J0129

== ENCOUNTER → 2025-08-15 | Outpatient (CLI) | payer OTHER ==
[~2025-08-15] MED LIST changes: -ACETAMINOPHEN 650 MG PO ONE; -ALBUTEROL SULFATE 2.5 MG/0.5 ML INH CONCENTRATE NEB SOLN INH PRN; -EPINEPHrine INJ 1 MG/ML 1ML AMP IM PRN; -diphenhydrAMINE 50 MG/ML VIAL IV PRN
[2025-08-15 14:06] LABS: BASO # 0.0 10^3/uL (0.0-0.2); BASO % 0.6 % (0.0-1.0); EOS # 0.0 10^3/uL (0.0-0.5); EOS % 0.8 % (0.0-3.0); LYMPH # 2.3 10^3/uL (1.5-5.0); LYMPH % 48.1 % (24.0-44.0); MONO # 0.5 10^3/uL (0.0-0.8); MONO % 10.1 % (2.0-8.0); NEUTROPHILS # 1.9 10^3/uL (1.5-8.5); NEUTROPHILS % 40.0 % (36.0-66.0); PLATELET COUNT, AUTOMATED 236 10^3/uL (150-450)
[2025-08-15 14:13] LABS: ALT/SGPT 26 U/L (7.0-40); AST/SGOT 24 U/L (<34); C REACTIVE PROTEIN QUANTITATIV 0.71 MG/DL (<1.0); CALCIUM LEVEL 8.5 MG/DL (8.5-10.1); CARBON DIOXIDE LEVEL 28 MMOL/L (20-31); CHLORIDE LEVEL 106 MMOL/L (98-107); CREATININE FOR GFR 0.79 MG/DL (0.55-1.30); GLOMERULAR FILTRATION RATE > 90.0 (>58); POTASSIUM SERUM 4.1 MMOL/L (3.5-5.1); SODIUM LEVEL 143 MMOL/L (136-145)
== END ==
LOC: M PLALAB 11:00
PROVIDERS: ATTEND Internal Medicine
DX: M05.9 Rheumatoid arthritis with rheumatoid factor, unspecified (principal)